=== PATIENT | female | born 1940 | race Caucasian/White ===

== ENCOUNTER → 2021-12-23 14:35 | Outpatient (CLI) | payer MEDICARE, MEDICAID, SELFPAY ==
--- NOTE | ~2021-12-23 | DEXA_ITS ---
Bone Density Report Name: ORLANDO ELENA Age: 81 Sex: Female Ethnicity: White Date of : 1940 Indication: osteopenia; monitoring treatment; height loss; asthma or emphysema; postmenopausal Referring Provider: DINO DODGE Study: Bone densitometry was performed. Exam Date: December 23, 2021 Accession number: [id number] Bone Density: Region BMD T-score Z-score Classification Femoral Neck (Left) 0.473 -3.4 -1.1 Osteoporosis Total Hip (Left) 0.765 -1.4 0.6 Osteopenia Femoral Neck (Right) 0.560 -2.6 -0.3 Osteoporosis Total Hip (Right) 0.798 -1.2 0.9 Osteopenia Total Hip Mean 0.782 -1.3 0.8 Osteopenia World Health Organization criteria for BMD impression classify patients as: Normal (T-score at or above -1.0), Osteopenia (T-score between -1.0 and -2.5), or Osteoporosis (T-score at or below -2.5). 10-year Fracture Risk: FRAX not reported because: Some T-score for Spine Total or Hip Total or Femoral Neck at or below -2.5 Treated for osteoporosis Previous Exams: Region Exam Age BMD T-score BMD Change BMD Change Date g/cm2 vs Baseline vs Previous Total Hip(Left) 12/23/2021 81 0.765 -1.4 -0.078* -0.028* 05/07/2017 77 0.793 -1.2 -0.050* 0.041* 04/16/2015 75 0.753 -1.6 -0.091* -0.061* 05/27/2012 72 0.814 -1.0 -0.030* -0.030* 03/18/2007 66 0.844 -0.8 Total Hip(Right) 12/23/2021 81 0.798 -1.2 -0.032* 0.041* 05/07/2017 77 0.757 -1.5 -0.073* -0.002 04/16/2015 75 0.759 -1.5 -0.071* -0.027 05/27/2012 72 0.786 -1.3 -0.044* -0.044* 03/18/2007 66 0.830 -0.9 *Denotes significance at 95% confidence level, LSC for Total Hip = 0.027 g/cm2 Clinical Information Provided by Patient: Is being treated for osteoporosis Has used the following medications: Boniva (i.e. ibandronate), Vitamin D, Calcium Has the following medical conditions: Asthma or Emphysema Patient maximum height was 60 Menopause Age: 44 No regular weight bearing exercise Onset of menses at age 13 Number of children 2 Impression: The patient has osteoporosis, based on the Left Femoral Neck T-score. The BMD for the Total Hip(Left) decreased, changing by -0.028 since the last DXA exam. Discussion: SIGNIFICANT BONE LOSS OBSERVED. Adherence to therapy (including calcium and vitamin D intake) should be assessed. If compliance is not a factor, review management and exclusion of seconda
== END ==
PROVIDERS: PCP Emergency Medicine; Visit Provider Emergency Medicine
DX: Z78.0 Asymptomatic menopausal state (principal); M81.0 Age-related osteoporosis without current pathological fracture; M85.852 Other specified disorders of bone density and structure, left thigh; M85.851 Other specified disorders of bone density and structure, right thigh
CPT/HCPCS: 77080

== ENCOUNTER 2024-06-26 23:57 | Observation (INO) | payer MEDICARE, MEDICAID, SELFPAY ==
--- NOTE | ~2024-06-26 | CT_ITS ---
Non-contrast Head CT History: Syncope Technique: Axial non-contrast imaging of the brain was performed. Dose reduction technique was used on this scan by utilizing automated exposure control and iterative reconstruction technique. The dose -length product (DLP) was 605.33 mGy-cm. Findings: There is no evidence of intracranial hemorrhage, mass lesion, or acute infarct. Brain par enchyma appears normal. The ventricles and subarachnoid spaces are normal in size. The calvarium ap pears normal. The visualized paranasal sinuses and mastoid air cells are clear. Impression: No significant abnormality seen. Reviewed, dictated and finalized at location . AD CUTTER Impression: No significant abnormality seen.
--- NOTE | ~2024-06-26 | US_ITS ---
EXAMINATION: US carotid duplex BI DATE: 06/27/2024 15:15 INDICATION: Syncope TECHNIQUE: Grayscale, color Doppler, and pulsed Doppler images of the cervical carotid arteries were obtained. The degree of vessel stenosis is placed in one of the following categories: normal, <50%, 5 0-69%, >=70% but less than near-occlusion, near-occlusion, or total occlusion. Note that percent sten osis relative to normal distal artery lumen diameter is indirectly measured from velocity measurement s as described by Wilfredo, et al. Radiology 2003; 229:340-346. Notes: Normal: Peak systolic velocity <125 centimeters/sec and no plaque <50%. Peak systolic velocity <125 ( EDV <40; ICA/CCA PSV ratio <2.0; used these factors only a tandem lesions or low cardiac output or co ntralateral disease) 50-69 %: PSV 125-230 (EDV 40-100; ratio 2-4) >= 70% but less than near occlusion: PSV greater than 230 (EDV > 100; ratio> 4.0) Near Occlusion: PSV that is variable; markedly narrowed lumen Occlusion: Absent flow on color/spectral Doppler and no lumen on rangel scale. COMPARISON: None. FINDINGS: RIGHT: The right common carotid artery (CCA) peak systolic velocity (PSV) is 64 cm/s. The right internal car otid artery (ICA) PSV is 86 cm/s. The right ICA end-diastolic velocity (EDV) is 17 cm/s. The right IC A/CCA PSV ratio is 1.3. The external carotid artery (ECA) PSV is 123 cm/s. There is antegrade flow in the right vertebral artery. LEFT: The left CCA PSV is 84 cm/s. The left ICA PSV is 105 cm/s. The left ICA EDV is 18 cm/s. The left ICA/ CCA PSV ratio is 1.3. The ECA PSV is 139 cm/s. There is antegrade flow in the left vertebral artery. IMPRESSION: 1. Less than 50% stenosis in the right internal carotid artery by sonographic criteria. 2. Less than 50% stenosis in the left internal carotid artery by sonographic criteria. Reviewed, dictated and finalized at location B. ER LUMBER STRAIGHTENER IMPRESSION: 1. Less than 50% stenosis in the right internal carotid artery by sonographic marleni blue. 2. Less than 50% stenosis in the left internal carotid artery by sonographic glo [place].
--- NOTE | ~2024-06-26 | CT_ITS ---
Noncontrast CT scan of the cervical spine Technique: Multiple contiguous axial [address] images of the cervical spine were obtained and rec onstructed in 2D sagittal and coronal planes on the acquisition scanner. Dose reduction technique was used on this scan by utilizing automated exposure control, adjustment of the mA and/or kV according to patient size. The dose-length product (DLP) was 242.03 mGy-cm. Clinical History: Pain Findings: No acute fracture. There is minimal grade 1 anterolisthesis of C4 over C5. There is straigh tening of the normal cervical lordosis. There is minimal grade 1 retrolisthesis of C5 over C6. There is severe degenerative disc narrowing at C3-C4, C5-C6, C6-C7. There is scattered facet joint degenera tive changes cervical spine. There is left neural foraminal narrowing at C5-C6 with probable mild can al stenosis at this level. Bilateral neural foraminal narrowing at C6-C7 with mild canal stenosis. No prevertebral soft tissue swelling. Impression: No acute fracture. Degenerative spondylosis, as above. Reviewed, dictated and finalized at [facility]. ATE CLERK Impression: No acute fracture. Degenerative spondylosis, as above.
--- NOTE | ~2024-06-26 | XR_ITS ---
Left Knee Technique: AP, lateral, and oblique views were obtained. Clinical History: Pain Findings: No fracture or dislocation is seen. Osseous alignment is anatomic. Joint spaces are preserv ed without degenerative or erosive change. Soft tissues are unremarkable. No joint effusion is seen. Impression: Unremarkable left knee radiographs. Reviewed, dictated and finalized at [facility]. MILL AND LATHE OPERATOR Impression: Unremarkable left knee radiographs.
--- NOTE | ~2024-06-26 | XR_ITS ---
Portable chest x-ray Comparison: 04/25/2012 Clinical History: Syncope Findings: Probable mild central congestive changes and possible minimal bibasilar pulmonary disease change. Cardiomediastinal silhouette is stable. Bones and soft tissues are unremarkable. Impression: Possible minimal bibasilar pulmonary edema with minimal central congestive change. Stable cardiomegaly. Reviewed, dictated and finalized at location . DING HOUSE COOK Impression: Possible minimal bibasilar pulmonary edema with minimal central congestive [place]. Stable cardiomegaly.
[2024-06-26 23:58] VITALS: BP 155/94; PULSE 50; RESP 22; TEMP 36.8; O2SAT 97
[2024-06-27] VITALS (38 sets, daily range): BP systolic 103–220; BP diastolic 40–111; PULSE 50–83; RESP 13–30; TEMP 36.6–37.8; O2SAT 92–99; BMI 29.7; BMI 29.9
--- NOTE | 2024-06-27 | ECHO_ITS ---
Patient Info Name: Brianna Martinez Age: 84 years : 1940 Gender: Female Ht: 59 in Wt: 148 lbs BSA: 1.70 m2 HR: 66 bpm BP: 174 / 79 mmHg Technical Quality: Good Exam Date: 06/27/2024 12:22 PM Exam Location: Echo Lab Exam Room: ICU 9 Patient Status: Outpatient Admit Date: 06/27/2024 Staff Ordering Physician: Ruby Hall DO Grease Buffer: Nika Oliveros RDCS Attending Provider: Ruby Hall DO Referring Physician: Isabel DILLARD; Exam Type: CA echo doppler color flow Study Info Complete two-dimensional, color flow and Doppler transthoracic echocardiogram is performed. Summary 1. Left ventricular chamber dimension is normal. 2. Left ventricular systolic function is normal, estimated at >70%. 3. There is moderately increased left ventricular wall thickness. 4. The left ventricular diastolic function is grade I diastolic dysfunction. 5. Right ventricular systolic function is normal. 6. Left atrial chamber dimension is moderately enlarged. 7. Right atrial chamber dimension is moderately enlarged. 8. There is severe aortic valve calcification. 9. There is mild aortic valve stenosis. 10. There is mild aortic valve regurgitation. 11. There is mild mitral valve regurgitation. 12. There is moderate tricuspid valve regurgitation. 13. Pulmonary hypertension. Estimated pulmonary arterial systolic pressure is 73 mmHg. 14. There is trivial anterior pericardial effusion. Left Ventricle Left ventricular chamber dimension is normal. Left ventricular systolic function is normal, estimated at >70%. There is moderately increased left ventricular wall thickness. The left ventricular diastolic function is grade I diastolic dysfunction. Right Ventricle Right ventricular chamber dimension is normal. Right ventricular systolic function is normal. Left Atria Left atrial chamber dimension is moderately enlarged. Right Atria Right atrial chamber dimension is moderately enlarged. Atrial Septum Intact interatrial septum visualized by color flow imaging. Aortic Valve There is mild aortic valve stenosis. There is mild aortic valve regurgitation. There is severe aortic valve calcification. Pulmonic Valve The pulmonic valve is not well visualized. There is no pulmonic regurgitation. Mitral Valve There is mild mitral valve regurgitation. Tricuspid Valve There is moderate tricuspid valve regurgitation. Pulmonary hypertension. Estimated pulmonary arterial systolic pressure is 73 mmHg. Pericardium/Pleural There is trivial anterior pericardial effusion. Inferior Vena Cava Normal inferior vena cava with >50% collapse upon inspiration consistent with normal right atrial pressure, 3 mmHg. Aorta The aortic root size at the sinus of Valsalva is normal. Left Ventricular Outflow Tract Name Value Normal LVOT 2D LVOT Diameter 1.8 cm LVOT Doppler LVOT Peak Gradient 10 mmHg LVOT Mean Gradient 7 mmHg LVOT VTI 34 cm LVOT VTI/AV VTI Ratio 0.6 LVOT Stroke Volume 86 ml LVOT CO 6.2 l/min LVOT CI 3.6 l/min/m2 Pulmonic Valve Name Value Normal PV Doppler PV Peak Gradient 5 mmHg Mitral Valve Name Value Normal MV Doppler MV Peak Gradient 12 mmHg MV Mean Gradient 4 mmHg MV Decel [place] 589 cm/s2 MV PHT 68 ms MV Area (PHT) 3.2 cm2 4.0-5.0 MV Area (Cont Eq VTI) 1.9 cm2 MV Diastolic Function MV E Peak Velocity 138 cm/s MV A Peak Velocity 149 cm/s MV E/A 0.9 MV Decel Time 235 ms MV Annular TDI MV E/e' (Septal) 34.0 <=8.0 MV E/e' (Lateral) 40.8 <=8.0 MV E/e' (Average) 37.4 Tricuspid Valve Name Value Normal TV Regurgitation Doppler TR Peak Velocity 418 cm/s TR Peak Gradient 62 mmHg Estimated PAP/RSVP RA Pressure 3 mmHg <=5 PA Systolic Pressure 73 mmHg <36 RV Systolic Pressure 73 mmHg <36 Aortic Valve Name Value Normal AV Doppler AV Peak Velocity 261 cm/s AV Peak Gradient 23 mmHg AV Mean Gradient 13 mmHg AV VTI 55 cm AV Area (Cont Eq VTI) 1.6 cm2 >=3.0 AV Area (Cont Eq Jovani) 1.7 cm2 AV Regurgitation 2D LVOT Area 2.5 cm2 AV Regurgitation Doppler AR Decel Time 1,784 ms AR Decel [place] 196 cm/s2 AR PHT 517 ms Ventricles Name Value Normal LV Dimensions 2D/MM IVS Diastolic Thickness (2D) 2.9 cm 0.6-1.0 LVID Diastole (2D) 4.3 cm 3.8-5.2 LVIW Diastolic Thickness (2D) 0.9 cm 0.6-0.9 LVID Systole (2D) 3.3 cm 2.2-3.5 LVOT Diameter 1.8 cm LV Mass (2D Cubed) 385.78 g 67.00-162.00 LV Mass Index (2D Cubed) 227 g/m2 43-95 Relative Wall Thickness (2D) 0.44 LV Fractional Shortening/Ejection Fraction 2D/MM LV Fractional Shortening (2D) 24 % 27-45 LV EF (2D Teicholz) 48 % 54-74 LV Diastolic Volume (4C MOD) 74 ml LV EF (4C MOD) 60 % LV Diastolic Length (4C) 6.7 cm LV Systolic Length (4C) 5.3 cm LV Stroke Volume (4C MOD) 44 ml Atria Name Value Normal LA Dimensions LA Volume (4C A-L) 65 ml RA Dimensions RA Area (4C) 17.5 cm2 <=18.0 Report Signatures
--- NOTE | 2024-06-27 00:01 | ECG_ITS ---
Test Date: 2024-06-27 00:01:39 Measurements Intervals [place] Rate: 48 P: 257 SD: 344 QRS: -42 QRSD: 137 T: 83 QT: 430 QTc: 386 Interpretive Statements SINUS BRADYCARDIA WITH SINUS ARRHYTHMIA LEFT AXIS DEVIATION [QRS AXIS < -30] RIGHT BUNDLE BRANCH BLOCK [120+ ms QRS DURATION, UPRIGHT V1, 40+ ms S IN I/aVL/V4/V5/V6] LEFT VENTRICULAR HYPERTROPHY AND ST-T CHANGE [VOLTAGE CRITERIA PLUS ST/T ABNORMALITY] BASELINE ARTIFACT LIMITS INTERPRETATION No previous ECG available for comparison Electronically Signed On 06-28-2024 17:20:38 MAILING MANAGER by Neeraj Lambert M.D.
[2024-06-27] MEDS: SODIUM CHLORIDE 0.9% IV 1,000 ML 999 ML IV CONT (00:07)
[2024-06-27] MEDS: GLUCAGON FOR INJ 1 MG VIAL IV PUSH (00:10)
[2024-06-27 00:22] LABS: Basophils Percent Auto 0.3 % (0.2-1.2); Eosinophils Absolute Auto 0.2 K/mm3 (0-0.3); Eosinophils Percent Auto 2.3 % (0-4.4); Hematocrit 37.9 % (37.0-47.0); Immature Granulocyte Absolute 0.03 K/mm3 (0.00-0.031); Immature Granulocyte Percent A 0.3 % (0-0.5); Lymphocytes Absolute Auto 2.31 K/mm3 (0.9-3.2); Lymphocytes Percent Auto 23.5 % (18.3-44.2); Mean Corpuscular HGB Conc 34.3 g/dl (32-36); Mean Corpuscular Hemoglobin 32.3 pg (26-34); Mean Corpuscular Volume 94.3 fl (80-100); Mean Platelet Volume 10.1 fl (7.4-10.4); Monocytes Absolute Auto 0.9 K/mm3 (0.1-0.6); Monocytes Percent Auto 9.3 % (2.6-8.5); Neutrophils Absolute Auto 6.3 K/mm3 (1.3-6.7); Neutrophils Percent Auto 64.3 % (45.5-73.1); Platelet Count Result 206 k/mm3 (150-375); Red Blood Count 4.02 M/mm3 (4.2-5.4); Red Cell Distribution Width 13.4 % (11.5-14.5); White Blood Count 9.8 K/mm3 (4.5-10.0)
[2024-06-27 00:32] LABS: Lactic Acid Reflex 1.2 mmol/L (0.7-2.0)
[2024-06-27 00:33] LABS: Alanine Aminotransferase 28 U/L (6-35); Albumin Level 3.7 g/dL (3.5-5.1); Alkaline Phosphatase 52 U/L (38-126); Anion Gap 6 mmol/L (4-12); Aspartate Amino Transferase 29 U/L (14-36); Bilirubin,Total 0.8 mg/dL (0.2-1.3); Blood Urea Nitrogen 32 mg/dL (7-17); Calcium 9.5 mg/dL (8.4-10.2); Carbon Dioxide 27 mmol/L (22-30); Chloride 101 mmol/L (98-107); Estimated Glomerular Filt Rate 45; Glucose 140 mg/dL (65-110); Lipase 145 U/L (23-300); Magnesium 1.7 mg/dL (1.6-2.3); Potassium 4.1 mmol/L (3.4-5.0); Sodium 134 mmol/L (137-145)
[2024-06-27 00:34] LABS: Partial Thromboplastin Time 26.8 Seconds (22.3-36.8); Prothrombin Time 13.2 Seconds (11.1-14.7)
[2024-06-27 00:45] LABS: NT Pro B Type Natriuretic Pept 1390 pg/mL (19.9-100); Troponin I 0.017 ng/mL (0.000-0.034)
[2024-06-27] MEDS: DOPamine 400 MG/D5W 250 ML 400 MG/250 ML BAG 5.05 MG IV CONT (00:56)
[2024-06-27 00:58] LABS: Influenza A QL RT-PCR Negative (Negative); Influenza B QL RT-PCR Negative (Negative); RSV RNA, RT-PCR Negative (Negative); SARS-CoV-2 RNA PCR Negative (Negative)
--- NOTE | 2024-06-27 00:58 | ED.GENADULT ---
HPI - General Adult General Chief complaint: Syncope Stated complaint: FALL S/P SYNCOPAL EPISODE, BRADYCARDIC Time Seen by Provider: 06/27/24 00:02 History of Present Illness HPI narrative: Patient 84-year-old female who presents emergency department with chief complaint of syncopal episode. The patient reports she got up to go to the bathroom and as she was walking to the bathroom had a syncopal episode the patient states she felt lightheaded and the next thing as she was on the ground. The patient reports she has pain in her left knee where she has a bruise the patient states that she has felt lightheaded when EMS arrived they noticed that she was bradycardic and had several episodes of pauses. The patient does report that she takes [employer] Related Data Home Medications ?Medication ?Instructions ?Recorded ?Confirmed ?Last Taken ?Type multivitamin 1 tablet PO .COMPLEX 08/07/19 03/22/24 Unknown History niacin 500 mg tablet 500 mg PO TID 08/07/19 03/22/24 Unknown History calcium 600 mg (as carbonate)-vit tablet PO BID 01/02/20 03/22/24 Unknown History D3 10 mcg (400 unit) chewable tablet cholecalciferol (vitamin D3) 125 See Rx Instructions .Route .COMPLEX 01/02/20 03/22/24 Unknown History mcg (5,000 unit) capsule albuterol sulfate 90 mcg/actuation 1 puff inhalation Q4H PRN 11/02/23 03/22/24 Unknown History aerosol inhaler Allergies Allergy/AdvReac Type Severity Reaction Status Date / Time epinephrine Allergy Unknown unknown Verified 02/29/24 10:03 Penicillins Allergy Unknown unknown Verified 02/29/24 10:03 Review of Systems Review of Systems: A 10 system review of systems was completed on the patient and is negative except for what is stated in the HPI. Nursing and ancillary documentation was reviewed. [facility] Past Medical History Medical History Ringworm of body Body mass index [BMI] 30.0-30.9, adult (07/20/17) Body mass index [BMI] 31.0-31.9, adult (11/10/16) Body mass index [BMI] 32.0-32.9, adult (05/07/15) Body mass index [BMI] 33.0-33.9, adult (11/05/15) Bullous pemphigoid Hyperglycemia Left foot pain Other dorsalgia Other hyperlipidemia Pain in left may Right shoulder pain Mammogram declined HTN (hypertension) Osteoporosis Family History Family History Father Family history of malignant neoplasm, Onset Age: 67 Mother Family history of malignant neoplasm, Onset Age: 67 Social History Social History Smoking status: Never smoker Second hand tobacco smoke exposure: No Alcohol intake: never Substance use: never Substance use type: does not use Current Housing: Decline to Answer Concerned About Future Housing: Decline to Answer Difficulty Paying Gas/Electric Bills: Decline to Answer Difficulty Paying for Meds: Decline to Answer Currently Unemployed: Decline to Answer Education: Decline to Answer Difficulty w/ Childcare or Family Care: Decline to Answer Gender identity (if verbalized by the patient): Female Spiritual care concerns: No Agree to blood products: Yes Exam Narrative: GENERAL: Well-appearing, well-nourished, and in no acute distress. HEAD: Normocephalic, atraumatic. EYES: PERRLA and EOMI. ENT: Nares clear, no rhinorrhea or epistaxis. Mucous membranes moist. NECK: Supple. CHEST: Clear to auscultation. No respiratory distress. HEART: Bradycardic rate and regular rhythm. No murmur heard. Normal peripheral pulses. ABDOMEN: Soft, nontender, nondistended, normal active bowel sounds. EXTREMITIES: Normal range of motion. No edema. SKIN: Warm, dry, no rash. NEURO: No focal deficits. Alert and oriented x3. PSYCH: Normal mood and affect. Course Vital Signs Vital signs: Vital Signs Temperature 36.8 C 06/26/24 23:58 Pulse Rate 50 L 06/26/24 23:58 Respiratory Rate 22 H 06/26/24 23:58 Blood Pressure 155/94 H 06/26/24 23:58 Pulse Oximetry 97 06/26/24 23:58 Oxygen Delivery Room Air 06/26/24 23:58 Temperature 36.8 C 06/26/24 23:58 Pulse Rate 65 06/27/24 02:06 Respiratory Rate 22 H 06/27/24 02:06 Blood Pressure 171/62 H 06/27/24 02:06 Pulse Oximetry 93 06/27/24 02:06 Oxygen Delivery Room Air 06/26/24 23:58 Medical Decision Making [facility] [place] Narrative Medical decision making narrative: Differential diagnosis includes beta-cosmo new some bradycardia, sick sinus syndrome, bradycardia, electrolyte abnormality, renal failure, intracranial hemorrhage CT head CT C-spine showed no acute abnormality CBC showed white count 9.8 hemoglobin was 13.0 electrolytes showed a creatinine of 1.15 and BUN of 32 lactic acid was 1.2 troponin 0.017 COVID flu and RSV were negative While in the emergency department the patient had a episode where she proceeded Lazaro down into the 20s and had a near syncopal episode. The patient was given glucagon to attempt to reverse the effects of her beta-cosmo and also the patient was started on a low-dose dopamine drip that has maintained the patient's heart rate. The case was discussed with both the hospitalist insurance sales producer and cardiology Vital Signs Vital Signs: Vital Signs Temperature 36.8 C 06/26/24 23:58 Pulse Rate 50 L 06/26/24 23:58 Respiratory Rate 22 H 06/26/24 23:58 Blood Pressure 155/94 H 06/26/24 23:58 Pulse Oximetry 97 06/26/24 23:58 Oxygen Delivery Room Air 06/26/24 23:58 Temperature 36.8 C 06/26/24 23:58 Pulse Rate 65 06/27/24 02:06 Respiratory Rate 22 H 06/27/24 02:06 Blood Pressure 171/62 H 06/27/24 02:06 Pulse Oximetry 93 06/27/24 02:06 Oxygen Delivery Room Air 06/26/24 23:58 Lab Data 06/27/24 00:14 06/27/24 00:14 Labs: Lab Results 06/27/24 Range/Units 00:14 WBC 9.8 (4.5-10.0) K/mm3 RBC 4.02 L (4.2-5.4) M/mm3 Hgb 13.0 (12.0-15.0) g/dL Hct 37.9 (37.0-47.0) % MCV 94.3 (80-100) fl MCH 32.3 (26-34) pg MCHC 34.3 (32-36) g/dl RDW 13.4 (11.5-14.5) % Plt Count 206 (150-375) k/mm3 MPV 10.1 (7.4-10.4) fl Immature Gran % (Auto) 0.3 (0-0.5) % Neut % (Auto) 64.3 (45.5-73.1) % Lymph % (Auto) 23.5 (18.3-44.2) % [place] % (Auto) 9.3 H (2.6-8.5) % Eos % (Auto) 2.3 (0-4.4) % Baso % (Auto) 0.3 (0.2-1.2) % Lymph # (Auto) 2.31 (0.9-3.2) K/mm3 [place] # (Auto) 0.9 H (0.1-0.6) K/mm3 Eos # (Auto) 0.2 (0-0.3) K/mm3 Baso # (Auto) 0.0 (0.0-0.1) K/mm3 Abs Immat Gran (auto) 0.03 (0.00-0.031) K/mm3 Absolute Neuts (auto) 6.3 (1.3-6.7) K/mm3 Absolute Nucleated RBC 0.000 (0.0-0.012) K/mm3 Nucleated RBC % 0.0 (0.0-0.2) % PT 13.2 (11.1-14.7) Seconds INR 1.0 APTT 26.8 (22.3-36.8) Seconds Sodium 134 L (137-145) mmol/L Potassium 4.1 (3.4-5.0) mmol/L Chloride 101 (98-107) mmol/L Carbon Dioxide 27 (22-30) mmol/L Anion Gap 6 (4-12) mmol/L BUN 32 H (7-17) mg/dL Creatinine 1.15 H (0.7-1.0) mg/dL Estim Creat Clear Calc Not Reportable Estimated GFR 45 L (59 - ) Glucose 140 H (65-110) mg/dL Lactic Acid 1.2 (0.7-2.0) mmol/L Calcium 9.5 (8.4-10.2) mg/dL Magnesium 1.7 (1.6-2.3) mg/dL Total Bilirubin 0.8 (0.2-1.3) mg/dL AST 29 (14-36) U/L ALT 28 (6-35) U/L Alkaline Phosphatase 52 (38-126) U/L Troponin I 0.017 (0.000-0.034) ng/mL NT-Pro-B Natriuret Pep 1390 H (19.9-100) pg/mL Total Protein 7.0 (6.3-8.2) g/dL Albumin 3.7 (3.5-5.1) g/dL Lipase 145 (23-300) U/L Influenza A (RT-PCR) Negative (Negative) Influenza B (RT-PCR) Negative (Negative) RSV (RT-PCR) Negative (Negative) SARS-CoV-2 RNA (RT-PCR) Negative (Negative) Critical Care Time Critical Care Time Critical Care Time: Yes Total Critical Care Time: 75 Discharge Plan Discharge Clinical Impression: Syncope, Bradycardia Patient Disposition: Still a Patient Condition: Stable Patient Language: Iranian Prescriptions: No Action cholecalciferol (vitamin D3) 125 mcg (5,000 unit) capsule See Rx Instructions .ROUTE .COMPLEX Rx Instructions: Take 2 capsules by mouth once daily; calcium carbonate-vitamin D3 600 mg(1,500mg) -400 unit tablet,chewable PO BID ketoconazole 2 % cream 1 applic topical DAILY Qty: 30 0RF multivitamin Tablet 1 tablet PO .COMPLEX Rx Instructions: 1 tablet PO daily with food; niacin 500 mg tablet 500 mg PO TID albuterol sulfate 90 mcg/actuation HFA aerosol inhaler 1 puff inhalation Q4H PRN fluticasone propion-salmeterol [Advair Diskus] 250-50 mcg/dose blister with device See Rx Instructions .ROUTE .COMPLEX Qty: 60 0RF Rx Instructions: inhale 1 puff by inhalation route 2 times every day in the morning and evening approximately 12 hours apart atorvastatin 40 mg tablet See Rx Instructions .ROUTE .COMPLEX Qty: 90 2RF Dose Instruction: TAKE 1 TABLET BY MOUTH ONCE DAILY Rx Instructions: TAKE 1 TABLET BY MOUTH ONCE DAILY carvedilol 12.5 mg tablet See Rx Instructions .ROUTE .COMPLEX Qty: 180 2RF Dose Instruction: TAKE 1 TABLET BY MOUTH TWICE DAILY WITH MEALS Rx Instructions: TAKE 1 TABLET BY MOUTH TWICE DAILY WITH MEALS meloxicam 15 mg tablet See Rx Instructions .ROUTE .COMPLEX Qty: 90 2RF Dose Instruction: TAKE 1 TABLET BY MOUTH ONCE DAILY Rx Instructions: TAKE 1 TABLET BY MOUTH ONCE DAILY furosemide 40 mg tablet See Rx Instructions .ROUTE .COMPLEX Qty: 90 2RF Dose Instruction: TAKE 1 TABLET BY MOUTH ONCE DAILY Rx Instructions: TAKE 1 TABLET BY MOUTH ONCE DAILY omeprazole 40 mg capsule,delayed release(DR/EC) See Rx Instructions .ROUTE .COMPLEX Qty: 90 2RF Dose Instruction: TAKE 1 CAPSULE BY MOUTH DAILY Rx Instructions: TAKE 1 CAPSULE BY MOUTH DAILY calcium carbonate-vitamin D3 [Oyster Shell Calcium-Vit D3] 500 mg-5 mcg (200 unit) tablet 1 tablet PO TID Qty: 270 2RF ibandronate 150 mg tablet See Rx Instructions .ROUTE .COMPLEX Qty: 3 2RF Dose Instruction: TAKE 1 TAB BY MOUTH ON EMPTY STOMACH ONCE A MONTH REMAIN UPRIGHT.DO NOT EAT 1HR AFTER DOSE Rx Instructions: TAKE 1 TAB BY MOUTH ON EMPTY STOMACH ONCE A MONTH REMAIN UPRIGHT.DO NOT EAT 1HR AFTER DOSE potassium chloride 20 mEq tablet,ER particles/crystals See Rx Instructions .ROUTE .COMPLEX Qty: 90 2RF Dose Instruction: TAKE 1 TABLET BY MOUTH DAILY WITH FOOD Rx Instructions: TAKE 1 TABLET BY MOUTH DAILY WITH FOOD losartan 25 mg tablet See Rx Instructions .ROUTE .COMPLEX Qty: 30 5RF Dose Instruction: TAKE 1 TABLET BY MOUTH ONCE DAILY Rx Instructions: TAKE 1 TABLET BY MOUTH ONCE DAILY Follow-up/Referrals: Norbert Landry MD [Primary Care Provider] - Time of Disposition: 02:34
[2024-06-27 04:02] LABS: Troponin I 0.018 ng/mL (0.000-0.034)
--- NOTE | 2024-06-27 06:05 | ADMGEN ---
This patient, Brianna Martinez, was admitted to Intensive Care Unit-9. Patient/family oriented to hospital policies and general routines including ID bracelet, bed and alarms, visiting hours, pain management, procedures, bathroom and other care routines, personal items, smoking policy, room service/diet, and visiting hours. Information on how to activate the Rapid Response Team has been discussed. Patient/Family are encouraged to report perceived risks to care and to ask questions if they do not understand what they are told or what they should do.
--- NOTE | 2024-06-27 06:26 | PM.IMHP ---
H&P: HPI History of Present Illness Date/Time: 06/27/24 06:26 Chief Complaint: Passed out Narrative: 84-year-old female with a past medical history of osteopenia, spinal stenosis, right rotator cuff tear, hyperlipidemia, essential hypertension, GERD, COPD, diabetes mellitus and peripheral neuropathy who presented to the ER from [facility] after having a syncopal event. The patient had gotten up to walk to the bathroom when she suddenly became lightheaded in the next thing she knew she woke up on the floor. She reports that she has been in her usual state of health. She had noticed some per Min episodes of weakness and shortness of breath that have been ongoing for the last several months. However the episodes would not last very long. She denies any chest pain or palpitations. She has not noticed any significant shortness of breath. On EMS arrival to her home the patient was noted to be bradycardic with heart rates in the 30s and 40s and she had several episodes of pausing. Patient's rhythm is extremely irregular in the ER although the EKG obtained in the ER demonstrated sinus bradycardia. Her telemetry has since demonstrated variable rhythm with frequent bigeminy and pauses. At times the telemetry appears to have P waves and at other times they are absent. In the ER the patient did have an episode where she became in bradycardic down into the low 20s when she went to CT scan. At that time she became nauseous and flushed in felt ill. She was near syncopal at that time. She did get 1 dose of glucagon to try to reverse the effects of her Coreg. She has been on Coreg for years in her doses unchanged. She was started on low-dose dopamine in the ER to try to avoid episodes of symptomatic bradycardia. All of the patient's recorded blood pressures from the ER have been upper limit of normal after the patient placed on dopamine her blood pressures have been high ranging between 160s to 200s systolic. The only other symptom that she reports to me is that she now acutely feels like she cannot urinate. She reports his sensation of fullness in her bladder. She denies any dysuria. She states that she did not had the symptoms with her bladder prior to coming to the hospital. Source of information comes from review of past medical records, ER physician report, EMS report and patient report. Patient is alert orient x3. Multiple staff members have had discussion of about code status with the patient. She initially stated that she did not know she wanted want cardiopulmonary resuscitation. She then stated that she would be open to a pacemaker. In when she came to the ICU she stated that she did not think she would want a pacemaker. At this time will hold patient's Coreg. The patient would like her son to be present when she is evaluated by the cuff stitcher so that they can discuss whether she gets a pacemaker the family. Review of Systems Review of Systems: 12 systems were reviewed with pertinent positives and negatives per HPI. Except as documented in the HPI, all other systems were reviewed and are negative. [facility] Past Medical History Medical History (Updated 06/27/24 @ 08:39 by Ruby Hall DO) Essential hypertension Vitamin D deficiency Chronic obstructive pulmonary disease, unspecified CKD (chronic kidney disease) stage 3, GFR 30-59 ml/min Right rotator cuff tear Pre-diabetes Body mass index [BMI] 30.0-30.9, adult (07/20/17) Bullous pemphigoid Other dorsalgia Other hyperlipidemia Pain in left may Mammogram declined Osteoporosis Surgical History Surgical History (Updated 06/27/24 @ 08:09 by Ruby Hall DO) Status post cataract extraction of both eyes with insertion of intraocular lens S/P insertion of spinal cord stimulator Family History Family History Father Family history of malignant neoplasm, Onset Age: 67 Mother Family history of malignant neoplasm, Onset Age: 67 Daughter Multiple sclerosis Son Diabetes mellitus Social History Social History (Updated 06/27/24 @ 08:11 by Ruby Hall DO) Social History: The patient reports that she has been since 2013. She moved to [facility] after her . She has a daughter and a son. She is a lifelong nonsmoker and does not drink alcohol or use illicit substances. Code status: Patient reports she does not have advanced directives and does not think that she would want CPR but wants to discuss this with her family. Surrogate decision maker: Victorino Vargas (son) Smoking status: Never smoker Second hand tobacco smoke exposure: No Alcohol intake: never Substance use: never Substance use type: does not use Do You Feel Safe in your Home?: Yes Lack of Transportation: No Lack of Food: Never True Current Housing: I Have Housing Concerned About Future Housing: No Difficulty Paying Gas/Electric Bills: No Difficulty Paying for Meds: No Currently Unemployed: No Education: Decline to Answer Difficulty w/ Childcare or Family Care: No Gender identity (if verbalized by the patient): Female Spiritual care concerns: No Agree to blood products: Yes Meds Home Medications and Allergies Home Medications ?Medication ?Instructions ?Recorded ?Confirmed ?Type niacin 500 mg tablet 500 mg PO TID 08/07/19 06/27/24 History atorvastatin 40 mg tablet See Rx Instructions .Route 01/31/24 06/27/24 Rx .COMPLEX #90 tabs carvedilol 12.5 mg tablet See Rx Instructions .Route 01/31/24 06/27/24 Rx .COMPLEX #180 tabs furosemide 40 mg tablet See Rx Instructions .Route 03/27/24 06/27/24 Rx .COMPLEX #90 tabs meloxicam 15 mg tablet See Rx Instructions .Route 03/27/24 06/27/24 Rx .COMPLEX #90 tabs omeprazole 40 mg capsule,delayed See Rx Instructions .Route 04/17/24 06/27/24 Rx release .COMPLEX #90 caps calcium 500 mg (as 1 tablet PO TID #270 tabs 05/11/24 06/27/24 Rx carbonate)-vitamin D3 5 mcg (200 unit) tablet (Oyster Shell Calcium-Vitamin D3) ibandronate 150 mg tablet See Rx Instructions .Route 05/29/24 06/27/24 Rx .COMPLEX #3 tabs potassium chloride 20 mEq See Rx Instructions .Route 06/05/24 06/27/24 Rx tablet,extended release(part/cryst) .COMPLEX #90 tabs losartan 25 mg tablet See Rx Instructions .Route 06/12/24 06/27/24 Rx .COMPLEX #30 tabs benzonatate 100 mg capsule 100 mg PO TID 06/27/24 06/27/24 History Allergies Allergy/AdvReac Type Severity Reaction Status Date / Time epinephrine Allergy Unknown unknown Verified 02/29/24 10:03 Penicillins Allergy Unknown unknown Verified 02/29/24 10:03 Vital Signs Vital Signs - 24 hr 06/26/24 23:58 06/27/24 00:08 06/27/24 00:15 Temperature 98.2 F Pulse Rate 50 L 50 L 50 L Respiratory Rate 22 H 17 18 Blood Pressure 155/94 H Pulse Oximetry 97 96 Oxygen Delivery Room Air 06/27/24 00:18 06/27/24 00:41 06/27/24 00:46 Temperature Pulse Rate 53 L 81 81 Respiratory Rate 18 21 H 21 H Blood Pressure 219/60 H 220/64 H 213/66 H Pulse Oximetry 97 98 97 Oxygen Delivery 06/27/24 00:56 06/27/24 01:00 06/27/24 01:01 Temperature Pulse Rate 77 75 70 Respiratory Rate 17 22 H Blood Pressure 213/66 H 161/84 H Pulse Oximetry 96 99 Oxygen Delivery 06/27/24 01:02 06/27/24 01:05 06/27/24 01:21 Temperature Pulse Rate 72 74 83 Respiratory Rate 22 H 14 Blood Pressure 190/65 H 168/105 H Pulse Oximetry 97 99 93 Oxygen Delivery 06/27/24 01:56 06/27/24 02:01 06/27/24 02:06 Temperature Pulse Rate 69 67 65 Respiratory Rate 16 18 22 H Blood Pressure 173/58 H 179/70 H 171/62 H Pulse Oximetry 94 93 93 Oxygen Delivery 06/27/24 02:21 06/27/24 02:31 06/27/24 02:32 Temperature Pulse Rate 66 68 72 Respiratory Rate 15 14 19 Blood Pressure 170/67 H 168/81 H Pulse Oximetry 93 94 93 Oxygen Delivery 06/27/24 03:07 06/27/24 03:11 06/27/24 03:15 Temperature Pulse Rate 70 69 69 Respiratory Rate 19 16 13 Blood Pressure 172/90 H Pulse Oximetry 96 95 95 Oxygen Delivery 06/27/24 03:16 06/27/24 03:20 06/27/24 03:31 Temperature Pulse Rate 71 74 68 Respiratory Rate 13 22 H 15 Blood Pressure 177/65 H 139/66 145/111 H Pulse Oximetry 96 93 92 Oxygen Delivery Exam Narrative: Laboratory Tests 06/27/24 00:14 06/27/24 00:14 06/27/24 06/27/24 00:14 03:33 WBC 9.8 RBC 4.02 L Hgb 13.0 Hct 37.9 MCV 94.3 MCH 32.3 MCHC 34.3 RDW 13.4 Plt Count 206 MPV 10.1 Immature Gran % (A uto) 0.3 Neut % (Auto) 64.3 Lymph % (Auto) 23.5 [place] % (Auto) 9.3 H Eos % (Auto) 2.3 Baso % (Auto) 0.3 Lymph # (Auto) 2.31 [place] # (Auto) 0.9 H Eos # (Auto) 0.2 Baso # (Auto) 0.0 Abs Immat Gran (au to) 0.03 Absolute Neuts (au to) 6.3 Absolute Nucleated RBC 0.000 Nucleated RBC % 0.0 PT 13.2 INR 1.0 APTT 26.8 Sodium 134 L Potassium 4.1 Chloride 101 Carbon Dioxide 27 Anion Gap 6 BUN 32 H Creatinine 1.15 H Estim Creat Clear Calc Not Reportable Estimated GFR 45 L Glucose 140 H Lactic Acid 1.2 Calcium 9.5 Magnesium 1.7 Total Bilirubin 0.8 AST 29 ALT 28 Alkaline Phosphata se 52 Troponin I 0.017 0.018 NT-Pro-B Natriuret Pep 1390 H Total Protein 7.0 Albumin 3.7 Lipase 145 Influenza A (RT-PC R) Negative Influenza B (RT-PC R) Negative RSV (RT-PCR) Negative SARS-CoV-2 RNA (RT -PCR) Negative Impressions Head CT 06/27/24 05:12 Impression: No significant abnormality seen. Cervical Spine CT 06/27/24 05:13 Impression: No acute fracture. Degenerative spondylosis, as above. Knee X-Ray 06/27/24 05:13 Impression: Unremarkable left knee radiographs. Chest X-Ray 06/27/24 05:18 Impression: Possible minimal bibasilar pulmonary edema with minimal central congestive change. Stable cardiomegaly. EKG: Sinus bradycardia All imaging and EKGs personally reviewed and interpreted. And unless stated otherwise agree with radiologic and cardiology interpretation. Const: Other: Weight 67.3 kg BMI 30 HENMT: Other: Mucous membranes are dry, no oral pharyngeal erythema, fair dentition, head is normocephalic atraumatic Eyes: Other: Pupils are equal and reactive, bilateral lens replacements noted, extraocular movements intact Neck: Other: No JVD, no thyromegaly Resp: Other: Clear to auscultation bilaterally, no increased work of breathing Cardio: Other: Irregularly irregular rhythm, 2+ bilateral radial pedal pulses, no murmur, no JVD GI: Other: Soft, nontender, palpable fullness in the lower abdomen that seems to and around the umbilicus, normoactive bowel sounds Skin: Other: No jaundice, no pallor Neuro: Other: Alert orient x3, speech is clear, no facial asymmetry, no localizing neurologic deficits noted during conversation Extrem: Other: No clubbing, cyanosis or edema, moves all extremities equally Psych: Other: Appropriate mood and affect, pleasant and cooperative, judgment and insight fair H&P: Results Labs Labs: Laboratory Tests 06/27/24 00:14 06/27/24 00:14 06/27/24 06/27/24 00:14 03:33 WBC 9.8 RBC 4.02 L Hgb 13.0 Hct 37.9 MCV 94.3 MCH 32.3 MCHC 34.3 RDW 13.4 Plt Count 206 MPV 10.1 Immature Gran % (Auto) 0.3 Neut % (Auto) 64.3 Lymph % (Auto) 23.5 [place] % (Auto) 9.3 H Eos % (Auto) 2.3 Baso % (Auto) 0.3 Lymph # (Auto) 2.31 [place] # (Auto) 0.9 H Eos # (Auto) 0.2 Baso # (Auto) 0.0 Abs Immat Gran (auto) 0.03 Absolute Neuts (auto) 6.3 Absolute Nucleated RBC 0.000 Nucleated RBC % 0.0 PT 13.2 INR 1.0 APTT 26.8 Sodium 134 L Potassium 4.1 Chloride 101 Carbon Dioxide 27 Anion Gap 6 BUN 32 H Creatinine 1.15 H Estim Creat Clear Calc Not Reportable Estimated GFR 45 L Glucose 140 H Lactic Acid 1.2 Calcium 9.5 Magnesium 1.7 Total Bilirubin 0.8 AST 29 ALT 28 Alkaline Phosphatase 52 Troponin I 0.017 0.018 NT-Pro-B Natriuret Pep 1390 H Total Protein 7.0 Albumin 3.7 Lipase 145 Influenza A (RT-PCR) Negative Influenza B (RT-PCR) Negative RSV (RT-PCR) Negative SARS-CoV-2 RNA (RT-PCR) Negative Impressions Head CT 06/27/24 05:12 Impression: No significant abnormality seen. Cervical Spine CT 06/27/24 05:13 Impression: No acute fracture. Degenerative spondylosis, as above. Knee X-Ray 06/27/24 05:13 Impression: Unremarkable left knee radiographs. Chest X-Ray 06/27/24 05:18 Impression: Possible minimal bibasilar pulmonary edema with minimal central congestive change. Stable cardiomegaly. EKGs from the ER and telemetry from the ER, telemetry from EMS and telemetry in ICU reviewed All imaging and EKGs personally reviewed and interpreted. And unless stated otherwise agree with radiologic and cardiology interpretation. Assessment and Plan Assessment and plan (1) Syncope: Qualifiers: Syncope type: unspecified Qualified Code(s): R55 - Syncope and collapse Code(s): R55 - Syncope and collapse Status: Acute (2) Symptomatic bradycardia: Code(s): R00.1 - Bradycardia, unspecified Status: Acute (3) Arrhythmia: Qualifiers: Arrhythmia type: unspecified cardiac arrhythmia Qualified Code(s): I49.9 - Cardiac arrhythmia, unspecified Code(s): I49.9 - Cardiac arrhythmia, unspecified Status: Acute (4) Essential hypertension: Code(s): I10 - Essential (primary) hypertension Status: Acute Plan Patient is having symptomatic bradycardia with variable rhythm some of which appears to be atrial fibrillation and or junctional in nature. Patient was placed on dopamine for symptomatic bradycardia with rates down to the 20s. However this morning patient was down to 1 mg of dopamine and was having blood pressures in the 220s. Her heart rate had improved for the most part to the 60s but she was still have episodes of pauses. At this time dobutamine has been discontinued. Her rhythm remains irregular. Patient has been admitted to the ICU in the brass bobbin winder has been consulted. Cardiology was also consulted from the ER. Will obtain echocardiogram to further evaluate cardiac structure and function. Cardiology has been consulted. The patient's Coreg has been placed on hold. Patient's blood pressures remain elevated with her lowest blood pressure being 139 systolic. Will defer antihypertensive management to Cardiology and or brass bobbin winder. Patient has chronic pain in her right shoulder due to rotator cuff tear will order patient's home Voltaren gel. 35 minute spent in critical care activities. Quality VTE Prophylaxis VTE prophylaxis: mechanical ordered (SCDs) Hospitalist MIPS Advance Care Plan I have confirmed that the patient's Advanced Care Plan is present, code status is documented, or surrogate decision maker is listed in patient medical record.: Yes Medication Reconciliation I have utilized all available resources to obtain, update and review the patients current medications (includes all prescriptions, OTC, herbals, cannabis, and nutritional supplements).: Yes
[2024-06-27] MEDS: ONDANSETRON INJ 4 MG/2 ML VIAL IV PUSH (07:01)
[2024-06-27 09:19] LABS: Troponin I 0.022 ng/mL (0.000-0.034)
[2024-06-27] MEDS: SODIUM CHLORIDE 0.9% IV 1,000 ML 75 ML IV CONT (09:20)
[2024-06-27] MEDS: NIACIN SA 500 MG TABLET PO ×3 (09:21→18:38)
[2024-06-27] MEDS: CALCIUM/VITAMIN D 500 MG/5 MCG (200 I.U.) TABLET PO ×3 (09:21→18:39)
[2024-06-27] MEDS: POTASSIUM CHLORIDE 20 MEQ ER TABLET PO (09:22)
[2024-06-27] MEDS: PANTOPRAZOLE 40 MG TABLET PO ×2 (09:22→20:55)
[2024-06-27] MEDS: DICLOFENAC SODIUM 1% 100 GM GEL (*BKC) 1 APPLIC TOPICAL ×4 (09:29→20:55)
--- NOTE | 2024-06-27 09:58 | P.CONIN_ITS ---
Assessment and Plan Assessment and plan (1) Symptomatic bradycardia: Code(s): R00.1 - Bradycardia, unspecified Status: Acute Assessment and Plan: Patient presented with syncope, symptomatic bradycardia with heart rates in the 20s to 40s with brief pauses. EKG did show sinus bradycardia -Patient status post glucagon, also was started on dopamine infusion which is currently off -likely related to carvedilol which she took on 06/26/2024 in the evening -will add carvedilol washout, patient been given IV fluids -avoid any AV dulce maria blocking agents -appreciate cardiology evaluating the patient, if she continues to have bradycardia despite washout of beta-cosmo, would consider pacemaker (2) HTN (hypertension): Qualifiers: Hypertension type: essential hypertension Qualified Code(s): I10 - Essential (primary) hypertension Code(s): I10 - Essential (primary) hypertension Status: Acute Assessment and Plan: Blood pressures have been stable to high at times -will restart losartan, -avoid AV dulce maria blockers (3) CKD (chronic kidney disease) stage 3, GFR 30-59 ml/min: Code(s): N18.30 - Chronic kidney disease, stage 3 unspecified Status: Acute Assessment and Plan: Patient with CKD, creatinine close to baseline -continue to monitor urine output, renal function electrolyte (4) HLD (hyperlipidemia): Qualifiers: Hyperlipidemia type: mixed hyperlipidemia Qualified Code(s): E78.2 - Mixed hyperlipidemia Code(s): E78.5 - Hyperlipidemia, unspecified Status: Acute Assessment and Plan: Continue atorvastatin Plan DVT prophylaxis: SCDs, Lovenox Stress ulcer prophylaxis: Protonix which she takes at home Nutrition: Heart healthy diet Code Status: Full code Critical Care Time Spent: 47 minutes Due to a high probability of clinically significant, life threatening deterioration, the patient required my highest level of preparedness to intervene emergently and I personally spent this critical care time directly and personally managing the patient. This critical care time included obtaining a history; examining the patient; pulse oximetry; ordering and review of studies; arranging urgent treatment with development of a management plan; evaluation of patient's response to treatment; frequent reassessment; and discussions with other providers. It was exclusive of separately billable procedures and treating other patients and teaching time. Please see Assessment and Plan section and the rest of the note for further information on patient assessment and treatment This dictation may have been done utilizing a voice recognition system. Attempts have been made to correct errors. However, there may be uncorrected grammatical, spelling, and recognitions errors present. 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 S patient got up to walk to the bathroom, when she suddenly became lightheaded and the next thing she knew she woke up on the floor. She has been noticing some weakness and shortness of breath ongoing for the last several months, but has not had any episodes of syncope in the past. Upon arrival of the EMS heart rates were in the 30s to 40s with significant pauses. In the ED patient's heart rate went down to the 20s and had a near-syncopal episode at that time. She was started on dopamine in the ER. Was also given glucagon as the patient is on Coreg at home. Blood pressures have been stable and on the higher end at time. Patient denies any chest pain, shortness a breath abdominal pain, nausea vomiting at this time. Labs were within normal limits, troponins were negative, proBNP was 1390. She was negative for influenza, RSV and COVID. CT brain did not show any acute intracranial abnormality. CT cervical spine with no fractures, degenerative spondylosis. Left knee x-ray was unremarkable. Chest x-ray with possible minimal bibasilar pulmonary edema with minimal central congestive changes. Patient was transferred to the ICU on dopamine infusion Patient seen examined in the ICU this morning, pleasant female currently in no acute distress, denies any chest pain, shortness a breath, abdominal pain, nausea, vomiting. Blood pressures have been stable, patient is currently off dopamine with heart rates in the 60s to 70s, irregular rhythm. Currently on room air with adequate O2 sats. Review of Systems 2 Review of Systems: All systems reviewed & are unremarkable except as noted in HPI and below [facility] Past Medical History Medical History (Updated 06/27/24 @ 08:39 by Ruby Hall, ) Essential hypertension Vitamin D deficiency Chronic obstructive pulmonary disease, unspecified CKD (chronic kidney disease) stage 3, GFR 30-59 ml/min Right rotator cuff tear Pre-diabetes Body mass index [BMI] 30.0-30.9, adult (07/20/17) Bullous pemphigoid Other dorsalgia Other hyperlipidemia Pain in left may Mammogram declined Osteoporosis Surgical History Surgical History (Updated 06/27/24 @ 08:09 by Ruby Hall DO) Status post cataract extraction of both eyes with insertion of intraocular lens S/P insertion of spinal cord stimulator Family History Family History Father Family history of malignant neoplasm, Onset Age: 67 Mother Family history of malignant neoplasm, Onset Age: 67 Daughter Multiple sclerosis Son Diabetes mellitus Social History Social History (Updated 06/27/24 @ 08:11 by Ruby Hall DO) Social History: The patient reports that she has been since 2013. She moved to [facility] after her . She has a daughter and a son. She is a lifelong nonsmoker and does not drink alcohol or use illicit substances. Code status: Patient reports she does not have advanced directives and does not think that she would want CPR but wants to discuss this with her family. Surrogate decision maker: Victorino Sam (son) Smoking status: Never smoker Second hand tobacco smoke exposure: No Alcohol intake: never Substance use: never Substance use type: does not use Do You Feel Safe in your Home?: Yes Lack of Transportation: No Lack of Food: Never True Current Housing: I Have Housing Concerned About Future Housing: No Difficulty Paying Gas/Electric Bills: No Difficulty Paying for Meds: No Currently Unemployed: No Education: Decline to Answer Difficulty w/ Childcare or Family Care: No Gender identity (if verbalized by the patient): Female Spiritual care concerns: No Agree to blood products: Yes Meds Home Medications and Allergies Home Medications ?Medication ?Instructions ?Recorded ?Confirmed ?Type niacin 500 mg tablet 500 mg PO TID 08/07/19 06/27/24 History atorvastatin 40 mg tablet See Rx Instructions .Route 01/31/24 06/27/24 Rx .COMPLEX #90 tabs carvedilol 12.5 mg tablet See Rx Instructions .Route 01/31/24 06/27/24 Rx .COMPLEX #180 tabs furosemide 40 mg tablet See Rx Instructions .Route 03/27/24 06/27/24 Rx .COMPLEX #90 tabs meloxicam 15 mg tablet See Rx Instructions .Route 03/27/24 06/27/24 Rx .COMPLEX #90 tabs omeprazole 40 mg capsule,delayed See Rx Instructions .Route 04/17/24 06/27/24 Rx release .COMPLEX #90 caps calcium 500 mg (as 1 tablet PO TID #270 tabs 05/11/24 06/27/24 Rx carbonate)-vitamin D3 5 mcg (200 unit) tablet (Oyster Shell Calcium-Vitamin D3) ibandronate 150 mg tablet See Rx Instructions .Route 05/29/24 06/27/24 Rx .COMPLEX #3 tabs potassium chloride 20 mEq See Rx Instructions .Route 06/05/24 06/27/24 Rx tablet,extended release(part/cryst) .COMPLEX #90 tabs losartan 25 mg tablet See Rx Instructions .Route 06/12/24 06/27/24 Rx .COMPLEX #30 tabs benzonatate 100 mg capsule 100 mg PO TID 06/27/24 06/27/24 History Allergies Allergy/AdvReac Type Severity Reaction Status Date / Time epinephrine Allergy Unknown unknown Verified 02/29/24 10:03 Penicillins Allergy Unknown unknown Verified 02/29/24 10:03 Vital Signs Vital Signs - 24 hr 06/26/24 23:58 06/27/24 00:08 06/27/24 00:15 Temperature 98.2 F Pulse Rate 50 L 50 L 50 L Respiratory Rate 22 H 17 18 Blood Pressure 155/94 H Pulse Oximetry 97 96 Oxygen Delivery Room Air 06/27/24 00:18 06/27/24 00:41 06/27/24 00:46 Temperature Pulse Rate 53 L 81 81 Respiratory Rate 18 21 H 21 H Blood Pressure 219/60 H 220/64 H 213/66 H Pulse Oximetry 97 98 97 Oxygen Delivery 06/27/24 00:56 06/27/24 01:00 06/27/24 01:01 Temperature Pulse Rate 77 75 70 Respiratory Rate 17 22 H Blood Pressure 213/66 H 161/84 H Pulse Oximetry 96 99 Oxygen Delivery 06/27/24 01:02 06/27/24 01:05 06/27/24 01:21 Temperature Pulse Rate 72 74 83 Respiratory Rate 22 H 14 Blood Pressure 190/65 H 168/105 H Pulse Oximetry 97 99 93 Oxygen Delivery 06/27/24 01:56 06/27/24 02:01 06/27/24 02:06 Temperature Pulse Rate 69 67 65 Respiratory Rate 16 18 22 H Blood Pressure 173/58 H 179/70 H 171/62 H Pulse Oximetry 94 93 93 Oxygen Delivery 06/27/24 02:21 06/27/24 02:31 06/27/24 02:32 Temperature Pulse Rate 66 68 72 Respiratory Rate 15 14 19 Blood Pressure 170/67 H 168/81 H Pulse Oximetry 93 94 93 Oxygen Delivery 06/27/24 03:07 06/27/24 03:11 06/27/24 03:15 Temperature Pulse Rate 70 69 69 Respiratory Rate 19 16 13 Blood Pressure 172/90 H Pulse Oximetry 96 95 95 Oxygen Delivery 06/27/24 03:16 06/27/24 03:20 06/27/24 03:31 Temperature Pulse Rate 71 74 68 Respiratory Rate 13 22 H 15 Blood Pressure 177/65 H 139/66 145/111 H Pulse Oximetry 96 93 92 Oxygen Delivery 06/27/24 06:08 06/27/24 06:32 06/27/24 06:33 Temperature 98.1 F Pulse Rate 74 77 77 Respiratory Rate 27 H Blood Pressure 178/63 H 178/63 H Pulse Oximetry 94 Oxygen Delivery 06/27/24 06:57 06/27/24 08:00 06/27/24 08:00 Temperature Pulse Rate 78 63 Respiratory Rate Blood Pressure 167/96 H Pulse Oximetry Oxygen Delivery Room Air 06/27/24 08:00 Temperature 97.8 F Pulse Rate 63 Respiratory Rate 30 H Blood Pressure 103/46 L Pulse Oximetry 98 Oxygen Delivery Exam 2 Narrative: General: Pleasant female in no acute distress HEENT:? Pupils equal and reactive, sclerae is clear, moist oral mucosa Neck:? Supple Respiratory:? Clear to auscultation bilaterally, decreased at bases, adequate air entry Cardiac:? Irregularly irregular, rate controlled Abdomen:? Soft, nontender, nondistended, normoactive bowel sounds Extremities:? No edema, palpable pedal pulses Neuro:? Patient is awake, alert, oriented, nonfocal, able to answer questions and follow simple commands Skin:? Warm and dry Psych:? Normal mentation and affect Results Labs 06/27/24 00:14 06/27/24 00:14 Labs: Short CBC 06/27/24 Range/Units 00:14 WBC 9.8 (4.5-10.0) K/mm3 Hgb 13.0 (12.0-15.0) g/dL Hct 37.9 (37.0-47.0) % Plt Count 206 (150-375) k/mm3 BMP 06/27/24 00:14 Sodium 134 L Potassium 4.1 Chloride 101 Carbon Dioxide 27 BUN 32 H Creatinine 1.15 H Glucose 140 H Calcium 9.5 Cardiac Enzymes 06/27/24 06/27/24 06/27/24 Range/Units 00:14 03:33 08:49 Troponin I 0.017 0.018 0.022 D (0.000-0.034) ng/mL Liver Function 06/27/24 Range/Units 00:14 Total Bilirubin 0.8 (0.2-1.3) mg/dL AST 29 (14-36) U/L ALT 28 (6-35) U/L Alkaline Phosphatase 52 (38-126) U/L Albumin 3.7 (3.5-5.1) g/dL Quality VTE Prophylaxis VTE prophylaxis: mechanical ordered and pharmacologic ordered Hospitalist MIPS Advance Care Plan I have confirmed that the patient's Advanced Care Plan is present, code status is documented, or surrogate decision maker is listed in patient medical record.: Yes Medication Reconciliation I have utilized all available resources to obtain, update and review the patients current medications (includes all prescriptions, OTC, herbals, cannabis, and nutritional supplements).: Yes
--- NOTE | 2024-06-27 10:50 | P.CONCA_ITS ---
Assessment and Plan Assessment and plan (1) Bradycardia: Code(s): R00.1 - Bradycardia, unspecified Status: Acute Assessment and Plan: On EMS arrival, patient was reportedly bradycardic with heart rates in the 30s and 40s and had a few brief pauses. EKG in the ED shows sinus bradycardia. In the ED, when going to the CT scanner, she was noted to have an episode of bradycardia down to the 20s. Given glucagon. Was started on low-dose Dopamine, which has since been weaned off now. Telemetry since then shows sinus rhythm with frequent PACs. I do not see any evidence of high grade blocks. Took last dose of Carvedilol on evening of 06/26. Hold further AV dulce maria blocking agents. No strong indication for beta cosmo therapy in this patient (was on Coreg for hypertension). Echocardiogram pending. Will allow washout of Coreg. If patient has issues with symptomatic bradycardia despite washout of beta cosmo, then would need to be considered for pacemaker -- we do not have that capability this week at [place], therefore, patient would need to be transferred to a tertiary care center. (2) Syncope: Qualifiers: Syncope type: unspecified Qualified Code(s): R55 - Syncope and collapse Code(s): R55 - Syncope and collapse Status: Acute Assessment and Plan: As above. (3) HTN (hypertension): Qualifiers: Hypertension type: essential hypertension Qualified Code(s): I10 - Essential (primary) hypertension Code(s): I10 - Essential (primary) hypertension Status: Acute Assessment and Plan: Stable. Avoid AV dulce maria blocking agents. Continue Lasix, Losartan. Can increase dose of Losartan if needed for additional blood pressure control. (4) HLD (hyperlipidemia): Qualifiers: Hyperlipidemia type: mixed hyperlipidemia Qualified Code(s): E78.2 - Mixed hyperlipidemia Code(s): E78.5 - Hyperlipidemia, unspecified Status: Acute Assessment and Plan: Continue statin. Plan Recommendations and plan discussed with ICU Physician. History of Present Illness History of Present Illness Consult date/time: 06/27/24 10:50 Requesting physician: Ruby Hall DO Consult reason: Other (Syncope, bradycardia ) Reason For Visit: Bradycardia, Syncope Narrative: We are consulted for bradycardia, syncope. Brianna is an 84 year old female with hypertension, hyperlipidemia, GERD, CKD. Patient presented to [place] after having a syncopal event. She states she woke up and was trying to get out of bed when she got lightheaded and dizzy and subsequently lost consciousness for a few seconds. Had a prior syncopal event a few months ago when she was ill with the flu. No prior cardiac history. 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 On Carvedilol for hypertension. Took last dose of Coreg on evening of 06/26. On EMS arrival, patient was reportedly bradycardic with heart rates in the 30s and 40s and had a few brief pauses. EKG in the ED shows sinus bradycardia. In the ED, when going to the CT scanner, she was noted to have an episode of bradycardia down to the 20s. Given glucagon. Was started on low-dose Dopamine, which has since been weaned off now. She is currently feeling well. Hemodynamically stable. Telemetry with sinus rhythm with frequent PACs. Troponins are negative. Review of Systems 2 Review of Systems: All systems reviewed & are unremarkable except as noted in HPI and below (HPI) [facility] Past Medical History Medical History Essential hypertension Vitamin D deficiency Chronic obstructive pulmonary disease, unspecified CKD (chronic kidney disease) stage 3, GFR 30-59 ml/min Right rotator cuff tear Pre-diabetes Body mass index [BMI] 30.0-30.9, adult (07/20/17) Bullous pemphigoid Other dorsalgia Other hyperlipidemia Pain in left may Mammogram declined Osteoporosis Surgical History Surgical History Status post cataract extraction of both eyes with insertion of intraocular lens S/P insertion of spinal cord stimulator Family History Family History Father Family history of malignant neoplasm, Onset Age: 67 Mother Family history of malignant neoplasm, Onset Age: 67 Daughter Multiple sclerosis Son Diabetes mellitus Social History Social History Social History: The patient reports that she has been since 2013. She moved to [facility] after her . She has a daughter and a son. She is a lifelong nonsmoker and does not drink alcohol or use illicit substances. Code status: Patient reports she does not have advanced directives and does not think that she would want CPR but wants to discuss this with her family. Surrogate decision maker: Victorino Vargas (son) Smoking status: Never smoker Second hand tobacco smoke exposure: No Alcohol intake: never Substance use: never Substance use type: does not use Do You Feel Safe in your Home?: Yes Lack of Transportation: No Lack of Food: Never True Current Housing: I Have Housing Concerned About Future Housing: No Difficulty Paying Gas/Electric Bills: No Difficulty Paying for Meds: No Currently Unemployed: No Education: Decline to Answer Difficulty w/ Childcare or Family Care: No Gender identity (if verbalized by the patient): Female Spiritual care concerns: No Agree to blood products: Yes Meds Home Medications and Allergies Home Medications ?Medication ?Instructions ?Recorded ?Confirmed ?Type niacin 500 mg tablet 500 mg PO TID 08/07/19 06/27/24 History atorvastatin 40 mg tablet See Rx Instructions .Route 01/31/24 06/27/24 Rx .COMPLEX #90 tabs carvedilol 12.5 mg tablet See Rx Instructions .Route 01/31/24 06/27/24 Rx .COMPLEX #180 tabs furosemide 40 mg tablet See Rx Instructions .Route 03/27/24 06/27/24 Rx .COMPLEX #90 tabs meloxicam 15 mg tablet See Rx Instructions .Route 03/27/24 06/27/24 Rx .COMPLEX #90 tabs omeprazole 40 mg capsule,delayed See Rx Instructions .Route 04/17/24 06/27/24 Rx release .COMPLEX #90 caps calcium 500 mg (as 1 tablet PO TID #270 tabs 05/11/24 06/27/24 Rx carbonate)-vitamin D3 5 mcg (200 unit) tablet (Oyster Shell Calcium-Vitamin D3) ibandronate 150 mg tablet See Rx Instructions .Route 05/29/24 06/27/24 Rx .COMPLEX #3 tabs potassium chloride 20 mEq See Rx Instructions .Route 06/05/24 06/27/24 Rx tablet,extended release(part/cryst) .COMPLEX #90 tabs losartan 25 mg tablet See Rx Instructions .Route 06/12/24 06/27/24 Rx .COMPLEX #30 tabs benzonatate 100 mg capsule 100 mg PO TID 06/27/24 06/27/24 History Allergies Allergy/AdvReac Type Severity Reaction Status Date / Time epinephrine Allergy Unknown unknown Verified 02/29/24 10:03 Penicillins Allergy Unknown unknown Verified 02/29/24 10:03 Vital Signs Vital Signs - 24 hr 06/26/24 23:58 06/27/24 00:08 06/27/24 00:15 Temperature 36.8 C Pulse Rate 50 L 50 L 50 L Respiratory Rate 22 H 17 18 Blood Pressure 155/94 H Pulse Oximetry 97 96 Oxygen Delivery Room Air 06/27/24 00:18 06/27/24 00:41 06/27/24 00:46 Temperature Pulse Rate 53 L 81 81 Respiratory Rate 18 21 H 21 H Blood Pressure 219/60 H 220/64 H 213/66 H Pulse Oximetry 97 98 97 Oxygen Delivery 06/27/24 00:56 06/27/24 01:00 06/27/24 01:01 Temperature Pulse Rate 77 75 70 Respiratory Rate 17 22 H Blood Pressure 213/66 H 161/84 H Pulse Oximetry 96 99 Oxygen Delivery 06/27/24 01:02 06/27/24 01:05 06/27/24 01:21 Temperature Pulse Rate 72 74 83 Respiratory Rate 22 H 14 Blood Pressure 190/65 H 168/105 H Pulse Oximetry 97 99 93 Oxygen Delivery 06/27/24 01:56 06/27/24 02:01 06/27/24 02:06 Temperature Pulse Rate 69 67 65 Respiratory Rate 16 18 22 H Blood Pressure 173/58 H 179/70 H 171/62 H Pulse Oximetry 94 93 93 Oxygen Delivery 06/27/24 02:21 06/27/24 02:31 06/27/24 02:32 Temperature Pulse Rate 66 68 72 Respiratory Rate 15 14 19 Blood Pressure 170/67 H 168/81 H Pulse Oximetry 93 94 93 Oxygen Delivery 06/27/24 03:07 06/27/24 03:11 06/27/24 03:15 Temperature Pulse Rate 70 69 69 Respiratory Rate 19 16 13 Blood Pressure 172/90 H Pulse Oximetry 96 95 95 Oxygen Delivery 06/27/24 03:16 06/27/24 03:20 06/27/24 03:31 Temperature Pulse Rate 71 74 68 Respiratory Rate 13 22 H 15 Blood Pressure 177/65 H 139/66 145/111 H Pulse Oximetry 96 93 92 Oxygen Delivery 06/27/24 06:08 06/27/24 06:32 06/27/24 06:33 Temperature 36.7 C Pulse Rate 74 77 77 Respiratory Rate 27 H Blood Pressure 178/63 H 178/63 H Pulse Oximetry 94 Oxygen Delivery 06/27/24 06:57 06/27/24 08:00 06/27/24 08:00 Temperature Pulse Rate 78 63 Respiratory Rate Blood Pressure 167/96 H Pulse Oximetry Oxygen Delivery Room Air 06/27/24 08:00 06/27/24 10:00 06/27/24 10:00 Temperature 36.6 C Pulse Rate 63 63 63 Respiratory Rate 30 H 17 Blood Pressure 103/46 L 149/60 H Pulse Oximetry 98 96 Oxygen Delivery 06/27/24 10:37 Temperature Pulse Rate 62 Respiratory Rate 20 Blood Pressure Pulse Oximetry 97 Oxygen Delivery Room Air Exam 2 Const: General: comfortable and no acute distress HENMT: Mouth: Yes moist mucous membranes Eyes: General: appearance normal, both eyes and all related structures S clera: sclerae normal Resp: Effort & Inspection: normal respiratory effort Cardio: Rate: regular rate Rhythm: regular rhythm Heart sounds: no murmurs Skin: General skin exam: normal color Neuro: Speech: normal speech Psych: Mental Status: mental status grossly normal Affect: normal affect Results Labs and Meds 06/27/24 00:14 06/27/24 00:14 Lab results: Cardiac Enzymes 06/27/24 06/27/24 06/27/24 Range/Units 00:14 03:33 08:49 AST 29 (14-36) U/L Troponin I 0.017 0.018 0.022 D (0.000-0.034) ng/mL Coagulation 06/27/24 Range/Units 00:14 PT 13.2 (11.1-14.7) Seconds APTT 26.8 (22.3-36.8) Seconds CBC 06/27/24 Range/Units 00:14 WBC 9.8 (4.5-10.0) K/mm3 RBC 4.02 L (4.2-5.4) M/mm3 Hgb 13.0 (12.0-15.0) g/dL Hct 37.9 (37.0-47.0) % Plt Count 206 (150-375) k/mm3 Lymph # (Auto) 2.31 (0.9-3.2) K/mm3 [place] # (Auto) 0.9 H (0.1-0.6) K/mm3 Eos # (Auto) 0.2 (0-0.3) K/mm3 Baso # (Auto) 0.0 (0.0-0.1) K/mm3 Comprehensive Metabolic Panel 06/27/24 Range/Units 00:14 Sodium 134 L (137-145) mmol/L Potassium 4.1 (3.4-5.0) mmol/L Chloride 101 (98-107) mmol/L Carbon Dioxide 27 (22-30) mmol/L BUN 32 H (7-17) mg/dL Creatinine 1.15 H (0.7-1.0) mg/dL Glucose 140 H (65-110) mg/dL Calcium 9.5 (8.4-10.2) mg/dL AST 29 (14-36) U/L ALT 28 (6-35) U/L Alkaline Phosphatase 52 (38-126) U/L Total Protein 7.0 (6.3-8.2) g/dL Albumin 3.7 (3.5-5.1) g/dL Intake and Output 06/26/24 06/27/24 06/27/24 23:59 07:59 15:59 Intake Total 1029.4 Balance 1029.4 Intake: IV 1029.4 DOPamine 400 MG/D5W 250 ML 400 29.4 mg In 250 ml @ 2 MCG/KG/MIN 5. 048 mls/hr IV CONT .Q24H STA Rx #:[id number] Sodium Chloride 0.9% IV 1,000 1000 ml @ 999 mls/hr IV CONT .Q1H1M STA Rx#:[id number] Patient Weight 06/27/24 23:59 Weight 67.3 kg
[2024-06-27] MEDS: LOSARTAN POTASSIUM 25 MG TABLET PO (12:03)
[2024-06-27 12:31] LABS: MRSA (PCR) NOT DETECTED (NOT DETECTE)
[2024-06-27] MEDS: ENOXAPARIN 40 MG/0.4 ML SYRINGE SUB-Q (13:38)
[2024-06-27] MEDS: ACETAMINOPHEN 325 MG TABLET 650 MG PO (18:38)
[2024-06-27] MEDS: ATORVASTATIN 40 MG TABLET PO (20:55)
--- NOTE | 2024-06-27 22:32 | PC.NURSE ---
This patient, Brianna Martinez, was received from [ICU 9 ] on 06/27/24 at 2232. Patient/family oriented to unit policies and routines
--- NOTE | 2024-06-27 22:37 | PC.NURSE ---
Patient transferred to room 202. All belongings gathered. Report given to Maris BUSH.
[2024-06-28] VITALS (16 sets, daily range): BP systolic 144–180; BP diastolic 42–61; PULSE 62–82; RESP 14–22; TEMP 36.4–36.8; O2SAT 93–97
[2024-06-28 05:08] LABS: Basophils Percent Auto 0.3 % (0.2-1.2); Eosinophils Absolute Auto 0.2 K/mm3 (0-0.3); Eosinophils Percent Auto 2.3 % (0-4.4); Hematocrit 39.6 % (37.0-47.0); Hemoglobin 12.9 g/dL (12.0-15.0); Immature Granulocyte Absolute 0.03 K/mm3 (0.00-0.031); Immature Granulocyte Percent A 0.3 % (0-0.5); Lymphocytes Absolute Auto 2.61 K/mm3 (0.9-3.2); Lymphocytes Percent Auto 28.5 % (18.3-44.2); Mean Corpuscular HGB Conc 32.6 g/dl (32-36); Mean Corpuscular Hemoglobin 32.2 pg (26-34); Mean Corpuscular Volume 98.8 fl (80-100); Monocytes Absolute Auto 0.8 K/mm3 (0.1-0.6); Monocytes Percent Auto 9.1 % (2.6-8.5); Neutrophils Absolute Auto 5.5 K/mm3 (1.3-6.7); Neutrophils Percent Auto 59.5 % (45.5-73.1); Platelet Count Result 198 k/mm3 (150-375); Red Blood Count 4.01 M/mm3 (4.2-5.4); Red Cell Distribution Width 13.7 % (11.5-14.5); White Blood Count 9.2 K/mm3 (4.5-10.0)
[2024-06-28] MEDS: ACETAMINOPHEN 325 MG TABLET 650 MG PO ×2 (05:20→17:12)
[2024-06-28 05:22] LABS: Potassium 4.3 mmol/L (3.4-5.0)
[2024-06-28 05:28] LABS: Alanine Aminotransferase 25 U/L (6-35); Albumin Level 3.4 g/dL (3.5-5.1); Alkaline Phosphatase 43 U/L (38-126); Anion Gap 4 mmol/L (4-12); Aspartate Amino Transferase 29 U/L (14-36); Bilirubin,Total 1.4 mg/dL (0.2-1.3); Blood Urea Nitrogen 33 mg/dL (7-17); Calcium 9.8 mg/dL (8.4-10.2); Carbon Dioxide 23 mmol/L (22-30); Chloride 109 mmol/L (98-107); Estimated Glomerular Filt Rate 42; Glucose 96 mg/dL (65-110); Lipase 80 U/L (23-300); Magnesium 2.2 mg/dL (1.6-2.3); Potassium 4.3 mmol/L (3.4-5.0); Sodium 136 mmol/L (137-145)
[2024-06-28 05:32] LABS: INR 1.1; Prothrombin Time 14.1 Seconds (11.1-14.7)
[2024-06-28 05:33] LABS: Partial Thromboplastin Time 34.7 Seconds (22.3-36.8)
[2024-06-28] MEDS: DICLOFENAC SODIUM 1% 100 GM GEL (*BKC) 1 APPLIC TOPICAL ×4 (09:03→21:03)
[2024-06-28] MEDS: PANTOPRAZOLE 40 MG TABLET PO ×2 (09:04→21:03)
[2024-06-28] MEDS: LOSARTAN POTASSIUM 25 MG TABLET PO (09:04)
[2024-06-28] MEDS: POTASSIUM CHLORIDE 20 MEQ ER TABLET PO (09:04)
[2024-06-28] MEDS: ENOXAPARIN 40 MG/0.4 ML SYRINGE SUB-Q (09:04)
[2024-06-28] MEDS: CALCIUM/VITAMIN D 500 MG/5 MCG (200 I.U.) TABLET PO ×3 (09:04→17:12)
[2024-06-28] MEDS: NIACIN SA 500 MG TABLET PO (09:35)
--- NOTE | 2024-06-28 09:38 | P.PNIM_ITS ---
Progress Note: A&P Assessment and Plan (1) Bradycardia: Code(s): R00.1 - Bradycardia, unspecified Status: Acute (2) HLD (hyperlipidemia): Qualifiers: Hyperlipidemia type: mixed hyperlipidemia Qualified Code(s): E78.2 - Mixed hyperlipidemia Code(s): E78.5 - Hyperlipidemia, unspecified Status: Acute (3) CKD (chronic kidney disease) stage 3, GFR 30-59 ml/min: Code(s): N18.30 - Chronic kidney disease, stage 3 unspecified Status: Acute (4) Essential hypertension: Code(s): I10 - Essential (primary) hypertension Status: Acute Plan (1) Symptomatic bradycardia: Code(s): R00.1 - Bradycardia, unspecified Status: Acute Assessment and Plan: Patient presented with syncope, symptomatic bradycardia with heart rates in the 20s to 40s with brief pauses. EKG did show sinus bradycardia -Patient status post glucagon, also was started on dopamine infusion which is currently off -likely related to carvedilol which she took on 06/26/2024 in the evening -will add carvedilol washout, patient been given IV fluids -avoid any AV dulce maria blocking agents -appreciate cardiology evaluating the patient, if she continues to have bradycardia despite washout of beta-cosmo, would consider pacemaker now HR 63-71 over the night, patient still has intermittent lightheadedness (2) HTN (hypertension): Qualifiers: Hypertension type: essential hypertension Qualified Code(s): I10 - Essential (primary) hypertension Code(s): I10 - Essential (primary) hypertension Status: Acute Assessment and Plan: Blood pressures have been stable to high at times -will restart losartan, -avoid AV dulce maria blockers (3) CKD (chronic kidney disease) stage 3, GFR 30-59 ml/min: Code(s): N18.30 - Chronic kidney disease, stage 3 unspecified Status: Acute Assessment and Plan: Patient with CKD, creatinine close to baseline -continue to monitor urine output, renal function electrolyte (4) HLD (hyperlipidemia): Qualifiers: Hyperlipidemia type: mixed hyperlipidemia Qualified Code(s): E78.2 - Mixed hyperlipidemia Code(s): E78.5 - Hyperlipidemia, unspecified Status: Acute Assessment and Plan: Continue atorvastatin Plan DVT prophylaxis: SCDs, Lovenox Stress ulcer prophylaxis: Protonix which she takes at home Nutrition: Heart healthy diet Code Status: Full code Subjective Date/time seen: 06/28/24 09:38 Interval history: I saw exam patient today, patient still has intermittent lightheadedness, denies palpitation, chest pain, shortness of breath. Blood pressure stable now. Most time heart rate above 60 Exam Narrative: General: Pleasant female in no acute distress HEENT:? Pupils equal and reactive, sclerae is clear, moist oral mucosa Neck:? Supple Respiratory:? Clear to auscultation bilaterally, decreased at bases, adequate air entry Cardiac:? Irregularly irregular, rate controlled Abdomen:? Soft, nontender, nondistended, normoactive bowel sounds Extremities:? No edema, palpable pedal pulses Neuro:? Patient is awake, alert, oriented, nonfocal, able to answer questions and follow simple commands Skin:? Warm and dry Psych:? Normal mentation and affect Objective Data Vital Signs Vital Signs: Vital Signs - 24 hr 06/27/24 10:00 06/27/24 10:00 06/27/24 10:37 Temperature Pulse Rate 63 63 62 Respiratory Rate 17 20 Blood Pressure 149/60 H Pulse Oximetry 96 97 Oxygen Delivery Room Air 06/27/24 12:00 06/27/24 12:00 06/27/24 12:00 Temperature 98.5 F Pulse Rate 64 64 64 Respiratory Rate 15 15 Blood Pressure 174/79 H Pulse Oximetry 96 96 Oxygen Delivery Room Air 06/27/24 14:00 06/27/24 14:00 06/27/24 16:00 Temperature 99.8 F H Pulse Rate 69 66 67 Respiratory Rate 24 H 24 H Blood Pressure 137/49 L Pulse Oximetry 95 97 Oxygen Delivery Room Air 06/27/24 16:00 06/27/24 16:00 06/27/24 18:00 Temperature 99.9 F H Pulse Rate 67 67 71 Respiratory Rate 20 Blood Pressure 139/50 L Pulse Oximetry 97 Oxygen Delivery 06/27/24 18:00 06/27/24 20:00 06/27/24 20:00 Temperature 100.1 F H Pulse Rate 64 60 57 L Respiratory Rate 15 20 Blood Pressure 143/40 H Pulse Oximetry 96 94 Oxygen Delivery Room Air 06/27/24 20:53 06/27/24 22:55 06/27/24 23:57 Temperature 99.4 F 97.9 F Pulse Rate 59 L 53 L Respiratory Rate 21 H 20 Blood Pressure 147/54 H 157/52 H Pulse Oximetry 93 93 93 Oxygen Delivery Room Air 06/28/24 00:00 06/28/24 00:00 06/28/24 02:00 Temperature Pulse Rate 63 63 68 Respiratory Rate 20 Blood Pressure Pulse Oximetry 93 Oxygen Delivery Room Air 06/28/24 04:00 06/28/24 04:00 06/28/24 04:58 Temperature 98.0 F Pulse Rate 65 65 71 Respiratory Rate 20 16 Blood Pressure 180/49 H Pulse Oximetry 93 95 Oxygen Delivery Room Air 06/28/24 06:00 06/28/24 07:26 Temperature 98.0 F Pulse Rate 62 71 Respiratory Rate 16 Blood Pressure 150/59 H Pulse Oximetry 96 Oxygen Delivery Intake/Output Intake/Output: Intake & Output 06/25/24 06/26/24 06/27/24 06/28/24 23:59 23:59 23:59 23:59 Intake Total 1849.4 240 Output Total 1000 300 Balance 849.4 -60 Meds/Results Medications: Active Medications Generic Name Dose Route Start Last Admin Trade Name Freq PRN Reason Stop Dose Admin Acetaminophen 650 mg 06/27/24 02:34 06/28/24 05:20 Acetaminophen 325 Mg Tablet PO 650 mg Q4H PRN Administration Mild Pain (1-3) or Fever Atorvastatin Calcium 40 mg 06/27/24 21:00 06/27/24 20:55 Atorvastatin 40 Mg Tablet PO 40 mg HS [facility] Administration Calcium Carbonate 500 mg 06/27/24 09:00 06/28/24 09:04 Calcium/Vitamin D 500 Mg/5 Mcg (200 I.U.) Tablet PO 500 mg TID [facility] Administration Diclofenac Sodium 1 applic 06/27/24 09:00 06/28/24 09:03 Diclofenac Sodium 1% 100 Gm Gel (*Bkc) TOPICAL 1 applic QID [facility] Administration Enoxaparin Sodium 40 mg 06/28/24 09:00 06/28/24 09:04 Enoxaparin 40 Mg/0.4 Ml Syringe SUB-Q 40 mg DAILY [facility] Administration Furosemide 40 mg 06/27/24 09:00 Furosemide 40 Mg Tablet PO DAILY [facility] Losartan Potassium 25 mg 06/27/24 09:00 06/28/24 09:04 Losartan Potassium 25 Mg Tablet PO 25 mg DAILY [facility] Administration Meloxicam 15 mg 06/27/24 09:00 Meloxicam 7.5 Mg Tablet PO QAM [facility] Niacin 500 mg 06/27/24 09:00 06/28/24 09:35 Niacin Sa 500 Mg Tablet PO 500 mg TID [facility] Administration Ondansetron HCl 4 mg 06/27/24 02:34 06/27/24 07:01 Ondansetron Inj 4 Mg/2 Ml Vial IV PUSH 4 mg Q4H PRN Administration Nausea Pantoprazole Sodium 40 mg 06/27/24 09:00 06/28/24 09:04 Pantoprazole 40 Mg Tablet PO 40 mg Q12HR [facility] Administration Perflutren Lipid Microsphere 0 ml 06/27/24 08:41 Perflutren Lipid Microspheres 1.5 Ml Vial Diluted To 10 Ml Total Volume IV PUSH 06/30/24 08:41 ONCE PRN adequate visualization Protocol Potassium Chloride 20 meq 06/27/24 09:00 06/28/24 09:04 Potassium Chloride 20 Meq Er Tablet PO 20 meq DAILY [facility] Administration Radiology Results: ITS Impressions Head CT 06/27/24 05:12 Impression: No significant abnormality seen. Cervical Spine CT 06/27/24 05:13 Impression: No acute fracture. Degenerative spondylosis, as above. Knee X-Ray 06/27/24 05:13 Impression: Unremarkable left knee radiographs. Chest X-Ray 06/27/24 05:18 Impression: Possible minimal bibasilar pulmonary edema with minimal central congestive change. Stable cardiomegaly. Carotid Doppler Study 06/27/24 15:15 IMPRESSION: 1. Less than 50% stenosis in the right internal carotid artery by sonographic criteria. 2. Less than 50% stenosis in the left internal carotid artery by sonographic criteria. Labs Labs: Laboratory Results - last 24 hr 06/27/24 06/28/24 06/28/24 10:54 04:53 04:53 WBC 9.2 RBC 4.01 L Hgb 12.9 Hct 39.6 MCV 98.8 MCH 32.2 MCHC 32.6 RDW 13.7 Plt Count 198 MPV 10.0 Immature Gran % (Auto) 0.3 Neut % (Auto) 59.5 Lymph % (Auto) 28.5 [place] % (Auto) 9.1 H Eos % (Auto) 2.3 Baso % (Auto) 0.3 Lymph # (Auto) 2.61 [place] # (Auto) 0.8 H Eos # (Auto) 0.2 Baso # (Auto) 0.0 Abs Immat Gran (auto) 0.03 Absolute Neuts (auto) 5.5 Absolute Nucleated RBC 0.000 Nucleated RBC % 0.0 PT 14.1 INR 1.1 APTT 34.7 Sodium 136 L Potassium 4.3 4.3 Chloride 109 H Carbon Dioxide 23 Anion Gap 4 BUN 33 H Creatinine 1.22 H Estim Creat Clear Calc Not Reportable Estimated GFR 42 L Glucose 96 Calcium 9.8 Magnesium 2.2 Total Bilirubin 1.4 H AST 29 ALT 25 Alkaline Phosphatase 43 Total Protein 6.0 L Albumin 3.4 L Lipase 80 Nasal MRSA (PCR) Not detected
--- NOTE | 2024-06-28 14:20 | PM.PNCARD ---
Progress Note: A&P Assessment and Plan (1) Bradycardia: Code(s): R00.1 - Bradycardia, unspecified Status: Acute Assessment and Plan: On EMS arrival, patient was reportedly bradycardic with heart rates in the 30s and 40s and had a few brief pauses. EKG in the ED shows sinus bradycardia. In the ED, when going to the CT scanner, she was noted to have an episode of bradycardia down to the 20s. Given glucagon. Was started on low-dose Dopamine, which has since been weaned off now. Telemetry since then shows sinus rhythm with frequent PACs. I do not see any evidence of high grade blocks. Took last dose of Carvedilol on evening of 06/26. Hold further AV dulce maria blocking agents. No strong indication for beta cosmo therapy in this patient (was on Coreg for hypertension). Echocardiogram with normal LVEF. Will allow washout of Coreg. If patient has issues with symptomatic bradycardia despite washout of beta cosmo, then would need to be considered for pacemaker -- we do not have that capability this week at [facility], therefore, patient would need to be transferred to a tertiary care center. (2) Syncope: Qualifiers: Syncope type: unspecified Qualified Code(s): R55 - Syncope and collapse Code(s): R55 - Syncope and collapse Status: Acute Assessment and Plan: As above. (3) Essential hypertension: Code(s): I10 - Essential (primary) hypertension Status: Acute Assessment and Plan: Stable. Avoid AV dulce maria blocking agents. Continue Lasix, Losartan. Can increase dose of Losartan if needed for additional blood pressure control. (4) HLD (hyperlipidemia): Qualifiers: Hyperlipidemia type: mixed hyperlipidemia Qualified Code(s): E78.2 - Mixed hyperlipidemia Code(s): E78.5 - Hyperlipidemia, unspecified Status: Acute Assessment and Plan: Continue statin. Subjective Date/time seen: 06/28/24 14:20 Interval history: Reason for visit: Bradycardia, syncope HPI: We are consulted for bradycardia, syncope. Brianna is an 84 year old female with hypertension, hyperlipidemia, GERD, CKD. Patient presented to [facility] after having a syncopal event. She states she woke up and was trying to get out of bed when she got lightheaded and dizzy and subsequently lost consciousness for a few seconds. Had a prior syncopal event a few months ago when she was ill with the flu. No prior cardiac history. Has not seen a bpm architect in the past. On Carvedilol for hypertension. Took last dose of Coreg on evening of 06/26. On EMS arrival, patient was reportedly bradycardic with heart rates in the 30s and 40s and had a few brief pauses. EKG in the ED shows sinus bradycardia. In the ED, when going to the CT scanner, she was noted to have an episode of bradycardia down to the 20s. Given glucagon. Was started on low-dose Dopamine, which has since been weaned off now. She is currently feeling well. Hemodynamically stable. Telemetry with sinus rhythm with frequent PACs. Troponins are negative. Date of service 06/28: No lightheadedness or dizziness. Has not gotten out of bed today. Tele with bradycardia with heart rates into the 30s overnight during sleeping hours. No evidence of high grade block or other significant bradyarrhythmia. She endorses snoring at night, but has not been tested for sleep apnea. Review of Systems Review of Systems: All systems reviewed & are unremarkable except as noted in HPI and below (HPI) Exam Const: General: no acute distress HENMT: Mouth: Yes moist mucous membranes Eyes: General: appearance normal, both eyes and all related structures Sclera: sclerae normal Resp: Effort & Inspection: normal respiratory effort Cardio: Rate: regular rate Rhythm: regular rhythm Skin: General skin exam: normal color Neuro: Speech: normal speech Psych: Mental Status: mental status grossly normal Affect: normal affect Objective Data Vital Signs Vital Signs: Vital Signs - 24 hr 06/27/24 16:00 06/27/24 16:00 06/27/24 16:00 Temperature 37.7 C H Pulse Rate 67 67 67 Respiratory Rate 24 H 20 Blood Pressure 139/50 L Pulse Oximetry 97 97 Oxygen Delivery Room Air 06/27/24 18:00 06/27/24 18:00 06/27/24 20:00 Temperature 37.8 C H Pulse Rate 71 64 60 Respiratory Rate 15 20 Blood Pressure 143/40 H Pulse Oximetry 96 94 Oxygen Delivery Room Air 06/27/24 20:00 06/27/24 20:53 06/27/24 22:55 Temperature 37.4 C 36.6 C Pulse Rate 57 L 59 L 53 L Respiratory Rate 21 H 20 Blood Pressure 147/54 H 157/52 H Pulse Oximetry 93 93 Oxygen Delivery 06/27/24 23:57 06/28/24 00:00 06/28/24 00:00 Temperature Pulse Rate 63 63 Respiratory Rate 20 Blood Pressure Pulse Oximetry 93 93 Oxygen Delivery Room Air Room Air 06/28/24 02:00 06/28/24 04:00 06/28/24 04:00 Temperature Pulse Rate 68 65 65 Respiratory Rate 20 Blood Pressure Pulse Oximetry 93 Oxygen Delivery Room Air 06/28/24 04:58 06/28/24 06:00 06/28/24 07:26 Temperature 36.7 C 36.7 C Pulse Rate 71 62 71 Respiratory Rate 16 16 Blood Pressure 180/49 H 150/59 H Pulse Oximetry 95 96 Oxygen Delivery 06/28/24 08:00 06/28/24 10:00 06/28/24 11:14 Temperature 36.4 C L Pulse Rate 73 74 72 Respiratory Rate 16 Blood Pressure 144/47 H Pulse Oximetry 97 Oxygen Delivery 06/28/24 12:00 06/28/24 14:00 Temperature Pulse Rate 63 74 Respiratory Rate Blood Pressure Pulse Oximetry Oxygen Delivery Intake/Output Intake/Output: Intake & Output 06/25/24 06/26/24 06/27/24 06/28/24 23:59 23:59 23:59 23:59 Intake Total 1849.4 240 Output Total 1000 300 Balance 849.4 -60 Meds/Results Medications: Active Medications Generic Name Dose Route Start Last Admin Trade Name Freq PRN Reason Stop Dose Admin Acetaminophen 650 mg 06/27/24 02:34 06/28/24 05:20 Acetaminophen 325 Mg Tablet PO 650 mg Q4H PRN Administration Mild Pain (1-3) or Fever Atorvastatin Calcium 40 mg 06/27/24 21:00 06/27/24 20:55 Atorvastatin 40 Mg Tablet PO 40 mg HS [facility] Administration Calcium Carbonate 500 mg 06/27/24 09:00 06/28/24 12:29 Calcium/Vitamin D 500 Mg/5 Mcg (200 I.U.) Tablet PO 500 mg TID [facility] Administration Diclofenac Sodium 1 applic 06/27/24 09:00 06/28/24 12:29 Diclofenac Sodium 1% 100 Gm Gel (*Bkc) TOPICAL 1 applic QID [facility] Administration Enoxaparin Sodium 40 mg 06/28/24 09:00 06/28/24 09:04 Enoxaparin 40 Mg/0.4 Ml Syringe SUB-Q 40 mg DAILY [facility] Administration Furosemide 40 mg 06/27/24 09:00 Furosemide 40 Mg Tablet PO DAILY [facility] Losartan Potassium 25 mg 06/27/24 09:00 06/28/24 09:04 Losartan Potassium 25 Mg Tablet PO 25 mg DAILY [facility] Administration Meloxicam 15 mg 06/27/24 09:00 Meloxicam 7.5 Mg Tablet PO QAM [facility] Niacin 500 mg 06/27/24 09:00 06/28/24 12:27 Niacin Sa 500 Mg Tablet PO Not Given TID [facility] Ondansetron HCl 4 mg 06/27/24 02:34 06/27/24 07:01 Ondansetron Inj 4 Mg/2 Ml Vial IV PUSH 4 mg Q4H PRN Administration Nausea Pantoprazole Sodium 40 mg 06/27/24 09:00 06/28/24 09:04 Pantoprazole 40 Mg Tablet PO 40 mg Q12HR [facility] Administration Perflutren Lipid Microsphere 0 ml 06/27/24 08:41 Perflutren Lipid Microspheres 1.5 Ml Vial Diluted To 10 Ml Total Volume IV PUSH 06/30/24 08:41 ONCE PRN adequate visualization Protocol Potassium Chloride 20 meq 06/27/24 09:00 06/28/24 09:04 Potassium Chloride 20 Meq Er Tablet PO 20 meq DAILY [facility] Administration Radiology Results: ITS Impressions Head CT 06/27/24 05:12 Impression: No significant abnormality seen. Cervical Spine CT 06/27/24 05:13 Impression: No acute fracture. Degenerative spondylosis, as above. Knee X-Ray 06/27/24 05:13 Impression: Unremarkable left knee radiographs. Chest X-Ray 06/27/24 05:18 Impression: Possible minimal bibasilar pulmonary edema with minimal central congestive change. Stable cardiomegaly. Carotid Doppler Study 06/27/24 15:15 IMPRESSION: 1. Less than 50% stenosis in the right internal carotid artery by sonographic criteria. 2. Less than 50% stenosis in the left internal carotid artery by sonographic criteria. Labs Labs: Laboratory Results - last 24 hr 06/28/24 06/28/24 04:53 04:53 WBC 9.2 RBC 4.01 L Hgb 12.9 Hct 39.6 MCV 98.8 MCH 32.2 MCHC 32.6 RDW 13.7 Plt Count 198 MPV 10.0 Immature Gran % (Auto) 0.3 Neut % (Auto) 59.5 Lymph % (Auto) 28.5 [place] % (Auto) 9.1 H Eos % (Auto) 2.3 Baso % (Auto) 0.3 Lymph # (Auto) 2.61 [place] # (Auto) 0.8 H Eos # (Auto) 0.2 Baso # (Auto) 0.0 Abs Immat Gran (auto) 0.03 Absolute Neuts (auto) 5.5 Absolute Nucleated RBC 0.000 Nucleated RBC % 0.0 PT 14.1 INR 1.1 APTT 34.7 Sodium 136 L Potassium 4.3 4.3 Chloride 109 H Carbon Dioxide 23 Anion Gap 4 BUN 33 H Creatinine 1.22 H Estim Creat Clear Calc Not Reportable Estimated GFR 42 L Glucose 96 Calcium 9.8 Magnesium 2.2 Total Bilirubin 1.4 H AST 29 ALT 25 Alkaline Phosphatase 43 Total Protein 6.0 L Albumin 3.4 L Lipase 80
[2024-06-28] MEDS: ATORVASTATIN 40 MG TABLET PO (21:03)
[2024-06-29] VITALS (10 sets, daily range): BP systolic 153–179; BP diastolic 51–76; PULSE 62–91; RESP 16–24; TEMP 36.6–36.9; O2SAT 93–95
[2024-06-29] MEDS: ONDANSETRON INJ 4 MG/2 ML VIAL IV PUSH (06:55)
--- NOTE | 2024-06-29 09:14 | PM.IMPN ---
Progress Note: A&P Assessment and Plan (1) Bradycardia: Code(s): R00.1 - Bradycardia, unspecified Status: Acute (2) HLD (hyperlipidemia): Qualifiers: Hyperlipidemia type: mixed hyperlipidemia Qualified Code(s): E78.2 - Mixed hyperlipidemia Code(s): E78.5 - Hyperlipidemia, unspecified Status: Acute (3) CKD (chronic kidney disease) stage 3, GFR 30-59 ml/min: Code(s): N18.30 - Chronic kidney disease, stage 3 unspecified Status: Acute (4) Essential hypertension: Code(s): I10 - Essential (primary) hypertension Status: Acute Plan (1) Symptomatic bradycardia: Code(s): R00.1 - Bradycardia, unspecified Status: Acute Assessment and Plan: Patient presented with syncope, symptomatic bradycardia with heart rates in the 20s to 40s with brief pauses. 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 (2) HTN (hypertension): Qualifiers: Hypertension type: essential hypertension Qualified Code(s): I10 - Essential (primary) hypertension Code(s): I10 - Essential (primary) hypertension Status: Acute Assessment and Plan: Blood pressures have been stable to high at times restart losartan, -avoid AV dulce maria blockers (3) CKD (chronic kidney disease) stage 3, GFR 30-59 ml/min: Code(s): N18.30 - Chronic kidney disease, stage 3 unspecified Status: Acute Assessment and Plan: Patient with CKD, creatinine close to baseline -continue to monitor urine output, renal function electrolyte (4) HLD (hyperlipidemia): Qualifiers: Hyperlipidemia type: mixed hyperlipidemia Qualified Code(s): E78.2 - Mixed hyperlipidemia Code(s): E78.5 - Hyperlipidemia, unspecified Status: Acute Assessment and Plan: Continue atorvastatin Plan DVT prophylaxis: SCDs, Lovenox Stress ulcer prophylaxis: Protonix which she takes at home Nutrition: Heart healthy diet Code Status: Full code Plans to discharge patient to rehab, waiting for the appointment by insurance Subjective Date/time seen: 06/29/24 09:14 Interval history: I saw exam patient today, patient still has intermittent lightheadedness, patient has general weakness, denies palpitation, chest pain, shortness of breath. Blood pressure stable now. Most time heart rate above 60 Exam Narrative: General: Pleasant female in no acute distress HEENT:? Pupils equal and reactive, sclerae is clear, moist oral mucosa Neck:? Supple Respiratory:? Clear to auscultation bilaterally, decreased at bases, adequate air entry Cardiac:? Irregularly irregular, rate controlled Abdomen:? Soft, nontender, nondistended, normoactive bowel sounds Extremities:? No edema, palpable pedal pulses Neuro:? Patient is awake, alert, oriented, nonfocal, able to answer questions and follow simple commands Skin:? Warm and dry Psych:? Normal mentation and affect Objective Data Vital Signs Vital Signs: Vital Signs - 24 hr 06/28/24 10:00 06/28/24 11:14 06/28/24 12:00 Temperature 97.5 F L Pulse Rate 74 72 63 Respiratory Rate 16 Blood Pressure 144/47 H Pulse Oximetry 97 Oxygen Delivery 06/28/24 14:00 06/28/24 16:00 06/28/24 16:00 Temperature 98.1 F Pulse Rate 74 65 67 Respiratory Rate 16 Blood Pressure 169/61 H Pulse Oximetry 96 Oxygen Delivery 06/28/24 18:00 06/28/24 19:23 06/28/24 20:00 Temperature 98.2 F Pulse Rate 73 71 78 Respiratory Rate 14 22 H Blood Pressure 167/42 H Pulse Oximetry 94 93 Oxygen Delivery Room Air 06/28/24 20:00 06/28/24 22:00 06/29/24 00:00 Temperature Pulse Rate 78 82 77 Respiratory Rate 22 H Blood Pressure Pulse Oximetry 93 Oxygen Delivery Room Air 06/29/24 00:00 06/29/24 00:29 06/29/24 02:00 Temperature 98.0 F Pulse Rate 77 81 69 Respiratory Rate 22 H Blood Pressure 176/51 H Pulse Oximetry 93 Oxygen Delivery 06/29/24 04:00 06/29/24 04:00 06/29/24 04:04 Temperature 97.8 F Pulse Rate 80 80 91 Respiratory Rate 20 20 Blood Pressure 179/74 H Pulse Oximetry 94 94 Oxygen Delivery Room Air 06/29/24 05:56 06/29/24 08:00 Temperature 98.4 F Pulse Rate 78 82 Respiratory Rate 16 Blood Pressure 171/76 H Pulse Oximetry 94 Oxygen Delivery Intake/Output Intake/Output: Intake & Output 06/26/24 06/27/24 06/28/24 06/29/24 23:59 23:59 23:59 23:59 Intake Total 1849.4 1720 550 Output Total 1000 575 650 Balance 849.4 1145 -100 Meds/Results Medications: Active Medications Generic Name Dose Route Start Last Admin Trade Name Freq PRN Reason Stop Dose Admin Acetaminophen 650 mg 06/27/24 02:34 06/28/24 17:12 Acetaminophen 325 Mg Tablet PO 650 mg Q4H PRN Administration Mild Pain (1-3) or Fever Atorvastatin Calcium 40 mg 06/27/24 21:00 06/28/24 21:03 Atorvastatin 40 Mg Tablet PO 40 mg HS [facility] Administration Calcium Carbonate 500 mg 06/27/24 09:00 06/28/24 17:12 Calcium/Vitamin D 500 Mg/5 Mcg (200 I.U.) Tablet PO 500 mg TID [facility] Administration Diclofenac Sodium 1 applic 06/27/24 09:00 06/28/24 21:03 Diclofenac Sodium 1% 100 Gm Gel (*Bkc) TOPICAL 1 applic QID [facility] Administration Enoxaparin Sodium 40 mg 06/28/24 09:00 06/28/24 09:04 Enoxaparin 40 Mg/0.4 Ml Syringe SUB-Q 40 mg DAILY [facility] Administration Furosemide 40 mg 06/27/24 09:00 Furosemide 40 Mg Tablet PO DAILY [facility] Losartan Potassium 25 mg 06/27/24 09:00 06/28/24 09:04 Losartan Potassium 25 Mg Tablet PO 25 mg DAILY [facility] Administration Meloxicam 15 mg 06/27/24 09:00 Meloxicam 7.5 Mg Tablet PO QAM [facility] Niacin 500 mg 06/27/24 09:00 06/28/24 17:12 Niacin Sa 500 Mg Tablet PO Not Given TID [facility] Ondansetron HCl 4 mg 06/27/24 02:34 06/29/24 06:55 Ondansetron Inj 4 Mg/2 Ml Vial IV PUSH 4 mg Q4H PRN Administration Nausea Pantoprazole Sodium 40 mg 06/27/24 09:00 06/28/24 21:03 Pantoprazole 40 Mg Tablet PO 40 mg Q12HR [facility] Administration Perflutren Lipid Microsphere 0 ml 06/27/24 08:41 Perflutren Lipid Microspheres 1.5 Ml Vial Diluted To 10 Ml Total Volume IV PUSH 06/30/24 08:41 ONCE PRN adequate visualization Protocol Potassium Chloride 20 meq 06/27/24 09:00 06/28/24 09:04 Potassium Chloride 20 Meq Er Tablet PO 20 meq DAILY [facility] Administration Radiology Results: ITS Impressions Head CT 06/27/24 05:12 Impression: No significant abnormality seen. Cervical Spine CT 06/27/24 05:13 Impression: No acute fracture. Degenerative spondylosis, as above. Knee X-Ray 06/27/24 05:13 Impression: Unremarkable left knee radiographs. Chest X-Ray 06/27/24 05:18 Impression: Possible minimal bibasilar pulmonary edema with minimal central congestive change. Stable cardiomegaly. Carotid Doppler Study 06/27/24 15:15 IMPRESSION: 1. Less than 50% stenosis in the right internal carotid artery by sonographic criteria. 2. Less than 50% stenosis in the left internal carotid artery by sonographic criteria.
--- NOTE | 2024-06-29 09:18 | PM.DS ---
DS: Summary Time Spent with Patient Time attestation: Total time spent providing and/or coordinating discharge services: Discharge Plan Discharge Consulting providers: Mayra Armstrong; Rip Burnette Patient Instructions: Heart Failure (GEN) Patient Language: Romanian Discharge Medications: No Action niacin 500 mg tablet 500 mg PO TID benzonatate 100 mg capsule 100 mg PO TID atorvastatin 40 mg tablet See Rx Instructions .ROUTE .COMPLEX Qty: 90 2RF Dose Instruction: TAKE 1 TABLET BY MOUTH ONCE DAILY Rx Instructions: TAKE 1 TABLET BY MOUTH ONCE DAILY carvedilol 12.5 mg tablet See Rx Instructions .ROUTE .COMPLEX Qty: 180 2RF Dose Instruction: TAKE 1 TABLET BY MOUTH TWICE DAILY WITH MEALS Rx Instructions: TAKE 1 TABLET BY MOUTH TWICE DAILY WITH MEALS meloxicam 15 mg tablet See Rx Instructions .ROUTE .COMPLEX Qty: 90 2RF Dose Instruction: TAKE 1 TABLET BY MOUTH ONCE DAILY Rx Instructions: TAKE 1 TABLET BY MOUTH ONCE DAILY furosemide 40 mg tablet See Rx Instructions .ROUTE .COMPLEX Qty: 90 2RF Dose Instruction: TAKE 1 TABLET BY MOUTH ONCE DAILY Rx Instructions: TAKE 1 TABLET BY MOUTH ONCE DAILY omeprazole 40 mg capsule,delayed release(DR/EC) See Rx Instructions .ROUTE .COMPLEX Qty: 90 2RF Dose Instruction: TAKE 1 CAPSULE BY MOUTH DAILY Rx Instructions: TAKE 1 CAPSULE BY MOUTH DAILY calcium carbonate-vitamin D3 [Oyster Shell Calcium-Vit D3] 500 mg-5 mcg (200 unit) tablet 1 tablet PO TID Qty: 270 2RF ibandronate 150 mg tablet See Rx Instructions .ROUTE .COMPLEX Qty: 3 2RF Dose Instruction: TAKE 1 TAB BY MOUTH ON EMPTY STOMACH ONCE A MONTH REMAIN UPRIGHT.DO NOT EAT 1HR AFTER DOSE Rx Instructions: TAKE 1 TAB BY MOUTH ON EMPTY STOMACH ONCE A MONTH REMAIN UPRIGHT.DO NOT EAT 1HR AFTER DOSE potassium chloride 20 mEq tablet,ER particles/crystals See Rx Instructions .ROUTE .COMPLEX Qty: 90 2RF Dose Instruction: TAKE 1 TABLET BY MOUTH DAILY WITH FOOD Rx Instructions: TAKE 1 TABLET BY MOUTH DAILY WITH FOOD losartan 25 mg tablet See Rx Instructions .ROUTE .COMPLEX Qty: 30 5RF Dose Instruction: TAKE 1 TABLET BY MOUTH ONCE DAILY Rx Instructions: TAKE 1 TABLET BY MOUTH ONCE DAILY Date of admission: 06/27/24 07:34 Primary Care Provider: Norbert Landry Admitting Provider: Ruby Hall Attending physician on admission: Ruby Hall Condition: Stable
[2024-06-29] MEDS: POTASSIUM CHLORIDE 20 MEQ ER TABLET PO (09:42)
[2024-06-29] MEDS: LOSARTAN POTASSIUM 25 MG TABLET PO (09:42)
[2024-06-29] MEDS: PANTOPRAZOLE 40 MG TABLET PO ×2 (09:42→20:56)
[2024-06-29] MEDS: CALCIUM/VITAMIN D 500 MG/5 MCG (200 I.U.) TABLET PO ×3 (09:42→17:31)
[2024-06-29] MEDS: ACETAMINOPHEN 325 MG TABLET 650 MG PO ×2 (09:42→20:59)
[2024-06-29] MEDS: DICLOFENAC SODIUM 1% 100 GM GEL (*BKC) 1 APPLIC TOPICAL ×4 (09:43→20:56)
[2024-06-29] MEDS: ENOXAPARIN 40 MG/0.4 ML SYRINGE SUB-Q (09:43)
[2024-06-29] MEDS: METOCLOPRAMIDE HCL INJ 10 MG/2 ML VIAL IV PUSH (13:29)
--- NOTE | 2024-06-29 15:56 | P.CONUR_ITS ---
Assessment and Plan Assessment and plan (1) Urinary retention: Code(s): R33.9 - Retention of urine, unspecified Status: Acute Assessment and Plan: * Urinary retention in an 84-year-old female is usually indicative of some underlying detrusor muscle weakness complicated by immobility, attempts to void while in bed, etc. * Bladder capacity volume of just over 400 cc is encouraging and does not suggest any long-standing decompensation * Will give a dose of tamsulosin this evening and plan a voiding trial before she is discharged. Urology Consult Note HPI Date Seen: 06/29/24 Requesting Physician: Ruby Hall DO Primary Care Provider: Norbert Landry MD Consult Narrative Narrative: Brianna Martinez is a 84 year old female Who are asked to see for urinary retention. Patient was admitted with a episode of syncope in after she was found to be bradycardic or evaluation in the emergency department. In the course of this admission she developed a sense of bladder fullness but was unable to void. She had initially tried to void while in bed and then on the bedside commode. Her RN reports that her bladder scan was just over 400 cc. She is not aware of exactly what they obtained a Buenrostro catheter was placed. Was has no prior history of sense of incomplete urinary emptying. She did have an episode of urinary retention immediately following the delivery of her son many years ago. She has no history of recurrent urinary tract infection or hematuria Review of Systems 2 Review of Systems: All systems reviewed & are unremarkable except as noted in HPI and below PMFSH Past Medical History Medical History Essential hypertension Vitamin D deficiency Chronic obstructive pulmonary disease, unspecified CKD (chronic kidney disease) stage 3, GFR 30-59 ml/min Right rotator cuff tear Pre-diabetes Body mass index [BMI] 30.0-30.9, adult (07/20/17) Bullous pemphigoid Other dorsalgia Other hyperlipidemia Pain in left may Mammogram declined Osteoporosis Surgical History Surgical History Status post cataract extraction of both eyes with insertion of intraocular lens S/P insertion of spinal cord stimulator Family History Family History Father Family history of malignant neoplasm, Onset Age: 67 Mother Family history of malignant neoplasm, Onset Age: 67 Daughter Multiple sclerosis Son Diabetes mellitus Social History Social History Social History: The patient reports that she has been since 2013. She moved to [facility] after her . She has a daughter and a son. She is a lifelong nonsmoker and does not drink alcohol or use illicit substances. Code status: Patient reports she does not have advanced directives and does not think that she would want CPR but wants to discuss this with her family. Surrogate decision maker: Victorino Vargas (son) Smoking status: Never smoker Second hand tobacco smoke exposure: No Alcohol intake: never Substance use: never Substance use type: does not use Do You Feel Safe in your Home?: Yes Lack of Transportation: No Lack of Food: Never True Current Housing: I Have Housing Concerned About Future Housing: No Difficulty Paying Gas/Electric Bills: No Difficulty Paying for Meds: No Currently Unemployed: No Education: Decline to Answer Difficulty w/ Childcare or Family Care: No Gender identity (if verbalized by the patient): Female Spiritual care concerns: No Agree to blood products: Yes Meds Home Medications and Allergies Home Medications ?Medication ?Instructions ?Recorded ?Confirmed ?Type niacin 500 mg tablet 500 mg PO TID 08/07/19 06/27/24 History atorvastatin 40 mg tablet See Rx Instructions .Route 01/31/24 06/27/24 Rx .COMPLEX #90 tabs carvedilol 12.5 mg tablet See Rx Instructions .Route 01/31/24 06/27/24 Rx .COMPLEX #180 tabs furosemide 40 mg tablet See Rx Instructions .Route 03/27/24 06/27/24 Rx .COMPLEX #90 tabs meloxicam 15 mg tablet See Rx Instructions .Route 03/27/24 06/27/24 Rx .COMPLEX #90 tabs omeprazole 40 mg capsule,delayed See Rx Instructions .Route 04/17/24 06/27/24 Rx release .COMPLEX #90 caps calcium 500 mg (as 1 tablet PO TID #270 tabs 05/11/24 06/27/24 Rx carbonate)-vitamin D3 5 mcg (200 unit) tablet (Oyster Shell Calcium-Vitamin D3) ibandronate 150 mg tablet See Rx Instructions .Route 05/29/24 06/27/24 Rx .COMPLEX #3 tabs potassium chloride 20 mEq See Rx Instructions .Route 06/05/24 06/27/24 Rx tablet,extended release(part/cryst) .COMPLEX #90 tabs losartan 25 mg tablet See Rx Instructions .Route 06/12/24 06/27/24 Rx .COMPLEX #30 tabs benzonatate 100 mg capsule 100 mg PO TID 06/27/24 06/27/24 History Allergies Allergy/AdvReac Type Severity Reaction Status Date / Time epinephrine Allergy Unknown unknown Verified 02/29/24 10:03 Penicillins Allergy Unknown unknown Verified 02/29/24 10:03 Vital Signs Vital Signs - 24 hr 06/28/24 16:00 06/28/24 16:00 06/28/24 18:00 Temperature 98.1 F Pulse Rate 65 67 73 Respiratory Rate 16 Blood Pressure 169/61 H Pulse Oximetry 96 Oxygen Delivery 06/28/24 19:23 06/28/24 20:00 06/28/24 20:00 Temperature 98.2 F Pulse Rate 71 78 78 Respiratory Rate 14 22 H Blood Pressure 167/42 H Pulse Oximetry 94 93 Oxygen Delivery Room Air 06/28/24 22:00 06/29/24 00:00 06/29/24 00:00 Temperature Pulse Rate 82 77 77 Respiratory Rate 22 H Blood Pressure Pulse Oximetry 93 Oxygen Delivery Room Air 06/29/24 00:29 06/29/24 02:00 06/29/24 04:00 Temperature 98.0 F Pulse Rate 81 69 80 Respiratory Rate 22 H 20 Blood Pressure 176/51 H Pulse Oximetry 93 94 Oxygen Delivery Room Air 06/29/24 04:00 06/29/24 04:04 06/29/24 05:56 Temperature 97.8 F Pulse Rate 80 91 78 Respiratory Rate 20 Blood Pressure 179/74 H Pulse Oximetry 94 Oxygen Delivery 06/29/24 08:00 06/29/24 08:00 06/29/24 08:54 Temperature 98.4 F Pulse Rate 82 83 Respiratory Rate 16 Blood Pressure 171/76 H Pulse Oximetry 94 Oxygen Delivery Room Air 06/29/24 10:00 06/29/24 11:20 Temperature Pulse Rate 90 Respiratory Rate Blood Pressure Pulse Oximetry Oxygen Delivery Room Air Exam 2 Const: General: no acute distress Resp: Effort & Inspection: normal respiratory effort GI: Inspection: non-distended GI Palp: No abdominal tenderness and No Guarding due to palpation present (GI) Auscultation: normal bowel sounds Results Labs 06/28/24 04:53 06/28/24 04:53
[2024-06-29] MEDS: TAMSULOSIN HCL 0.4 MG CAPSULE PO (20:56)
[2024-06-29] MEDS: ATORVASTATIN 40 MG TABLET PO (20:56)
[2024-06-30 00:27] VITALS: BP 154/63; PULSE 89; RESP 24; TEMP 36.4; O2SAT 97
[2024-06-30] MEDS: ACETAMINOPHEN 325 MG TABLET 650 MG PO ×4 (04:40→20:56)
[2024-06-30] MEDS: ONDANSETRON INJ 4 MG/2 ML VIAL IV PUSH (04:43)
[2024-06-30 05:13] LABS: Potassium 4.2 mmol/L (3.4-5.0)
--- NOTE | 2024-06-30 07:27 | P.PNUR_ITS ---
Progress Note: A&P Assessment and Plan (1) Urinary retention: Code(s): R33.9 - Retention of urine, unspecified Status: Acute Assessment and Plan: * Buenrostro catheter out for another voiding trial today after a dose of tamsulosin. I have encouraged her to get up and go to the bathroom to attempt voiding. * If she fails we will replace catheter and plan outpatient urodynamics Subjective Subjective Date/Time Seen: 06/30/24 07:27 Interval history: Tolerated 1st dose of tamsulosin without dizziness or other problems Review of Systems Cardiovascular: Cardiovascular: Denies chest pain, Denies lightheadedness, Denies palpitations and Denies dyspnea Respiratory: Respiratory: Denies dyspnea Gastrointestinal: Gastrointestinal: Denies diarrhea, Denies nausea and Denies vomiting Genitourinary: Genitourinary: Denies hematuria and Denies dysuria Endocrine: Endocrine: Denies palpitations Exam Const: General: no acute distress Resp: Effort & Inspection: normal respiratory effort GI: Inspection: non-distended GI Palp: No abdominal tenderness and No Guarding due to palpation present (GI) Auscultation: normal bowel sounds Objective Data Vital Signs Vital Signs: Vital Signs - 24 hr 06/29/24 08:00 06/29/24 08:00 06/29/24 08:54 Temperature 98.4 F Pulse Rate 82 83 Respiratory Rate 16 Blood Pressure 171/76 H Pulse Oximetry 94 Oxygen Delivery Room Air 06/29/24 10:00 06/29/24 11:20 06/29/24 16:00 Temperature 98.1 F Pulse Rate 90 62 Respiratory Rate 24 H Blood Pressure 153/57 H Pulse Oximetry 95 Oxygen Delivery Room Air 06/29/24 20:00 06/30/24 00:27 Temperature 97.6 F Pulse Rate 68 89 Respiratory Rate 24 H 24 H Blood Pressure 154/63 H Pulse Oximetry 95 97 Oxygen Delivery Room Air Intake/Output Intake/Output: Intake & Output 06/27/24 06/28/24 06/29/24 06/30/24 23:59 23:59 23:59 23:59 Intake Total 1849.4 1720 1440 Output Total 5364 556 0848 2 Balance 849.4 1145 140 -2 Meds/Results Medications: Active Medications Generic Name Dose Route Start Last Admin Trade Name Freq PRN Reason Stop Dose Admin Acetaminophen 650 mg 06/27/24 02:34 06/30/24 04:40 Acetaminophen 325 Mg Tablet PO 650 mg Q4H PRN Administration Mild Pain (1-3) or Fever Atorvastatin Calcium 40 mg 06/27/24 21:00 06/29/24 20:56 Atorvastatin 40 Mg Tablet PO 40 mg HS KATERINA Administration Calcium Carbonate 500 mg 06/27/24 09:00 06/29/24 17:31 Calcium/Vitamin D 500 Mg/5 Mcg (200 I.U.) Tablet PO 500 mg TID KATERINA Administration Diclofenac Sodium 1 applic 06/27/24 09:00 06/29/24 20:56 Diclofenac Sodium 1% 100 Gm Gel (*Bkc) TOPICAL 1 applic QID [facility] Administration Enoxaparin Sodium 40 mg 06/28/24 09:00 06/29/24 09:43 Enoxaparin 40 Mg/0.4 Ml Syringe SUB-Q 40 mg DAILY KATERINA Administration Furosemide 40 mg 06/27/24 09:00 Furosemide 40 Mg Tablet PO DAILY [facility] Losartan Potassium 25 mg 06/27/24 09:00 06/29/24 09:42 Losartan Potassium 25 Mg Tablet PO 25 mg DAILY KATERINA Administration Meloxicam 15 mg 06/27/24 09:00 Meloxicam 7.5 Mg Tablet PO QAM [facility] Metoclopramide HCl 10 mg 06/29/24 11:22 06/29/24 13:29 Metoclopramide Hcl Inj 10 Mg/2 Ml Vial IV PUSH 10 mg Q6HR PRN Administration Nausea Niacin 500 mg 06/27/24 09:00 06/29/24 17:32 Niacin Sa 500 Mg Tablet PO Not Given TID [facility] Ondansetron HCl 4 mg 06/27/24 02:34 06/30/24 04:43 Ondansetron Inj 4 Mg/2 Ml Vial IV PUSH 4 mg Q4H PRN Administration Nausea Pantoprazole Sodium 40 mg 06/27/24 09:00 06/29/24 20:56 Pantoprazole 40 Mg Tablet PO 40 mg Q12HR [facility] Administration Perflutren Lipid Microsphere 0 ml 06/27/24 08:41 Perflutren Lipid Microspheres 1.5 Ml Vial Diluted To 10 Ml Total Volume IV PUSH 06/30/24 08:41 ONCE PRN adequate visualization Protocol Potassium Chloride 20 meq 06/27/24 09:00 06/29/24 09:42 Potassium Chloride 20 Meq Er Tablet PO 20 meq DAILY KATERINA Administration Tamsulosin HCl 0.4 mg 06/29/24 21:00 06/29/24 20:56 Tamsulosin Hcl 0.4 Mg Capsule PO 0.4 mg QHS KATERINA Administration Radiology Results: ITS Impressions Head CT 06/27/24 05:12 Impression: No significant abnormality seen. Cervical Spine CT 06/27/24 05:13 Impression: No acute fracture. Degenerative spondylosis, as above. Knee X-Ray 06/27/24 05:13 Impression: Unremarkable left knee radiographs. Chest X-Ray 06/27/24 05:18 Impression: Possible minimal bibasilar pulmonary edema with minimal central congestive change. Stable cardiomegaly. Carotid Doppler Study 06/27/24 15:15 IMPRESSION: 1. Less than 50% stenosis in the right internal carotid artery by sonographic criteria. 2. Less than 50% stenosis in the left internal carotid artery by sonographic criteria. Labs Labs: Laboratory Results - last 24 hr 06/30/24 04:10 Potassium 4.2
[2024-06-30 07:30] VITALS: BP 152/61; PULSE 80; RESP 18; TEMP 36.6; O2SAT 96
[2024-06-30] MEDS: CALCIUM/VITAMIN D 500 MG/5 MCG (200 I.U.) TABLET PO ×3 (09:43→16:46)
[2024-06-30] MEDS: ENOXAPARIN 40 MG/0.4 ML SYRINGE SUB-Q (09:43)
[2024-06-30] MEDS: LOSARTAN POTASSIUM 25 MG TABLET PO (09:44)
[2024-06-30] MEDS: PANTOPRAZOLE 40 MG TABLET PO ×2 (09:44→20:56)
[2024-06-30] MEDS: POTASSIUM CHLORIDE 20 MEQ ER TABLET PO (09:45)
[2024-06-30] MEDS: DICLOFENAC SODIUM 1% 100 GM GEL (*BKC) 1 APPLIC TOPICAL ×3 (09:46→20:57)
[2024-06-30 15:52] VITALS: PULSE 85; RESP 20; TEMP 36.3; O2SAT 98
--- NOTE | 2024-06-30 17:59 | P.PNIM_ITS ---
Progress Note: A&P Assessment and Plan (1) Bradycardia: Code(s): R00.1 - Bradycardia, unspecified Status: Acute (2) HLD (hyperlipidemia): Qualifiers: Hyperlipidemia type: mixed hyperlipidemia Qualified Code(s): E78.2 - Mixed hyperlipidemia Code(s): E78.5 - Hyperlipidemia, unspecified Status: Acute (3) CKD (chronic kidney disease) stage 3, GFR 30-59 ml/min: Code(s): N18.30 - Chronic kidney disease, stage 3 unspecified Status: Acute (4) Essential hypertension: Code(s): I10 - Essential (primary) hypertension Status: Acute Plan (1) Symptomatic bradycardia: Code(s): R00.1 - Bradycardia, unspecified Status: Acute Assessment and Plan: Patient presented with syncope, symptomatic bradycardia with heart rates in the 20s to 40s with brief pauses. EKG did show sinus bradycardia -Patient status post glucagon, also was started on dopamine infusion which is currently off Off Coreg and Hr wnl Chronic patient asymptomatic, flying i instructor recommends 30 day monitor as an outpatient given syncope. cardiology following (2) HTN (hypertension): Qualifiers: Hypertension type: essential hypertension Qualified Code(s): I10 - Essential (primary) hypertension Code(s): I10 - Essential (primary) hypertension Status: Acute Assessment and Plan: Blood pressures have been stable to high at times restart losartan, -avoid AV dulce maria blockers (3) CKD (chronic kidney disease) stage 3, GFR 30-59 ml/min: Code(s): N18.30 - Chronic kidney disease, stage 3 unspecified Status: Acute Assessment and Plan: Patient with CKD, creatinine close to baseline -continue to monitor urine output, renal function electrolyte (4) HLD (hyperlipidemia): Qualifiers: Hyperlipidemia type: mixed hyperlipidemia Qualified Code(s): E78.2 - Mixed hyperlipidemia Code(s): E78.5 - Hyperlipidemia, unspecified Status: Acute Assessment and Plan: Continue atorvastatin Urinary retention on Buenrostro, undergoing voiding trial today continue Tamsulosin Urology following Plan DVT prophylaxis: SCDs, Lovenox Stress ulcer prophylaxis: Protonix which she takes at home Nutrition: Heart healthy diet Code Status: Full code Plans to discharge patient to rehab, waiting for the appointment by insurance Subjective Date/time seen: 06/30/24 17:59 Interval history: Patient comfortable at bedside On voiding trial today Review of Systems Review of Systems: 12 systems were reviewed with pertinent positives and negatives per HPI. Except as documented in the HPI, all other systems were reviewed and are negative. All systems reviewed & are unremarkable except as noted in HPI and below Exam Narrative: General: Pleasant female in no acute distress HEENT:? Pupils equal and reactive, sclerae is clear, moist oral mucosa Neck:? Supple Respiratory:? Clear to auscultation bilaterally, decreased at bases, adequate air entry Cardiac:? Irregularly irregular, rate controlled Abdomen:? Soft, nontender, nondistended, normoactive bowel sounds Extremities:? No edema, palpable pedal pulses Neuro:? Patient is awake, alert, oriented, nonfocal, able to answer questions and follow simple commands Skin:? Warm and dry Psych:? Normal mentation and affect Const: Other: Weight 67.3 kg BMI 30 HENMT: Other: Mucous membranes are dry, no oral pharyngeal erythema, fair dentition, head is normocephalic atraumatic Eyes: Other: Pupils are equal and reactive, bilateral lens replacements noted, extraocular movements intact Neck: Other: No JVD, no thyromegaly Resp: Other: Clear to auscultation bilaterally, no increased work of breathing Cardio: Other: Irregularly irregular rhythm, 2+ bilateral radial pedal pulses, no murmur, no JVD GI: Other: Soft, nontender, palpable fullness in the lower abdomen that seems to and around the umbilicus, normoactive bowel sounds Skin: Other: No jaundice, no pallor Neuro: Other: Alert orient x3, speech is clear, no facial asymmetry, no localizing neurologic deficits noted during conversation Extrem: Other: No clubbing, cyanosis or edema, moves all extremities equally Psych: Other: Appropriate mood and affect, pleasant and cooperative, judgment and insight fair Objective Data Vital Signs Vital Signs: Vital Signs - 24 hr 06/29/24 20:00 06/30/24 00:27 06/30/24 07:30 Temperature 97.6 F 97.8 F Pulse Rate 68 89 80 Respiratory Rate 24 H 24 H 18 Blood Pressure 154/63 H 152/61 H Pulse Oximetry 95 97 96 Oxygen Delivery Room Air 06/30/24 08:00 06/30/24 15:52 Temperature 97.4 F L Pulse Rate 85 Respiratory Rate 20 Blood Pressure Pulse Oximetry 98 Oxygen Delivery Room Air Intake/Output Intake/Output: Intake & Output 06/27/24 06/28/24 06/29/24 06/30/24 23:59 23:59 23:59 23:59 Intake Total 1849.4 1720 1440 720 Output Total 9421 148 2881 902 Balance 849.4 1145 140 -182 Meds/Results Medications: Active Medications Generic Name Dose Route Start Last Admin Trade Name Freq PRN Reason Stop Dose Admin Acetaminophen 650 mg 06/27/24 02:34 06/30/24 16:47 Acetaminophen 325 Mg Tablet PO 650 mg Q4H PRN Administration Mild Pain (1-3) or Fever Atorvastatin Calcium 40 mg 06/27/24 21:00 06/29/24 20:56 Atorvastatin 40 Mg Tablet PO 40 mg HS KATERINA Administration Calcium Carbonate 500 mg 06/27/24 09:00 06/30/24 16:46 Calcium/Vitamin D 500 Mg/5 Mcg (200 I.U.) Tablet PO 500 mg TID KATERINA Administration Diclofenac Sodium 1 applic 06/27/24 09:00 06/30/24 16:47 Diclofenac Sodium 1% 100 Gm Gel (*Bkc) TOPICAL Not Given QID [facility] Enoxaparin Sodium 40 mg 06/28/24 09:00 06/30/24 09:43 Enoxaparin 40 Mg/0.4 Ml Syringe SUB-Q 40 mg DAILY KATERINA Administration Furosemide 40 mg 06/27/24 09:00 Furosemide 40 Mg Tablet PO DAILY KATERINA Losartan Potassium 25 mg 06/27/24 09:00 06/30/24 09:44 Losartan Potassium 25 Mg Tablet PO 25 mg DAILY KATERINA Administration Meloxicam 15 mg 06/27/24 09:00 Meloxicam 7.5 Mg Tablet PO QAM [facility] Metoclopramide HCl 10 mg 06/29/24 11:22 06/29/24 13:29 Metoclopramide Hcl Inj 10 Mg/2 Ml Vial IV PUSH 10 mg Q6HR PRN Administration Nausea Niacin 500 mg 06/27/24 09:00 06/30/24 16:47 Niacin Sa 500 Mg Tablet PO Not Given TID [facility] Ondansetron HCl 4 mg 06/27/24 02:34 06/30/24 04:43 Ondansetron Inj 4 Mg/2 Ml Vial IV PUSH 4 mg Q4H PRN Administration Nausea Pantoprazole Sodium 40 mg 06/27/24 09:00 06/30/24 09:44 Pantoprazole 40 Mg Tablet PO 40 mg Q12HR KATERINA Administration Potassium Chloride 20 meq 06/27/24 09:00 06/30/24 09:45 Potassium Chloride 20 Meq Er Tablet PO 20 meq DAILY KATERINA Administration Tamsulosin HCl 0.4 mg 06/29/24 21:00 06/29/24 20:56 Tamsulosin Hcl 0.4 Mg Capsule PO 0.4 mg QHS KATERINA Administration Radiology Results: ITS Impressions Head CT 06/27/24 05:12 Impression: No significant abnormality seen. Cervical Spine CT 06/27/24 05:13 Impression: No acute fracture. Degenerative spondylosis, as above. Knee X-Ray 06/27/24 05:13 Impression: Unremarkable left knee radiographs. Chest X-Ray 06/27/24 05:18 Impression: Possible minimal bibasilar pulmonary edema with minimal central congestive change. Stable cardiomegaly. Carotid Doppler Study 06/27/24 15:15 IMPRESSION: 1. Less than 50% stenosis in the right internal carotid artery by sonographic criteria. 2. Less than 50% stenosis in the left internal carotid artery by sonographic criteria. Labs Labs: Laboratory Results - last 24 hr 06/30/24 04:10 Potassium 4.2 Quality VTE Prophylaxis VTE prophylaxis: mechanical ordered and pharmacologic ordered
[2024-06-30 20:00] VITALS: PULSE 85; RESP 20; O2SAT 98
[2024-06-30] MEDS: ATORVASTATIN 40 MG TABLET PO (20:56)
[2024-06-30] MEDS: TAMSULOSIN HCL 0.4 MG CAPSULE PO (20:56)
[2024-07-01 00:10] VITALS: BP 144/59; RESP 20; TEMP 36.4; O2SAT 98
[2024-07-01] MEDS: ACETAMINOPHEN 325 MG TABLET 650 MG PO ×3 (04:45→17:27)
--- NOTE | 2024-07-01 06:52 | ADMGEN ---
This patient, Brianna Martinez, was admitted to IMU Room 202-01. Patient/family oriented to hospital policies and general routines including ID bracelet, bed and alarms, visiting hours, pain management, procedures, bathroom and other care routines, personal items, smoking policy, room service/diet, and visiting hours. Information on how to activate the Rapid Response Team has been discussed. Patient/Family are encouraged to report perceived risks to care and to ask questions if they do not understand what they are told or what they should do. This patient, Brianna Martinez, was transferred to [[id number] ] on 07/01/24 at 0653. Personal belongings sent with patient. Report given to [Janeth [email or web address] ]. Appropriate documentation sent with patient.
--- NOTE | 2024-07-01 07:53 | PC.NURSE ---
This patient, Brianna Martinez, was received from [imu ] on 07/01/24 at 0750. Patient/family oriented to unit policies and routines.
[2024-07-01 08:00] VITALS: PULSE 103; O2SAT 96
--- NOTE | 2024-07-01 09:31 | P.PNIM_ITS ---
Progress Note: A&P Assessment and Plan (1) Bradycardia: Code(s): R00.1 - Bradycardia, unspecified Status: Acute (2) HLD (hyperlipidemia): Qualifiers: Hyperlipidemia type: mixed hyperlipidemia Qualified Code(s): E78.2 - Mixed hyperlipidemia Code(s): E78.5 - Hyperlipidemia, unspecified Status: Acute (3) CKD (chronic kidney disease) stage 3, GFR 30-59 ml/min: Code(s): N18.30 - Chronic kidney disease, stage 3 unspecified Status: Acute (4) Essential hypertension: Code(s): I10 - Essential (primary) hypertension Status: Acute Plan (1) Symptomatic bradycardia: Code(s): R00.1 - Bradycardia, unspecified Status: Acute Assessment and Plan: Patient presented with syncope, symptomatic bradycardia with heart rates in the 20s to 40s with brief pauses. 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 cardiology following (2) HTN (hypertension): Qualifiers: Hypertension type: essential hypertension Qualified Code(s): I10 - Essential (primary) hypertension Code(s): I10 - Essential (primary) hypertension Status: Acute Assessment and Plan: Blood pressures have been stable to high at times restart losartan, -avoid AV dulce maria blockers (3) CKD (chronic kidney disease) stage 3, GFR 30-59 ml/min: Code(s): N18.30 - Chronic kidney disease, stage 3 unspecified Status: Acute Assessment and Plan: Patient with CKD, creatinine close to baseline -continue to monitor urine output, renal function electrolyte (4) HLD (hyperlipidemia): Qualifiers: Hyperlipidemia type: mixed hyperlipidemia Qualified Code(s): E78.2 - Mixed hyperlipidemia Code(s): E78.5 - Hyperlipidemia, unspecified Status: Acute Assessment and Plan: Continue atorvastatin Urinary retention passed voiding trial continue Tamsulosin Urology following Plan DVT prophylaxis: SqLovenox Stress ulcer prophylaxis: Protonix which she takes at home Nutrition: Heart healthy diet Code Status: Full code Plans to discharge patient to rehab, awaiting insurance auth. Subjective Date/time seen: 07/01/24 09:31 Interval history: Patient comfortable at bedside passed voiding trial awaiting insurance auth for discharge Review of Systems Review of Systems: 12 systems were reviewed with pertinent positives and negatives per HPI. Except as documented in the HPI, all other systems were reviewed and are negative. All systems reviewed & are unremarkable except as noted in HPI and below Exam Narrative: General: Pleasant female in no acute distress HEENT:? Pupils equal and reactive, sclerae is clear, moist oral mucosa Neck:? Supple Respiratory:? Clear to auscultation bilaterally, decreased at bases, adequate air entry Cardiac:? Irregularly irregular, rate controlled Abdomen:? Soft, nontender, nondistended, normoactive bowel sounds Extremities:? No edema, palpable pedal pulses Neuro:? Patient is awake, alert, oriented, nonfocal, able to answer questions and follow simple commands Skin:? Warm and dry Psych:? Normal mentation and affect Const: Other: Weight 67.3 kg BMI 30 HENMT: Other: Mucous membranes are dry, no oral pharyngeal erythema, fair dentition, head is normocephalic atraumatic Eyes: Other: Pupils are equal and reactive, bilateral lens replacements noted, extraocular movements intact Neck: Other: No JVD, no thyromegaly Resp: Other: Clear to auscultation bilaterally, no increased work of breathing Cardio: Other: Irregularly irregular rhythm, 2+ bilateral radial pedal pulses, no murmur, no JVD GI: Other: Soft, nontender, palpable fullness in the lower abdomen that seems to and around the umbilicus, normoactive bowel sounds Skin: Other: No jaundice, no pallor Neuro: Other: Alert orient x3, speech is clear, no facial asymmetry, no localizing neurologic deficits noted during conversation Extrem: Other: No clubbing, cyanosis or edema, moves all extremities equally Psych: Other: Appropriate mood and affect, pleasant and cooperative, judgment and insight fair Objective Data Vital Signs Vital Signs: Vital Signs - 24 hr 06/30/24 15:52 06/30/24 20:00 07/01/24 00:10 Temperature 97.4 F L 97.6 F Pulse Rate 85 85 Respiratory Rate 20 20 20 Blood Pressure 144/59 H Pulse Oximetry 98 98 98 Oxygen Delivery Room Air Intake/Output Intake/Output: Intake & Output 06/28/24 06/29/24 06/30/24 07/01/24 23:59 23:59 23:59 23:59 Intake Total 1720 1440 720 250 Output Total 575 1300 977 201 Balance 1145 140 -257 49 Meds/Results Medications: Active Medications Generic Name Dose Route Start Last Admin Trade Name Freq PRN Reason Stop Dose Admin Acetaminophen 650 mg 06/27/24 02:34 07/01/24 04:45 Acetaminophen 325 Mg Tablet PO 650 mg Q4H PRN Administration Mild Pain (1-3) or Fever Atorvastatin Calcium 40 mg 06/27/24 21:00 06/30/24 20:56 Atorvastatin 40 Mg Tablet PO 40 mg HS KATERINA Administration Calcium Carbonate 500 mg 06/27/24 09:00 06/30/24 16:46 Calcium/Vitamin D 500 Mg/5 Mcg (200 I.U.) Tablet PO 500 mg TID KATERINA Administration Diclofenac Sodium 1 applic 06/27/24 09:00 06/30/24 20:57 Diclofenac Sodium 1% 100 Gm Gel (*Bkc) TOPICAL 1 applic QID KATERINA Administration Enoxaparin Sodium 40 mg 06/28/24 09:00 06/30/24 09:43 Enoxaparin 40 Mg/0.4 Ml Syringe SUB-Q 40 mg DAILY KATERINA Administration Furosemide 40 mg 06/27/24 09:00 Furosemide 40 Mg Tablet PO DAILY KATER[facility] Losartan Potassium 25 mg 06/27/24 09:00 06/30/24 09:44 Losartan Potassium 25 Mg Tablet PO 25 mg DAILY [facility] Administration Meloxicam 15 mg 06/27/24 09:00 Meloxicam 7.5 Mg Tablet PO QAM [facility] Metoclopramide HCl 10 mg 06/29/24 11:22 06/29/24 13:29 Metoclopramide Hcl Inj 10 Mg/2 Ml Vial IV PUSH 10 mg Q6HR PRN Administration Nausea Niacin 500 mg 06/27/24 09:00 06/30/24 16:47 Niacin Sa 500 Mg Tablet PO Not Given TID [facility] Ondansetron HCl 4 mg 06/27/24 02:34 06/30/24 04:43 Ondansetron Inj 4 Mg/2 Ml Vial IV PUSH 4 mg Q4H PRN Administration Nausea Pantoprazole Sodium 40 mg 06/27/24 09:00 06/30/24 20:56 Pantoprazole 40 Mg Tablet PO 40 mg Q12HR KATERINA Administration Potassium Chloride 20 meq 06/27/24 09:00 06/30/24 09:45 Potassium Chloride 20 Meq Er Tablet PO 20 meq DAILY [facility] Administration Tamsulosin HCl 0.4 mg 06/29/24 21:00 06/30/24 20:56 Tamsulosin Hcl 0.4 Mg Capsule PO 0.4 mg QHS KATERINA Administration Radiology Results: ITS Impressions Head CT 06/27/24 05:12 Impression: No significant abnormality seen. Cervical Spine CT 06/27/24 05:13 Impression: No acute fracture. Degenerative spondylosis, as above. Knee X-Ray 06/27/24 05:13 Impression: Unremarkable left knee radiographs. Chest X-Ray 06/27/24 05:18 Impression: Possible minimal bibasilar pulmonary edema with minimal central congestive change. Stable cardiomegaly. Carotid Doppler Study 06/27/24 15:15 IMPRESSION: 1. Less than 50% stenosis in the right internal carotid artery by sonographic criteria. 2. Less than 50% stenosis in the left internal carotid artery by sonographic criteria. Quality VTE Prophylaxis VTE prophylaxis: mechanical ordered and pharmacologic ordered
[2024-07-01] MEDS: CALCIUM/VITAMIN D 500 MG/5 MCG (200 I.U.) TABLET PO ×3 (09:56→17:29)
[2024-07-01] MEDS: LOSARTAN POTASSIUM 25 MG TABLET PO (09:56)
[2024-07-01] MEDS: PANTOPRAZOLE 40 MG TABLET PO ×2 (09:56→21:03)
[2024-07-01] MEDS: POTASSIUM CHLORIDE 20 MEQ ER TABLET PO (09:56)
[2024-07-01] MEDS: DICLOFENAC SODIUM 1% 100 GM GEL (*BKC) 1 APPLIC TOPICAL ×3 (09:57→17:27)
[2024-07-01] MEDS: ENOXAPARIN 40 MG/0.4 ML SYRINGE SUB-Q (09:57)
[2024-07-01] MEDS: ONDANSETRON INJ 4 MG/2 ML VIAL IV PUSH (10:04)
--- NOTE | 2024-07-01 10:47 | P.PNUR_ITS ---
Progress Note: A&P Assessment and Plan (1) Urinary retention: Code(s): R33.9 - Retention of urine, unspecified Status: Acute Assessment and Plan: * Buenrostro catheter has been out for greater than 24 hours. Although she is voiding spontaneously she has some urinary hesitancy and some sense of incomplete emptying. I do not palpate bladder distension. * Continue voiding trial. Bladder scan for postvoid residual Subjective Subjective Date/Time Seen: 07/01/24 10:47 Interval history: Voiding spontaneously but with some urinary hesitancy and uncertainty about complete emptying Review of Systems Review of Systems: All systems reviewed & are unremarkable except as noted in HPI and below Exam Const: General: no acute distress Resp: Effort & Inspection: normal respiratory effort GI: Inspection: non-distended GI Palp: No abdominal tenderness and No Guarding due to palpation present (GI) Auscultation: normal bowel sounds Objective Data Vital Signs Vital Signs: Vital Signs - 24 hr 06/30/24 15:52 06/30/24 20:00 07/01/24 00:10 Temperature 97.4 F L 97.6 F Pulse Rate 85 85 Respiratory Rate 20 20 20 Blood Pressure 144/59 H Pulse Oximetry 98 98 98 Oxygen Delivery Room Air Intake/Output Intake/Output: Intake & Output 06/28/24 06/29/24 06/30/24 07/01/24 23:59 23:59 23:59 23:59 Intake Total 1720 1440 720 490 Output Total 575 1300 977 201 Balance 1145 140 -257 289 Meds/Results Medications: Active Medications Generic Name Dose Route Start Last Admin Trade Name Freq PRN Reason Stop Dose Admin Acetaminophen 650 mg 06/27/24 02:34 07/01/24 04:45 Acetaminophen 325 Mg Tablet PO 650 mg Q4H PRN Administration Mild Pain (1-3) or Fever Atorvastatin Calcium 40 mg 06/27/24 21:00 06/30/24 20:56 Atorvastatin 40 Mg Tablet PO 40 mg HS KATERINA Administration Calcium Carbonate 500 mg 06/27/24 09:00 07/01/24 09:56 Calcium/Vitamin D 500 Mg/5 Mcg (200 I.U.) Tablet PO 500 mg TID KATERINA Administration Diclofenac Sodium 1 applic 06/27/24 09:00 07/01/24 09:57 Diclofenac Sodium 1% 100 Gm Gel (*Bkc) TOPICAL 1 applic QID KATERINA Administration Enoxaparin Sodium 40 mg 06/28/24 09:00 07/01/24 09:57 Enoxaparin 40 Mg/0.4 Ml Syringe SUB-Q 40 mg DAILY [facility]ATER[facility] Administration Furosemide 40 mg 06/27/24 09:00 Furosemide 40 Mg Tablet PO DAILY [facility] Losartan Potassium 25 mg 06/27/24 09:00 07/01/24 09:56 Losartan Potassium 25 Mg Tablet PO 25 mg DAILY KATERINA Administration Meloxicam 15 mg 06/27/24 09:00 Meloxicam 7.5 Mg Tablet PO QAM [facility] Metoclopramide HCl 10 mg 06/29/24 11:22 06/29/24 13:29 Metoclopramide Hcl Inj 10 Mg/2 Ml Vial IV PUSH 10 mg Q6HR PRN Administration Nausea Niacin 500 mg 06/27/24 09:00 07/01/24 10:10 Niacin Sa 500 Mg Tablet PO Not Given TID [facility] Ondansetron HCl 4 mg 06/27/24 02:34 07/01/24 10:04 Ondansetron Inj 4 Mg/2 Ml Vial IV PUSH 4 mg Q4H PRN Administration Nausea Pantoprazole Sodium 40 mg 06/27/24 09:00 07/01/24 09:56 Pantoprazole 40 Mg Tablet PO 40 mg Q12HR KATERINA Administration Potassium Chloride 20 meq 06/27/24 09:00 07/01/24 09:56 Potassium Chloride 20 Meq Er Tablet PO 20 meq DAILY KATER[facility] Administration Tamsulosin HCl 0.4 mg 06/29/24 21:00 06/30/24 20:56 Tamsulosin Hcl 0.4 Mg Capsule PO 0.4 mg QHS KATERINA Administration Radiology Results: ITS Impressions Head CT 06/27/24 05:12 Impression: No significant abnormality seen. Cervical Spine CT 06/27/24 05:13 Impression: No acute fracture. Degenerative spondylosis, as above. Knee X-Ray 06/27/24 05:13 Impression: Unremarkable left knee radiographs. Chest X-Ray 06/27/24 05:18 Impression: Possible minimal bibasilar pulmonary edema with minimal central congestive change. Stable cardiomegaly. Carotid Doppler Study 06/27/24 15:15 IMPRESSION: 1. Less than 50% stenosis in the right internal carotid artery by sonographic criteria. 2. Less than 50% stenosis in the left internal carotid artery by sonographic criteria.
[2024-07-01 14:00] VITALS: BP 140/52; PULSE 96; RESP 18; TEMP 36.1; O2SAT 100
[2024-07-01 15:46] VITALS: PULSE 88
[2024-07-01] MEDS: ATORVASTATIN 40 MG TABLET PO (21:03)
[2024-07-01] MEDS: TAMSULOSIN HCL 0.4 MG CAPSULE PO (21:03)
[2024-07-01 21:20] VITALS: BP 148/48; PULSE 85; RESP 20; TEMP 36.3; O2SAT 96
[2024-07-02 05:30] VITALS: BP 149/65; BP 183/76; PULSE 106; PULSE 96; RESP 20; TEMP 37.1; O2SAT 96; O2SAT 97
[2024-07-02 06:30] VITALS: BP 98/57; PULSE 64; RESP 16; TEMP 36.6; O2SAT 98
[2024-07-02 08:00] VITALS: PULSE 91; O2SAT 97
[2024-07-02] MEDS: ONDANSETRON INJ 4 MG/2 ML VIAL IV PUSH ×2 (10:07→14:37)
[2024-07-02] MEDS: DICLOFENAC SODIUM 1% 100 GM GEL (*BKC) 1 APPLIC TOPICAL ×4 (10:11→20:52)
[2024-07-02] MEDS: PANTOPRAZOLE 40 MG TABLET PO ×2 (10:12→20:50)
[2024-07-02] MEDS: LOSARTAN POTASSIUM 25 MG TABLET PO (10:12)
[2024-07-02] MEDS: CALCIUM/VITAMIN D 500 MG/5 MCG (200 I.U.) TABLET PO ×3 (10:12→16:41)
[2024-07-02] MEDS: POTASSIUM CHLORIDE 20 MEQ ER TABLET PO (10:12)
[2024-07-02] MEDS: ACETAMINOPHEN 325 MG TABLET 650 MG PO ×2 (10:17→16:40)
--- NOTE | 2024-07-02 10:52 | WPDUROPN2 ---
Progress Note: A&P Assessment and Plan (1) Urinary retention: Code(s): R33.9 - Retention of urine, unspecified Status: Acute Assessment and Plan: PVR by bladder scan 192 cc is not significant - OK to leave catheter out. No additional intervention plan. Will sign off Subjective Subjective Date/Time Seen: 07/02/24 10:52 Interval history: Patient continues to void well without sense of incomplete emptying Review of Systems Review of Systems: All systems reviewed & are unremarkable except as noted in HPI and below Exam Const: General: no acute distress Resp: Effort & Inspection: normal respiratory effort GI: Inspection: non-distended GI Palp: No abdominal tenderness and No Guarding due to palpation present (GI) Auscultation: normal bowel sounds Objective Data Vital Signs Vital Signs: Vital Signs - 24 hr 07/01/24 14:00 07/01/24 15:46 07/01/24 20:00 Temperature 96.9 F L Pulse Rate 96 88 Respiratory Rate 18 Blood Pressure 140/52 L Pulse Oximetry 100 Oxygen Delivery Room Air 07/01/24 21:20 07/02/24 05:30 07/02/24 05:30 Temperature 97.3 F L 98.8 F 98.8 F Pulse Rate 85 96 106 H Respiratory Rate 20 20 20 Blood Pressure 148/48 H 149/65 H 183/76 H Pulse Oximetry 96 96 97 Oxygen Delivery 07/02/24 06:30 Temperature 97.9 F Pulse Rate 64 Respiratory Rate 16 Blood Pressure 98/57 L Pulse Oximetry 98 Oxygen Delivery Intake/Output Intake/Output: Intake & Output 06/29/24 06/30/24 07/01/24 07/02/24 23:59 23:59 23:59 23:59 Intake Total 1440 720 970 714 Output Total 1300 977 201 600 Balance 140 -257 769 114 Meds/Results Medications: Active Medications Generic Name Dose Route Start Last Admin Trade Name Freq PRN Reason Stop Dose Admin Acetaminophen 650 mg 06/27/24 02:34 07/02/24 10:17 Acetaminophen 325 Mg Tablet PO 650 mg Q4H PRN Administration Mild Pain (1-3) or Fever Atorvastatin Calcium 40 mg 06/27/24 21:00 07/01/24 21:03 Atorvastatin 40 Mg Tablet PO 40 mg HS KATERINA Administration Calcium Carbonate 500 mg 06/27/24 09:00 07/02/24 10:12 Calcium/Vitamin D 500 Mg/5 Mcg (200 I.U.) Tablet PO 500 mg TID [facility] Administration Diclofenac Sodium 1 applic 06/27/24 09:00 07/02/24 10:11 Diclofenac Sodium 1% 100 Gm Gel (*Bkc) TOPICAL 1 applic QID [facility] Administration Enoxaparin Sodium 40 mg 06/28/24 09:00 07/02/24 10:13 Enoxaparin 40 Mg/0.4 Ml Syringe SUB-Q Not Given DAILY [facility] Furosemide 40 mg 06/27/24 09:00 Furosemide 40 Mg Tablet PO DAILY [facility] Losartan Potassium 25 mg 06/27/24 09:00 07/02/24 10:12 Losartan Potassium 25 Mg Tablet PO 25 mg DAILY [facility] Administration Meloxicam 15 mg 06/27/24 09:00 Meloxicam 7.5 Mg Tablet PO QAM [facility] Metoclopramide HCl 10 mg 06/29/24 11:22 06/29/24 13:29 Metoclopramide Hcl Inj 10 Mg/2 Ml Vial IV PUSH 10 mg Q6HR PRN Administration Nausea Niacin 500 mg 06/27/24 09:00 07/02/24 10:04 Niacin Sa 500 Mg Tablet PO Not Given TID [facility] Ondansetron HCl 4 mg 06/27/24 02:34 07/02/24 10:07 Ondansetron Inj 4 Mg/2 Ml Vial IV PUSH 4 mg Q4H PRN Administration Nausea Pantoprazole Sodium 40 mg 06/27/24 09:00 07/02/24 10:12 Pantoprazole 40 Mg Tablet PO 40 mg Q12HR KATERINA Administration Potassium Chloride 20 meq 06/27/24 09:00 07/02/24 10:12 Potassium Chloride 20 Meq Er Tablet PO 20 meq DAILY [facility] Administration Tamsulosin HCl 0.4 mg 06/29/24 21:00 07/01/24 21:03 Tamsulosin Hcl 0.4 Mg Capsule PO 0.4 mg QHS KATERINA Administration Radiology Results: ITS Impressions Head CT 06/27/24 05:12 Impression: No significant abnormality seen. Cervical Spine CT 06/27/24 05:13 Impression: No acute fracture. Degenerative spondylosis, as above. Knee X-Ray 06/27/24 05:13 Impression: Unremarkable left knee radiographs. Chest X-Ray 06/27/24 05:18 Impression: Possible minimal bibasilar pulmonary edema with minimal central congestive change. Stable cardiomegaly. Carotid Doppler Study 06/27/24 15:15 IMPRESSION: 1. Less than 50% stenosis in the right internal carotid artery by sonographic criteria. 2. Less than 50% stenosis in the left internal carotid artery by sonographic criteria. Labs Labs: Laboratory Results - last 24 hr 07/02/24 06:45 Potassium 4.0
--- NOTE | 2024-07-02 11:45 | P.PNIM_ITS ---
Progress Note: A&P Assessment and Plan (1) Bradycardia: Code(s): R00.1 - Bradycardia, unspecified Status: Acute (2) HLD (hyperlipidemia): Qualifiers: Hyperlipidemia type: mixed hyperlipidemia Qualified Code(s): E78.2 - Mixed hyperlipidemia Code(s): E78.5 - Hyperlipidemia, unspecified Status: Acute (3) CKD (chronic kidney disease) stage 3, GFR 30-59 ml/min: Code(s): N18.30 - Chronic kidney disease, stage 3 unspecified Status: Acute (4) Essential hypertension: Code(s): I10 - Essential (primary) hypertension Status: Acute Plan (1) Symptomatic bradycardia: Code(s): R00.1 - Bradycardia, unspecified Status: Acute Assessment and Plan: Patient presented with syncope, symptomatic bradycardia with heart rates in the 20s to 40s with brief pauses. 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 cardiology following (2) HTN (hypertension): Qualifiers: Hypertension type: essential hypertension Qualified Code(s): I10 - Essential (primary) hypertension Code(s): I10 - Essential (primary) hypertension Status: Acute Assessment and Plan: Blood pressures have been stable to high at times restart losartan, -avoid AV dulce maria blockers (3) CKD (chronic kidney disease) stage 3, GFR 30-59 ml/min: Code(s): N18.30 - Chronic kidney disease, stage 3 unspecified Status: Acute Assessment and Plan: Patient with CKD, creatinine close to baseline -continue to monitor urine output, renal function electrolyte (4) HLD (hyperlipidemia): Qualifiers: Hyperlipidemia type: mixed hyperlipidemia Qualified Code(s): E78.2 - Mixed hyperlipidemia Code(s): E78.5 - Hyperlipidemia, unspecified Status: Acute Assessment and Plan: Continue atorvastatin Urinary retention oFf veras continue Tamsulosin Urology following Plan DVT prophylaxis: SqLovenox Stress ulcer prophylaxis: Protonix which she takes at home Nutrition: Heart healthy diet Code Status: Full code Plans to discharge patient to rehab, awaiting insurance auth. Subjective Date/time seen: 07/02/24 11:45 Interval history: Patient comfortable at bedside off veras Awaiting insurance auth for placement Review of Systems Review of Systems: 12 systems were reviewed with pertinent positives and negatives per HPI. Except as documented in the HPI, all other systems were reviewed and are negative. All systems reviewed & are unremarkable except as noted in HPI and below Exam Narrative: General: Pleasant female in no acute distress HEENT:? Pupils equal and reactive, sclerae is clear, moist oral mucosa Neck:? Supple Respiratory:? Clear to auscultation bilaterally, decreased at bases, adequate air entry Cardiac:? Irregularly irregular, rate controlled Abdomen:? Soft, nontender, nondistended, normoactive bowel sounds Extremities:? No edema, palpable pedal pulses Neuro:? Patient is awake, alert, oriented, nonfocal, able to answer questions and follow simple commands Skin:? Warm and dry Psych:? Normal mentation and affect Const: Other: Weight 67.3 kg BMI 30 HENMT: Other: Mucous membranes are dry, no oral pharyngeal erythema, fair dentition, head is normocephalic atraumatic Eyes: Other: Pupils are equal and reactive, bilateral lens replacements noted, extraocular movements intact Neck: Other: No JVD, no thyromegaly Resp: Other: Clear to auscultation bilaterally, no increased work of breathing Cardio: Other: Irregularly irregular rhythm, 2+ bilateral radial pedal pulses, no murmur, no JVD GI: Other: Soft, nontender, palpable fullness in the lower abdomen that seems to and around the umbilicus, normoactive bowel sounds Skin: Other: No jaundice, no pallor Neuro: Other: Alert orient x3, speech is clear, no facial asymmetry, no localizing neurologic deficits noted during conversation Extrem: Other: No clubbing, cyanosis or edema, moves all extremities equally Psych: Other: Appropriate mood and affect, pleasant and cooperative, judgment and insight fair Objective Data Vital Signs Vital Signs: Vital Signs - 24 hr 07/01/24 14:00 07/01/24 15:46 07/01/24 20:00 Temperature 96.9 F L Pulse Rate 96 88 Respiratory Rate 18 Blood Pressure 140/52 L Pulse Oximetry 100 Oxygen Delivery Room Air 07/01/24 21:20 07/02/24 05:30 07/02/24 05:30 Temperature 97.3 F L 98.8 F 98.8 F Pulse Rate 85 96 106 H Respiratory Rate 20 20 20 Blood Pressure 148/48 H 149/65 H 183/76 H Pulse Oximetry 96 96 97 Oxygen Delivery 07/02/24 06:30 07/02/24 08:00 Temperature 97.9 F Pulse Rate 64 91 Respiratory Rate 16 Blood Pressure 98/57 L Pulse Oximetry 98 97 Oxygen Delivery Room Air Intake/Output Intake/Output: Intake & Output 06/29/24 06/30/24 07/01/24 07/02/24 23:59 23:59 23:59 23:59 Intake Total 1440 720 970 714 Output Total 1300 977 201 600 Balance 140 -257 769 114 Meds/Results Medications: Active Medications Generic Name Dose Route Start Last Admin Trade Name Freq PRN Reason Stop Dose Admin Acetaminophen 650 mg 06/27/24 02:34 07/02/24 10:17 Acetaminophen 325 Mg Tablet PO 650 mg Q4H PRN Administration Mild Pain (1-3) or Fever Atorvastatin Calcium 40 mg 06/27/24 21:00 07/01/24 21:03 Atorvastatin 40 Mg Tablet PO 40 mg HS KATERINA Administration Calcium Carbonate 500 mg 06/27/24 09:00 07/02/24 10:12 Calcium/Vitamin D 500 Mg/5 Mcg (200 I.U.) Tablet PO 500 mg TID KATERINA Administration Diclofenac Sodium 1 applic 06/27/24 09:00 07/02/24 10:11 Diclofenac Sodium 1% 100 Gm Gel (*Bk) TOPICAL 1 applic QID KATERINA Administration Enoxaparin Sodium 40 mg 06/28/24 09:00 07/02/24 10:13 Enoxaparin 40 Mg/0.4 Ml Syringe SUB-Q Not Given DAILY [facility] Furosemide 40 mg 06/27/24 09:00 Furosemide 40 Mg Tablet PO DAILY [facility]ATER[facility] Losartan Potassium 25 mg 06/27/24 09:00 07/02/24 10:12 Losartan Potassium 25 Mg Tablet PO 25 mg DAILY KATERINA Administration Meloxicam 15 mg 06/27/24 09:00 Meloxicam 7.5 Mg Tablet PO QAM [facility] Metoclopramide HCl 10 mg 06/29/24 11:22 06/29/24 13:29 Metoclopramide Hcl Inj 10 Mg/2 Ml Vial IV PUSH 10 mg Q6HR PRN Administration Nausea Niacin 500 mg 06/27/24 09:00 07/02/24 10:04 Niacin Sa 500 Mg Tablet PO Not Given TID [facility] Ondansetron HCl 4 mg 06/27/24 02:34 07/02/24 10:07 Ondansetron Inj 4 Mg/2 Ml Vial IV PUSH 4 mg Q4H PRN Administration Nausea Pantoprazole Sodium 40 mg 06/27/24 09:00 07/02/24 10:12 Pantoprazole 40 Mg Tablet PO 40 mg Q12HR KATERINA Administration Potassium Chloride 20 meq 06/27/24 09:00 07/02/24 10:12 Potassium Chloride 20 Meq Er Tablet PO 20 meq DAILY [facility] Administration Tamsulosin HCl 0.4 mg 06/29/24 21:00 07/01/24 21:03 Tamsulosin Hcl 0.4 Mg Capsule PO 0.4 mg QHS KATERINA Administration Radiology Results: ITS Impressions Head CT 06/27/24 05:12 Impression: No significant abnormality seen. Cervical Spine CT 06/27/24 05:13 Impression: No acute fracture. Degenerative spondylosis, as above. Knee X-Ray 06/27/24 05:13 Impression: Unremarkable left knee radiographs. Chest X-Ray 06/27/24 05:18 Impression: Possible minimal bibasilar pulmonary edema with minimal central congestive change. Stable cardiomegaly. Carotid Doppler Study 06/27/24 15:15 IMPRESSION: 1. Less than 50% stenosis in the right internal carotid artery by sonographic criteria. 2. Less than 50% stenosis in the left internal carotid artery by sonographic criteria. Labs Labs: Laboratory Results - last 24 hr 07/02/24 06:45 Potassium 4.0 Quality VTE Prophylaxis VTE prophylaxis: mechanical ordered and pharmacologic ordered
[2024-07-02 14:00] VITALS: BP 163/56; PULSE 104; RESP 18; TEMP 36.4; O2SAT 96
[2024-07-02] MEDS: ATORVASTATIN 40 MG TABLET PO (20:50)
[2024-07-02] MEDS: TAMSULOSIN HCL 0.4 MG CAPSULE PO (20:51)
[2024-07-02 21:35] VITALS: BP 146/58; PULSE 90; RESP 20; TEMP 37.4; O2SAT 97
[2024-07-03 04:45] VITALS: BP 173/58; PULSE 91; RESP 16; TEMP 36.1; O2SAT 95
[2024-07-03] MEDS: ACETAMINOPHEN 325 MG TABLET 650 MG PO ×3 (09:18→20:21)
[2024-07-03] MEDS: PANTOPRAZOLE 40 MG TABLET PO ×2 (09:19→20:20)
[2024-07-03] MEDS: CALCIUM/VITAMIN D 500 MG/5 MCG (200 I.U.) TABLET PO ×3 (09:19→16:53)
[2024-07-03] MEDS: POTASSIUM CHLORIDE 20 MEQ ER TABLET PO (09:19)
[2024-07-03] MEDS: LOSARTAN POTASSIUM 25 MG TABLET PO (09:20)
[2024-07-03] MEDS: NIACIN SA 500 MG TABLET PO ×2 (09:22→12:43)
[2024-07-03] MEDS: ENOXAPARIN 40 MG/0.4 ML SYRINGE SUB-Q (09:22)
[2024-07-03] MEDS: DICLOFENAC SODIUM 1% 100 GM GEL (*BKC) 1 APPLIC TOPICAL ×4 (09:23→20:22)
--- NOTE | 2024-07-03 09:33 | PM.IMPN ---
Progress Note: A&P Assessment and Plan (1) Bradycardia: Code(s): R00.1 - Bradycardia, unspecified Status: Acute (2) HLD (hyperlipidemia): Qualifiers: Hyperlipidemia type: mixed hyperlipidemia Qualified Code(s): E78.2 - Mixed hyperlipidemia Code(s): E78.5 - Hyperlipidemia, unspecified Status: Acute (3) CKD (chronic kidney disease) stage 3, GFR 30-59 ml/min: Code(s): N18.30 - Chronic kidney disease, stage 3 unspecified Status: Acute (4) Essential hypertension: Code(s): I10 - Essential (primary) hypertension Status: Acute Plan Symptomatic bradycardia: -Patient presented with syncope, symptomatic bradycardia with heart rates in the 20s to 40s with brief pauses. 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 cardiology following HTN (hypertension): -Blood pressures have been stable to high at times -restart losartan, -avoid AV dulce maria blockers CKD (chronic kidney disease) stage 3, GFR 30-59 ml/min: -Patient with CKD, creatinine close to baseline -continue to monitor urine output, renal function electrolyte HLD Continue atorvastatin Urinary retention oFf veras continue Tamsulosin Urology following Plan DVT prophylaxis: SqLovenox Stress ulcer prophylaxis: Protonix which she takes at home Nutrition: Heart healthy diet Code Status: Full code Plans to discharge patient to rehab, awaiting insurance auth. Subjective Date/time seen: 07/03/24 09:33 Interval history: No acute events overnight. Patient will be discharged tomorrow. Review of Systems Review of Systems: 12 systems were reviewed with pertinent positives and negatives per HPI. Except as documented in the HPI, all other systems were reviewed and are negative. All systems reviewed & are unremarkable except as noted in HPI and below Exam Narrative: General: Pleasant female in no acute distress HEENT:? Pupils equal and reactive, sclerae is clear, moist oral mucosa Neck:? Supple Respiratory:? Clear to auscultation bilaterally, decreased at bases, adequate air entry Cardiac:? Irregularly irregular, rate controlled Abdomen:? Soft, nontender, nondistended, normoactive bowel sounds Extremities:? No edema, palpable pedal pulses Neuro:? Patient is awake, alert, oriented, nonfocal, able to answer questions and follow simple commands Skin:? Warm and dry Psych:? Normal mentation and affect Const: Other: Weight 67.3 kg BMI 30 HENMT: Other: Mucous membranes are dry, no oral pharyngeal erythema, fair dentition, head is normocephalic atraumatic Eyes: Other: Pupils are equal and reactive, bilateral lens replacements noted, extraocular movements intact Neck: Other: No JVD, no thyromegaly Resp: Other: Clear to auscultation bilaterally, no increased work of breathing Cardio: Other: Irregularly irregular rhythm, 2+ bilateral radial pedal pulses, no murmur, no JVD GI: Other: Soft, nontender, palpable fullness in the lower abdomen that seems to and around the umbilicus, normoactive bowel sounds Skin: Other: No jaundice, no pallor Neuro: Other: Alert orient x3, speech is clear, no facial asymmetry, no localizing neurologic deficits noted during conversation Extrem: Other: No clubbing, cyanosis or edema, moves all extremities equally Psych: Other: Appropriate mood and affect, pleasant and cooperative, judgment and insight fair Objective Data Vital Signs Vital Signs: Vital Signs - 24 hr 07/02/24 14:00 07/02/24 21:35 07/03/24 04:45 Temperature 97.5 F L 99.4 F 96.9 F L Pulse Rate 104 H 90 91 Respiratory Rate 18 20 16 Blood Pressure 163/56 H 146/58 H 173/58 H Pulse Oximetry 96 97 95 Intake/Output Intake/Output: Intake & Output 06/30/24 07/01/24 07/02/24 07/03/24 23:59 23:59 23:59 23:59 Intake Total 720 970 954 100 Output Total 977 201 600 Balance -257 769 354 100 Meds/Results Medications: Active Medications Generic Name Dose Route Start Last Admin Trade Name Freq PRN Reason Stop Dose Admin Acetaminophen 650 mg 06/27/24 02:34 07/03/24 09:18 Acetaminophen 325 Mg Tablet PO 650 mg Q4H PRN Administration Mild Pain (1-3) or Fever Atorvastatin Calcium 40 mg 06/27/24 21:00 07/02/24 20:50 Atorvastatin 40 Mg Tablet PO 40 mg HS KATERINA Administration Calcium Carbonate 500 mg 06/27/24 09:00 07/03/24 09:19 Calcium/Vitamin D 500 Mg/5 Mcg (200 I.U.) Tablet PO 500 mg TID KATERINA Administration Diclofenac Sodium 1 applic 06/27/24 09:00 07/03/24 09:23 Diclofenac Sodium 1% 100 Gm Gel (*Bkc) TOPICAL 1 applic QID KATERINA Administration Enoxaparin Sodium 40 mg 06/28/24 09:00 07/03/24 09:22 Enoxaparin 40 Mg/0.4 Ml Syringe SUB-Q 40 mg DAILY KATERINA Administration Furosemide 40 mg 06/27/24 09:00 Furosemide 40 Mg Tablet PO DAILY [facility] Losartan Potassium 25 mg 06/27/24 09:00 07/03/24 09:20 Losartan Potassium 25 Mg Tablet PO 25 mg DAILY [facility] Administration Meloxicam 15 mg 06/27/24 09:00 Meloxicam 7.5 Mg Tablet PO QAM [facility] Metoclopramide HCl 10 mg 06/29/24 11:22 06/29/24 13:29 Metoclopramide Hcl Inj 10 Mg/2 Ml Vial IV PUSH 10 mg Q6HR PRN Administration Nausea Niacin 500 mg 06/27/24 09:00 07/03/24 09:22 Niacin Sa 500 Mg Tablet PO 500 mg TID [facility] Administration Ondansetron HCl 4 mg 06/27/24 02:34 07/02/24 14:37 Ondansetron Inj 4 Mg/2 Ml Vial IV PUSH 4 mg Q4H PRN Administration Nausea Pantoprazole Sodium 40 mg 06/27/24 09:00 07/03/24 09:19 Pantoprazole 40 Mg Tablet PO 40 mg Q12HR KATERINA Administration Potassium Chloride 20 meq 06/27/24 09:00 07/03/24 09:19 Potassium Chloride 20 Meq Er Tablet PO 20 meq DAILY [facility] Administration Tamsulosin HCl 0.4 mg 06/29/24 21:00 07/02/24 20:51 Tamsulosin Hcl 0.4 Mg Capsule PO 0.4 mg QHS KATERINA Administration Radiology Results: ITS Impressions Head CT 06/27/24 05:12 Impression: No significant abnormality seen. Cervical Spine CT 06/27/24 05:13 Impression: No acute fracture. Degenerative spondylosis, as above. Knee X-Ray 06/27/24 05:13 Impression: Unremarkable left knee radiographs. Chest X-Ray 06/27/24 05:18 Impression: Possible minimal bibasilar pulmonary edema with minimal central congestive change. Stable cardiomegaly. Carotid Doppler Study 06/27/24 15:15 IMPRESSION: 1. Less than 50% stenosis in the right internal carotid artery by sonographic criteria. 2. Less than 50% stenosis in the left internal carotid artery by sonographic criteria. Quality VTE Prophylaxis VTE prophylaxis: mechanical ordered and pharmacologic ordered Hospitalist MIPS Advance Care Plan I have confirmed that the patient's Advanced Care Plan is present, code status is documented, or surrogate decision maker is listed in patient medical record.: Yes Medication Reconciliation I have utilized all available resources to obtain, update and review the patients current medications (includes all prescriptions, OTC, herbals, cannabis, and nutritional supplements).: Yes
[2024-07-03] MEDS: ONDANSETRON INJ 4 MG/2 ML VIAL IV PUSH (09:59)
[2024-07-03 11:11] LABS: Hematocrit 41.7 % (37.0-47.0); Hemoglobin 13.2 g/dL (12.0-15.0); Mean Corpuscular HGB Conc 31.7 g/dl (32-36); Mean Corpuscular Hemoglobin 31.5 pg (26-34); Mean Corpuscular Volume 99.5 fl (80-100); Platelet Count Result 246 k/mm3 (150-375); Red Blood Count 4.19 M/mm3 (4.2-5.4); Red Cell Distribution Width 13.7 % (11.5-14.5); White Blood Count 6.7 K/mm3 (4.5-10.0)
[2024-07-03 11:31] LABS: Alanine Aminotransferase 97 U/L (6-35); Albumin Level 3.9 g/dL (3.5-5.1); Alkaline Phosphatase 59 U/L (38-126); Anion Gap 9 mmol/L (4-12); Aspartate Amino Transferase 93 U/L (14-36); Bilirubin,Total 0.8 mg/dL (0.2-1.3); Blood Urea Nitrogen 14 mg/dL (7-17); Calcium 9.5 mg/dL (8.4-10.2); Carbon Dioxide 28 mmol/L (22-30); Chloride 99 mmol/L (98-107); Estimated Glomerular Filt Rate 59; Glucose 145 mg/dL (65-110); Potassium 3.8 mmol/L (3.4-5.0); Sodium 136 mmol/L (137-145)
[2024-07-03 14:00] VITALS: BP 155/44; PULSE 98; RESP 18; TEMP 36.4; O2SAT 96
[2024-07-03] MEDS: ATORVASTATIN 40 MG TABLET PO (20:20)
[2024-07-03] MEDS: TAMSULOSIN HCL 0.4 MG CAPSULE PO (20:20)
[2024-07-03 21:30] VITALS: BP 162/63; PULSE 85; RESP 20; TEMP 36.6; O2SAT 95
--- OUTSIDE RECORDS SUMMARY | 2024-07-04 01:41 | XMS_ITS | Continuity of Care Document ---
Author Organization [facility] Address [address] [address] Phone Care Team Providers Care Route Specialist Name Role Phone Tony Valenzuela Unavailable Unavailable Procedures Procedure Date Office/outpatient Visit, Est Dilated Retinal Exam W Interpretation Il Vision Svcs Frames Purchases Progressive Lens, Polycarb Tint Photochromatic, Polycarb 9 Tax - Medical Post-op Follow-up Visit Post-op Follow-up Visit Post-op Follow-up Visit Remove Cataract, Insert Lens Eye Exam & Treatment IOLMaster Office/outpatient Visit, Est Dilated Retinal Exam W Interpretation Il Eye Exam & Treatment Dilated Retinal Exam W Interpretation Advance Directives Directive Yes / No Effective Date File Name No Information Encounters Encounter Description Practice Location Reason(s) For Visit Diagnoses Date Provider Providers Copied on Encounter Office/outpa tient Visit, Est [facility], [address], , [id number], [place] tel:[phone] [facility] No Information 0 Nicolas Jimenez. [address] [facility] [address], [place], [address], [place]. tel:[phone] [facility], [address], , [id number], [place] tel:[phone] [facility] No Information 6-200 9 [facility]. [address] [facility], [address], [place], [place], [id number], [place]. tel:[phone] Referring Provider: Tony Valenzuela, [address] [address], [place], [address]. tel:[phone] g Provider: Tiara Lama, [address] [place], [address]. tel:[phone] [facility], [address] [place] [address] [address], , [id number], [place] tel:[phone] [facility] No Information 7-200 9 Krishnasamy Tony. [address] [place] [address], [address], [place]. tel:[phone] [facility], [address] [place] [address] [address], , [id number], [place] [phone] [facility] No Information Dec-1 0-200 8 Krishnasamy Tony. [address] [place] [address], [address], [place]. tel:[phone] [facility], [address] [place] [address] [address], , [id number], [place] tel:[phone] [facility] No Information Dec-0 3-200 8 Krishnasamy Tony. [address] [place] [address], [address], [place]. tel:[phone] [facility], [address], , [id number], [place] tel:[phone] [facility] No Information Dec-0 2-200 8 Krishnasamy Tony. [address] [facility] [address], [place], [address], . tel:[phone] [facility], [address] [place] [address] [address], , [id number], tel:[phone] [place] [address] No Information 9-200 8 Krishannalise Lopeshil. [address], [place], [facility], [place]. tel:[phone] Referring Provider: Tony Valenzuela, [facility] [address], [place], [facility]. tel:[phone] Office/outpa [place]ient Visit, [facility] [address] [place] [address] [address], , [id number], tel:[phone] [facility] No Information 1-200 8 Krishnasaron Tony. [address] [place], [place] [address], [place], [facility], [place]. tel:[phone] Referring Provider: Dallin Garrett, [facility] [address], [place], [facility]. tel:[phone] [facility], [address] [place] [address] [address], , [id number], tel:[phone] [place] [address] No Information 8-200 8 Araujo OD Dallin. [facility] [address] , [address], [place], [facility], [place]. tel:[phone] Referring Provider: Keyur Barragan MD C, [address], [place], [address]. tel:[phone] Family History Family Member Type Diagnosis Age At Onset No Information Payers Payer name Insurance type Covered alliance party ID Authoriza tion(s) Medicare [facility] [id number] BCBS [place] Out Of State [id number] Social History Type Description Quantity Date Captured Comments Sex Female Smoking Status No Information Chief Complaint And Reason For Visit No Information Reason For Referral Reason For Referral No Information History Of Present Illness Encounter Date Complaint History Of Prese nt Illness No Information Functional Status Date Functional Assessmen t No Information Instructions Date Instruction Additional Infor mation No Information Assessments Type Assessment Date No Information Patient Care Teams Name Effective Dates (start - stop) Status Members No Information
--- OUTSIDE RECORDS SUMMARY | 2024-07-04 01:43 | XMS_ITS | Data Portability ---
Author Organization [place] [facility], Main Office Address [address] [place] [address] Assessment Encounter Date Assessment Date Assessment LastModified by Organization Details LastModified Time 06/02/2024 06/02/2024 The patient has severe rotator cuff tear arthropathy of the right shoulder with significant superior subluxation of the humeral head and efhr-mw-[id number] glenohumeral osteoarthritis. We talked about treatment options today in detail she is not a good candidate for shoulder arthroplasty due to her age and other medical issues. Currently she resides in an assisted living facility. Her daughter agrees they would rather avoid surgery. We talked about treatment options I have recommended cortisone they wanted to proceed therefore under sterile conditions I injected the patient's right shoulder joint in the office with 4 cc 0.5% bupivacaine and 20 mg of Kenalog. Patient tolerated the procedure well. I have advised him we could do this again in 3 months if necessary they would like to stay with that plan for intermittent cortisone injections as needed rather than consider aggressive measures. We talked about doing some therapy they wanted to proceed we will get her set up for range of motion and gentle strengthening as well to maintain function in the shoulder as much as possible. The patient and her daughter would like to do that at the assisted living facility they do have therapy there we will get that order for them today. She will continue with meloxicam I will see her back in 3 months if necessary they voiced understanding and agreed with the above plan. [email or web address] Not available 06/02/2024 13:14:28 Plan of Treatment Reminders Order Date Submit Date Provider Last Modified By Organization Details Last Modified Time Details Appointments Any 5 2024 10:45A M OLY Wilson Not available Not available Not available Lab None recorded. Referral physical therapist referral 2023 024 HELEN [facility], [address], [place], [address], 06/02/2024 14:32:45 Procedures injection /aspirati on joint/bur sa (PROC) 2023 024 [email or web address] In-Office Order, Internal Use Only DO Not Attach Compendium DO Not Attach Compendium, Do Not Delete/merge, [id number] 06/02/2024 12:10:52 Surgeries None recorded. Imaging XR, shoulder 2023 024 [email or web address] [facility], [address], [place], [address], 06/02/2024 13:16:19 Medication Orders bupivacai ne HCl 0.5 % (5 mg/mL) injection solution [address] [place] [address] [facility], [address] [place] [address], [address], 06/02/2024 12:25:14 Kenalog 10 mg/mL suspensio n for injection 2023 [address] [place] [address] [facility], [address] [place] [address], [address], 06/02/2024 12:25:14 Patient TargetsNo targets recorded. Patient InstructionsNo instructions recorded. Reason for Referral Physical Therapist Referral for Pain of right shoulder joint Referring Physician: Kade White, Orthopedic Surgery, Encounter Date: 06/02/2024 Results Created Date Observation Date Name Description Value Unit Range Abnormal Flag Note LastModifiedBy Organization Detail LastModifiedTime 06/02/20 24 XR, shoul april No observ ation record ed. [email or web address] [facility] [address], [place], [address], 06/02/2024 13:16:17 Result Notes None recorded. Problems Name Problem SNOMED Code Status Onset Date Resolution Date Notes Provider Name and Address Organization Details Recorded Time Pain of right shoulder joint 2287485067741 9100 Active 2023 KELBY Sánchez, [place] [facility] 4 11:22:13 Rotator cuff arthropathy of right shoulder 0636814097461 9106 Active 2023 OLY Wilson [address] [facility], [place], [address] [facility] 13:16:37 Problem Notes None recorded. Procedures Surgical History Date Name Laterality Status Provider Name and Address Organization Details Recorded Time Back Surgery completed Isha Giang CNA [place] [facility] 06/02/2024 11:18:29 Spinal cord stimulator-tria l vs permanent completed Isha Giang CNA [place] [facility] 06/02/2024 11:18:42 Imaging Results Imaging Date Name Status LastModified by Organiz ation Details LastModified Time 06/02/2024 XR, shoulder completed [email or web address] [facility] [address] [facility] [address], [place], [address], 06/02/2024 13:16:17 Procedure Notes None recorded. Medical Equipment None Reported. Allergies Allergen ID Allergen Name Allergen Category Reaction Reaction Severity Criticality Documentation Date Start Date Code Code System Note Provider Name and Address Organization Details Recorded Time 32416 Medicinal product containin g penicilli n and acting as antibacte rial agent (product) medicatio n hives Not available Not available 06/02/2024 30039 05 SNOMED KELBY Sánchez, [place] [facility] 11:11:59 84665 epinephri ne medicatio n Not available Not available Not available 06/02/2024 3992 RxNorm passe d out CHERELLE SánchezA null, [place] [facility] 11:12:47 Medications Name Sig Start Date Stop Date Status Note LastModified by Organization Details LastModified Time furosemide 40 mg tablet active Not Available Not Available Not Available atorvastati n 40 mg tablet active Not Available Not Available Not Available carvedilol 12.5 mg tablet active Not Available Not Available Not Available meloxicam 15 mg tablet active Not Available Not Available Not Available bupivacaine HCl 0.5 % (5 mg/mL) injection solution Take 20 mg by injection route. 2023 active Not Available Not Available Not Avai lable omeprazole 40 mg capsule,del ayed release active Not Available Not Available Not Available meloxicam 7.5 mg tablet 06/02 completed Not Available Not Available Not Available potassium chloride ER 20 mEq tablet,exte nded release(par t/cryst) active Not Available Not Available Not Available Kenalog 10 mg/mL suspension for injection Take 20 mg by injection route. 2023 active [facility]: [phone] Not Available Not Available Not Available benzonatate 100 mg capsule Take 1 capsule every day by oral route. active Not Available Not Available No t Available losartan 25 mg tablet active Not Available Not Available No t Available niacin 500 mg tablet Take 1 tablet every day by oral route. active Not Available Not Available No t Available Oyster Shell Calcium-Vit clemons D3 500 mg-5 mcg (200 unit) tablet active Not Available Not Available Not Available ibandronate 150 mg tablet active Not Available Not Available Not Available Vitals Date Recorded Body height Body mass index (BMI) Body weight Provider Name and Address Organization Details Last Updated DateTime 06/02/2024 149.86 cm 28.7 kg/m2 50161.12 g Isha Giang CNA [facility] 06/02/2024 11:11:17 Social History Question Answer Notes LastModified by Organizat ion Details LastModified Time Tobacco Smoking Status Never Smoker Isha Giang CNA null, [facility] 06/02/2024 11:18:20 What Is Your Level Of Alcohol Consumption? None Information not available 06/02/2024 Sex: Unknown Functional Status None recorded. Mental Status None recorded. Family History Relationship Description Onset Age of this Age Resolved Age Notes LastModified by Organization Details LastModified Time Father Heart disease [email or web address] Not available 2023 11:17:06 Son Blood coagulation disorder [email or web address] Not available 2023 11:17:19 Sister Kidney disease [email or web address] Not available 2023 11:17:30 Unspecified Relation Diabetes mellitus multip le family member s Not available 06/02/2024 11:17:52 Notes:cancer-mother and fath er Medical History Condition Response ARTHRITIS Y SKIN PROBLEMS Y OSTEOPOROSIS Y USE OF NSAIDS Y COPD Y HYPERTENSION Y Gynecological HistoryNo gynecological history recorded. Obstetrics History GPAL:G 0 P 0 0 0 0 Past Encounters Encounter ID Performer Location Encounter Start Date Encounter Closed Date Diagnosis/Indication Diagnosis SNOMED-CT Code Diagnosis ICD10 Code Diagnosis Note [id number] OLY Wilson [facility] [place] [address] [place] [address] 06/02/2024 10:41:21 06/02/2024 12:23:23 Pain of right shoulder joint 0939143275 6229864 M25.511 Rotator cu ff arthropathy of right shoulder 8022197413 3754992 M25.811 Health Concerns Section Related Observation LastModified by Organization Detai ls LastModified Time None Recorded Concern Status LastModified by Organization Details LastModified Time None Recorded Advance Directives Directive None Recorded Payers Encounter Date Sequence Insurance Name Policy Number Policy Gallegos Covered Member ID Gallegos Member ID Guarantor Name 06/02/2024 1 [employer] (MEDICARE REPLACEMENT PPO) [id number] Brianna Martinez [id number] Brianna Martinez 06/02/2024 2 [place] [facility] [place] OF PUBLIC AID Brianna Martinez [id number] Brianna Martinez Notes Date Note Type Note Provider Name and Address Organization Details Recorded Time 06/02/2024 text/html The patient is a 84-year-old female who comes in with a long history of right shoulder pain. She states as long as 13 years ago she was having trouble with her shoulder had some therapy at that time and also shot of cortisone this was done elsewhere. She states over the years she has had pain on and off but lately she has had pretty persistent pain for about a month. It limits her daily activities she has a hard time raising her arm up overhead she reports chronic weakness and dysfunction in the shoulder with some crepitation aching pain that keeps her from doing anything in terms of regular wrists or repetitive activities. The pain is mainly localized to the shoulder does not radiate down the arm she denies any new weakness no new loss of motion in the last month. She has chronic issues. She was told a long time ago that she had some osteoarthritis in the shoulder. Today she states the pain is about a 6 on a scale of 1-10. She does take meloxicam daily to help with her back she has chronic back issues and has had surgery with a spinal stimulator as well. This does help her shoulder somewhat but lately not so much. She has had no trauma or injury to the shoulder that she is aware of and has not been evaluated here. Been a long time since she has had any evaluation or treatment for her right shoulder she comes in today for initial evaluation and treatment. Due to the patient's age and other medical issues we are somewhat limited in our treatment options, we will have to stick with conservative measures as she is not a candidate for shoulder surgery. New past medical history sheet was reviewed and signed on intake sheet of today's date drug allergies current medications family social history previous surgical history 10 point review of systems was reviewed and discussed in detail today with the patient. OLY Wilson [address] [facility], [facility] [address], [place], [address], [place] [facility] 06/02/2024 13:21:16 OBGyn Episode No OBEpisode recorded.
--- OUTSIDE RECORDS SUMMARY | 2024-07-04 01:43 | XMS_ITS | Continuity of Care Document ---
Author Organization [place] [facility] [employer] [facility], [facility] [place] Address [address] [place] [address] Assessment Encounter Date Assessment Date Assessment LastModified by Organization Details LastModified Time 06/02/2024 06/02/2024 The patient has severe rotator cuff tear arthropathy of the right shoulder with significant superior subluxation of the humeral head and yyii-fz-yvzh glenohumeral osteoarthritis. We talked about treatment options [...] Referral physical therapist referral 2023 024 HELEN [facility], [address], [place], [address], 06/02/2024 14:32:45 Procedures injection /aspirati on joint/bur sa (PROC) 2023 024 [email or web address] In-Office Order, Internal Use Only DO Not Attach Compendium DO Not Attach Compendium, Do Not Delete/merge, [id number] 06/02/2024 12:10:52 Surgeries None recorded. Imaging XR, shoulder 2023 024 [email or web address] [facility] [place], [address], [place], [address], 06/02/2024 13:16:19 Medication Orders bupivacai ne HCl 0.5 % (5 mg/mL) injection solution [email or web address], [address] [place] [address], [id number], 06/02/2024 12:25:14 Kenalog 10 mg/mL suspensio n for injection 2023 024 [email or web address], [address] [place] [address], [id number], 06/02/2024 12:25:14 Patient TargetsNo targets recorded. Patient InstructionsNo instructions recorded. Reason for Referral Physical Therapist Referral for Pain of right shoulder joint Referring Physician: Kade White, Orthopedic Surgery, Encounter Date: 06/02/2024 Results Created Date Observation Date Name Description Value Unit Range Abnormal Flag Note LastModifiedBy Organization Detail LastModifiedTime 06/02/20 24 XR, shoul april No observ ation record ed. [email or web address] [facility] [place] [address], [place], [address], 06/02/2024 13:16:17 Result Notes None recorded. Problems Name Problem SNOMED Code Status Onset Date Resolution Date Notes Provider Name and Address Organization Details Recorded Time Pain of right shoulder joint 4497000797271 9100 Active 2023 KELBY Sánchez, [place] [facility] 4 11:22:13 Rotator cuff arthropathy of right shoulder 5163118589689 9106 Active 2023 OLY Wilson [address] [facility] [facility] [address], [place], [address] 13:16:37 Problem Notes None recorded. Procedures Surgical History Date Name Laterality Status Provider Name and Address Organization Details Recorded Time Back Surgery completed CHERELLE SánchezA [place] - [facility] 06/02/2024 11:18:29 Spinal cord stimulator-tria l vs permanent completed CHERELLE SánchezA [place] [facility] 06/02/2024 11:18:42 Imaging Results Imaging Date Name Status LastModified by Organiz ation Details LastModified Time 06/02/2024 XR, shoulder completed [email or web address] [facility] [place] [address], [place], [address], 06/02/2024 13:16:17 Procedure Notes None recorded. Medical Equipment None Reported. Allergies Allergen ID Allergen Name Allergen Category Reaction Reaction Severity Criticality Documentation Date Start Date Code Code System Note Provider Name and Address Organization Details Recorded Time 92432 Medicinal product containin g penicilli n and acting as antibacte rial agent (product) medicatio n hives Not available Not available 06/02/2024 55852 05 SNOMED CHERELLE SánchezA jennifer, [place] - [facility] 11:11:59 86441 epinephri ne medicatio n Not available Not available Not available 06/02/2024 3992 RxNorm passe d out Isha Giang [employer] null, [place] - [facility] 11:12:47 Medications Name Sig Start Date Stop [...] 20 mg by injection route. 2023 active [facility]: 0003- 0494- 20 Not Available Not Available [...] Updated DateTime 06/02/2024 149.86 cm 28.7 kg/m2 39971.12 g Isha Giang CNA [employer] [facility] 06/02/2024 11:11:17 Social History Question Answer Notes LastModified by Organizat ion Details LastModified Time Tobacco Smoking Status Never Smoker Isha Giang CNA null, [employer] [facility] 06/02/2024 11:18:20 What Is Your Level Of [...] Condition Response ARTHRITIS Y SKIN PROBLEMS Y COPD Y HYPERTENSION Y OSTEOPOROSIS Y USE OF NSAIDS Y Gynecological HistoryNo gynecological history recorded. Obstetrics History GPAL:G 0 P 0 0 0 0 Past Encounters Encounter ID Performer Location Encounter Start Date Encounter Closed Date Diagnosis/Indication Diagnosis SNOMED-CT Code Diagnosis ICD10 Code Diagnosis Note [id number] OLY Wilson [facility] [place] [address] [place] [address] 06/02/2024 10:41:21 06/02/2024 12:23:23 Pain of right shoulder joint [id number] 2692003 M25.511 Rotator cu ff arthropathy of right shoulder 5463976704 7302080 M25.811 Health Concerns Section Related Observation LastModified by Organization Detai ls LastModified Time None Recorded Concern Status LastModified by Organization Details LastModified Time None Recorded Payers Encounter Date Sequence Insurance Name Policy Number Policy Gallegos Covered Member ID Gallegos Member ID Guarantor Name 06/02/2024 1 [employer] (MEDICARE REPLACEMENT PPO) [id number] Brianna Martinez [id number] Brianna Martinez 06/02/2024 2 [place] [facility] Brianna Martinez [id number] Brianna Martinez Notes Date Note Type Note [...] today with the patient. OLY Wilson [address], [place], [address], [place] [facility] [employer] [facility] [employer] 06/02/2024 13:21:16 OBGyn Episode No OBEpisode recorded.
[2024-07-04 06:00] VITALS: BP 184/60; PULSE 80; RESP 20; TEMP 36.4; O2SAT 94
[2024-07-04 06:25] VITALS: BP 177/68; PULSE 99; RESP 18; TEMP 37; O2SAT 95
[2024-07-04] MEDS: LOSARTAN POTASSIUM 25 MG TABLET PO (06:41)
[2024-07-04 07:05] LABS: Hemoglobin 12.6 g/dL (12.0-15.0); Mean Corpuscular HGB Conc 32.3 g/dl (32-36); Mean Corpuscular Hemoglobin 31.9 pg (26-34); Mean Corpuscular Volume 98.7 fl (80-100); Mean Platelet Volume 10.1 fl (7.4-10.4); Platelet Count Result 241 k/mm3 (150-375); Red Blood Count 3.95 M/mm3 (4.2-5.4); Red Cell Distribution Width 13.8 % (11.5-14.5); White Blood Count 6.2 K/mm3 (4.5-10.0)
[2024-07-04 07:38] LABS: Alanine Aminotransferase 111 U/L (6-35); Albumin Level 3.6 g/dL (3.5-5.1); Alkaline Phosphatase 55 U/L (38-126); Anion Gap 4 mmol/L (4-12); Aspartate Amino Transferase 94 U/L (14-36); Bilirubin,Total 0.8 mg/dL (0.2-1.3); Blood Urea Nitrogen 15 mg/dL (7-17); Calcium 9.8 mg/dL (8.4-10.2); Carbon Dioxide 28 mmol/L (22-30); Chloride 102 mmol/L (98-107); Estimated Glomerular Filt Rate 60; Glucose 107 mg/dL (65-110); Potassium 4.3 mmol/L (3.4-5.0); Sodium 134 mmol/L (137-145)
--- NOTE | 2024-07-04 09:15 | PCNWS ---
Weekly nutritional screen. Patient is tolerating current heart healthy diet with adequate intake 100% of meals. No weight loss reported. No nutritional needs at this time.
[2024-07-04] MEDS: FUROSEMIDE 40 MG TABLET PO (09:17)
[2024-07-04] MEDS: CALCIUM/VITAMIN D 500 MG/5 MCG (200 I.U.) TABLET PO ×2 (09:17→12:34)
[2024-07-04] MEDS: PANTOPRAZOLE 40 MG TABLET PO (09:17)
[2024-07-04] MEDS: POTASSIUM CHLORIDE 20 MEQ ER TABLET PO (09:18)
[2024-07-04] MEDS: ENOXAPARIN 40 MG/0.4 ML SYRINGE SUB-Q (09:18)
[2024-07-04] MEDS: DICLOFENAC SODIUM 1% 100 GM GEL (*BKC) 1 APPLIC TOPICAL ×2 (09:19→12:34)
[2024-07-04] MEDS: ACETAMINOPHEN 325 MG TABLET 650 MG PO (09:27)
[2024-07-04] MEDS: ONDANSETRON INJ 4 MG/2 ML VIAL IV PUSH (10:12)
[2024-07-04] MEDS: ONDANSETRON HCL ODT 4 MG TABLET PO (11:16)
--- NOTE | 2024-07-04 13:09 | PM.DS ---
DS: Admitting Diagnosis Discharge Date 07/04/2024 Admitting Diagnosis Syncope DS: Discharge Diagnosis Discharge Diagnosis (1) Bradycardia: Code(s): R00.1 - Bradycardia, unspecified Status: Acute (2) HLD (hyperlipidemia): Qualifiers: Hyperlipidemia type: mixed hyperlipidemia Qualified Code(s): E78.2 - Mixed hyperlipidemia Code(s): E78.5 - Hyperlipidemia, unspecified Status: Acute (3) CKD (chronic kidney disease) stage 3, GFR 30-59 ml/min: Code(s): N18.30 - Chronic kidney disease, stage 3 unspecified Status: Acute (4) Essential hypertension: Code(s): I10 - Essential (primary) hypertension Status: Acute DS: Summary Hospital Course Hospital Course: 84-year-old female with a past medical history of osteopenia, spinal stenosis, right rotator cuff tear, hyperlipidemia, essential hypertension, GERD, COPD, diabetes mellitus and peripheral neuropathy who presented to the ER from [facility] after having a syncopal event. The patient had gotten up to walk to the bathroom when she suddenly became lightheaded in the next thing she knew she woke up on the floor. She reports that she has been in her usual state of health. She had noticed some per Min episodes of weakness and shortness of breath that have been ongoing for the last several months. However the episodes would not last very long. She denies any chest pain or palpitations. She has not noticed any significant shortness of breath. On EMS arrival to her home the patient was noted to be bradycardic with heart rates in the 30s and 40s and she had several episodes of pausing. Patient's rhythm is extremely irregular in the ER although the EKG obtained in the ER demonstrated sinus bradycardia. Her telemetry has since demonstrated variable rhythm with frequent bigeminy and pauses. At times the telemetry appears to have P waves and at other times they are absent. In the ER the patient did have an episode where she became in bradycardic down into the low 20s when she went to CT scan. At that time she became nauseous and flushed in felt ill. She was near syncopal at that time. She did get 1 dose of glucagon to try to reverse the effects of her Coreg. She has been on Coreg for years in her doses unchanged. She was started on low-dose dopamine in the ER to try to avoid episodes of symptomatic bradycardia. All of the patient's recorded blood pressures from the ER have been upper limit of normal after the patient placed on dopamine her blood pressures have been high ranging between 160s to 200s systolic. The only other symptom that she reports to me is that she now acutely feels like she cannot urinate. She reports his sensation of fullness in her bladder. She denies any dysuria. She states that she did not had the symptoms with her bladder prior to coming to the hospital. Source of information comes from review of past medical records, ER physician report, EMS report and patient report. Patient is alert orient x3. Multiple staff members have had discussion of about code status with the patient. She initially stated that she did not know she wanted want cardiopulmonary resuscitation. She then stated that she would be open to a pacemaker. In when she came to the ICU she stated that she did not think she would want a pacemaker. At this time will hold patient's Coreg. The patient would like her son to be present when she is evaluated by the finance executive so that they can discuss whether she gets a pacemaker the family. I assumed care on 07/03/2024. Patient is treated for the following conditions.Today I spoke with her daughter in law and explained the hospital events. Patient lasix was held in ICU and today I restarted as per cardiology recommendation. Symptomatic bradycardia: Resolved -Patient presented with syncope, symptomatic bradycardia with heart rates in the 20s to 40s with brief pauses. EKG did show sinus bradycardia -Patient status post glucagon, also was started on dopamine infusion which is currently off -Off Coreg and Hr wnl -Supervisor [employer] recommends 30 day monitor as an outpatient given syncope. HTN (hypertension): -Blood pressures have been stable to high at times -restart losartan 25 mg PO QD, can increase Losartan to 50mg PO QD if BP >150/90 -avoid AV dulce maria blockers CKD (chronic kidney disease) stage 3, GFR 30-59 ml/min: -Patient with CKD, creatinine close to baseline -continue to monitor urine output, renal function electrolyte HLD Continue atorvastatin Urinary retention oFf veras continue Tamsulosin Urology consulted and follow up as OP Status at Discharge Cognitive/behavioral status at discharge: Stable Time Spent with Patient Time attestation: Total time spent providing and/or coordinating discharge services: 45 minute Exam Narrative: General: Pleasant female in no acute distress HEENT:? Pupils equal and reactive, sclerae is clear, moist oral mucosa Neck:? Supple Respiratory:? Clear to auscultation bilaterally, decreased at bases, adequate air entry Cardiac:? Irregularly irregular, rate controlled Abdomen:? Soft, nontender, nondistended, normoactive bowel sounds Extremities:? No edema, palpable pedal pulses Neuro:? Patient is awake, alert, oriented, nonfocal, able to answer questions and follow simple commands Skin:? Warm and dry Psych:? Normal mentation and affect Const: Other: Weight 67.3 kg BMI 30 HENMT: Other: Mucous membranes are dry, no oral pharyngeal erythema, fair dentition, head is normocephalic atraumatic Eyes: Other: Pupils are equal and reactive, bilateral lens replacements noted, extraocular movements intact Neck: Other: No JVD, no thyromegaly Resp: Other: Clear to auscultation bilaterally, no increased work of breathing Cardio: Other: Irregularly irregular rhythm, 2+ bilateral radial pedal pulses, no murmur, no JVD GI: Other: Soft, nontender, palpable fullness in the lower abdomen that seems to and around the umbilicus, normoactive bowel sounds Skin: Other: No jaundice, no pallor Neuro: Other: Alert orient x3, speech is clear, no facial asymmetry, no localizing neurologic deficits noted during conversation Extrem: Other: No clubbing, cyanosis or edema, moves all extremities equally Psych: Other: Appropriate mood and affect, pleasant and cooperative, judgment and insight fair DS: Data Data Completed and Pending Labs on day of discharge: Labs from last 24 hours 07/04/24 06:17 WBC 6.2 RBC 3.95 L Hgb 12.6 Hct 39.0 MCV 98.7 MCH 31.9 MCHC 32.3 RDW 13.8 Plt Count 241 MPV 10.1 Sodium 134 L Potassium 4.3 Chloride 102 Carbon Dioxide 28 Anion Gap 4 BUN 15 Creatinine 0.90 Estim Creat Clear Calc Not Reportable Estimated GFR 60 Glucose 107 Calcium 9.8 Total Bilirubin 0.8 AST 94 H ALT 111 H Alkaline Phosphatase 55 Total Protein 7.0 Albumin 3.6 Discharge Plan Discharge Attending physician on discharge: Александр Helm Consulting providers: Mayra Armstrong; Radha Burnette Jeffrey A. Discharging Clinician: Александр Helm Anticipated Discharge Date/Time: 07/01/24 09:18 Patient Disposition: NH Senior Living/Asst Living Activity: as tolerated Diet: as tolerated and heart healthy Discharge Instructions: Per Care Coordination: [facility] will contact you prior to their first visit. [facility] will follow for PT/OT eval and treat. [facility] can be contacted at [phone]. Patient is discharged with Losartan 25 mg PO QD and if blood pressure is above 150/90 consistently can increase Losartan to 50 mg PO QD. During hospitalization Carvedilol is discontinued due to bradycardia. Please print ECHOCARDIOGRAM results. Patient needs to go with personal attendant and follow up with Cardiology Rise slowly from a lying or sitting position. Pause before standing or walking. Contact your doctor or call 911 and come to the Emergency Room if you have syncopal episodes,dizziness,palpitations. Avoid NSAIDs (ibuprofen, naproxen, Aleve). Tylenol is safe to take. Follow-up with your primary care provider and urology in 1-2 weeks. Please call for appointment. Follow-up with Cardiology in 2-4 weeks. Please call for an appointment. Thank you for using [facility] for your health care needs. Patient Instructions: Antibiotic Form, Heart Failure (GEN) Patient Language: Armenian Stand Alone Forms: General Discharge Information Follow-up/Referrals: Norbert Landry MD [Primary Care Provider] - (Follow-up with primary care doctor in 1 week) Neeraj Lambert MD [Physician] - (Follow-up with finance executive at scheduled appointment) Discharge Medications: New tamsulosin 0.4 mg Capsule 0.4 mg PO QHS Qty: 30 0RF Continued niacin 500 mg tablet 500 mg PO TID benzonatate 100 mg capsule 100 mg PO TID atorvastatin 40 mg tablet See Rx Instructions .ROUTE .COMPLEX Qty: 90 2RF Dose Instruction: TAKE 1 TABLET BY MOUTH ONCE DAILY Rx Instructions: TAKE 1 TABLET BY MOUTH ONCE DAILY meloxicam 15 mg tablet See Rx Instructions .ROUTE .COMPLEX Qty: 90 2RF Dose Instruction: TAKE 1 TABLET BY MOUTH ONCE DAILY Rx Instructions: TAKE 1 TABLET BY MOUTH ONCE DAILY furosemide 40 mg tablet See Rx Instructions .ROUTE .COMPLEX Qty: 90 2RF Dose Instruction: TAKE 1 TABLET BY MOUTH ONCE DAILY Rx Instructions: TAKE 1 TABLET BY MOUTH ONCE DAILY omeprazole 40 mg capsule,delayed release(DR/EC) See Rx Instructions .ROUTE .COMPLEX Qty: 90 2RF Dose Instruction: TAKE 1 CAPSULE BY MOUTH DAILY Rx Instructions: TAKE 1 CAPSULE BY MOUTH DAILY calcium carbonate-vitamin D3 [Oyster Shell Calcium-Vit D3] 500 mg-5 mcg (200 unit) tablet 1 tablet PO TID Qty: 270 2RF ibandronate 150 mg tablet See Rx Instructions .ROUTE .COMPLEX Qty: 3 2RF Dose Instruction: TAKE 1 TAB BY MOUTH ON EMPTY STOMACH ONCE A MONTH REMAIN UPRIGHT.DO NOT EAT 1HR AFTER DOSE Rx Instructions: TAKE 1 TAB BY MOUTH ON EMPTY STOMACH ONCE A MONTH REMAIN UPRIGHT.DO NOT EAT 1HR AFTER DOSE potassium chloride 20 mEq tablet,ER particles/crystals See Rx Instructions .ROUTE .COMPLEX Qty: 90 2RF Dose Instruction: TAKE 1 TABLET BY MOUTH DAILY WITH FOOD Rx Instructions: TAKE 1 TABLET BY MOUTH DAILY WITH FOOD losartan 25 mg tablet See Rx Instructions .ROUTE .COMPLEX Qty: 30 5RF Dose Instruction: TAKE 1 TABLET BY MOUTH ONCE DAILY Rx Instructions: TAKE 1 TABLET BY MOUTH ONCE DAILY Discontinued carvedilol 12.5 mg tablet See Rx Instructions .ROUTE .COMPLEX Qty: 180 2RF Dose Instruction: TAKE 1 TABLET BY MOUTH TWICE DAILY WITH MEALS Rx Instructions: TAKE 1 TABLET BY MOUTH TWICE DAILY WITH MEALS Other Ambulatory Orders: [place] cardiac event monitor (Routine) Timeframe: 1 Month Location: Determined by Patient Ordered By: Neeraj Lambert Date of admission: 06/27/24 07:34 Primary Care Provider: Norbert Landry Admitting Provider: Ruby Hall Attending physician on admission: Ruby Hall Condition: Stable
[2024-07-04 14:00] VITALS: BP 145/56; PULSE 105; RESP 18; TEMP 36.9; O2SAT 96
[2024-07-04 14:45] LABS: SARS-CoV-2 RNA PCR Negative (Negative)
== END 2024-07-04 15:15 ==
LOC: ANHED 06-27 02:36 → ANHICU 06-27 06:55 → ANHIMU 06-28 12:24 → ANH3MEDSUR 07-03 12:28 → ANHICU 07-05 07:27 → ANHIMU 07-05 07:27
PROVIDERS: Internal Medicine; Admitting Provider Internal Medicine; Emergency Provider Emergency Medicine; PCP Emergency Medicine; Visit Provider General Practice
DX: R00.1 Bradycardia, unspecified (principal); R42 Dizziness and giddiness; E11.42 Type 2 diabetes mellitus with diabetic polyneuropathy; E11.22 Type 2 diabetes mellitus with diabetic chronic kidney disease; I12.9 Hypertensive chronic kidney disease with stage 1 through stage 4 chronic kidney disease, or unspecified chronic kidney disease; N18.30 Chronic kidney disease, stage 3 unspecified; E78.2 Mixed hyperlipidemia; R33.9 Retention of urine, unspecified; K21.9 Gastro-esophageal reflux disease without esophagitis; J44.9 Chronic obstructive pulmonary disease, unspecified; E55.9 Vitamin D deficiency, unspecified; R06.02 Shortness of breath; R06.83 Snoring; M75.101 Unspecified rotator cuff tear or rupture of right shoulder, not specified as traumatic; G89.29 Other chronic pain; M85.80 Other specified disorders of bone density and structure, unspecified site; M81.0 Age-related osteoporosis without current pathological fracture; M48.00 Spinal stenosis, site unspecified; Z20.822 Contact with and (suspected) exposure to COVID-19; Z79.51 Long term (current) use of inhaled steroids; Z79.899 Other long term (current) drug therapy; Z96.1 Presence of intraocular lens; Z98.42 Cataract extraction status, left eye; Z98.41 Cataract extraction status, right eye; Z96.82 Presence of neurostimulator
CPT/HCPCS: 36415; 70450; 71045; 72125; 73562; 80053; 83605; 83690; 83735; 83880; 84132; 84484; 85025; 85027; 85610; 85730; 87635; 87637; 87641; 93005; 93306; 93880; 94762; 96361; 96372; 96374; 96375; 96376; 97110; 97161; 97165; 97530; 97535; 99285; A9270; G0378; J1265; J1610; J1650; J2405; J2765; J7030; J7050